=== PATIENT | female | born 1970 | race African-American/Black ===

== ENCOUNTER 2017-01-01 07:53 | Emergency (ER) | payer MEDICAID ==
[~2017-01-01] VITALS: Ht 167.6 cm; Wt 72.0 kg
[~2017-01-01 07:53] MED LIST: HYDR12.54 PO; LORA0.5T2 PO; OXYC-23 PO
[2017-01-01] MEDS ORDERED: ONDANSETRON HCL 4MG/2ML VIAL IV STA (08:32)
[2017-01-01] MEDS ORDERED: MORPHINE SULFATE 4 MG/ML CPJ (NOT FOR IM USE) IV STA (08:32)
[2017-01-01] MEDS ORDERED: DEXAMETHASONE 10MG/ML 1ML VIAL IV ONE (08:45)
[2017-01-01 09:38] LABS: BASOPHILS % 0.9 % (0.0-2.0); HEMATOCRIT. 34.7 % (36.0-48.0); HEMOGLOBIN. 11.2 g/dL (12.0-16.0); LYMPHOCYTES % 27.1 % (20.0-50.0); MEAN CORPUSCULAR HGB CONC 32.2 g/dL (31.0-37.0); MEAN PLATELET VOLUME 7.3 fl (7.4-10.4); MONOCYTES % 9.7 % (2.0-8.0); NEUTROPHILS % 61.3 % (40.0-76.0); PLATELET 396 x1000/uL (130-400); RED BLOOD CELL COUNT 3.99 mill/uL (4.2-5.4); RED CELL DISTRIBUTION WIDTH 20.3 % (11.6-14.6); WHITE BLOOD COUNT 6.6 x1000/uL (4.5-11.0)
[2017-01-01 09:50] LABS: ALANINE AMINOTRANSFERASE 13 IU/L (13-61); ALBUMIN 3.7 g/dL (3.4-5.0); ANION GAP 13; CALCIUM 8.9 mg/dL (8.5-10.1); CARBON DIOXIDE 24 mEq/L (21-32); CHLORIDE 105 mEq/L (98-107); INDEX HEMOLYSI 1 (1-3); INDEX ICTERIC 1 (1-4); INDEX LIPEMIC 1 (1-3); UREA NITROGEN BLOOD 13 mg/dL (7-21); eGFR > 60 mL/min (>60)
[2017-01-01] MEDS ORDERED: ACETAMINOPHEN 325MG TABLET PO ONE (10:00)
[2017-01-01 10:11] LABS: HCG SCREEN NEGATIVE
[2017-01-01] MEDS ORDERED: IBUPROFEN 800MG TABLET PO ONE (10:45)
[2017-01-01] MEDS ORDERED: HYDROCODONE/ACETAMINOPHEN 5/325MG TABLET PO ONE (10:45)
[2017-01-01 11:02] VITALS: BP 124/94
[2017-01-03 13:07] LABS: HGB A 98.3 % (94.0-98.0); HGB A2 1.7 % (0.7-3.1); HGB SOLUBILITY Negative (Negative)
== END 2017-01-01 12:21 | disposition home or self-care (01) ==
LOC: ER 08:00
DX: M54.42 Lumbago with sciatica, left side (principal); M54.41 Lumbago with sciatica, right side; D64.9 Anemia, unspecified; K21.9 Gastro-esophageal reflux disease without esophagitis; I10 Essential (primary) hypertension; D57.80 Other sickle-cell disorders without crisis; J45.909 Unspecified asthma, uncomplicated; Z76.5 Malingerer [conscious simulation]; Z88.0 Allergy status to penicillin; Z88.6 Allergy status to analgesic agent
CPT/HCPCS: 36415; 71010; 72100; 73502; 80053; 83021; 83615; 84703; 85025; 85044; 85660; 93005; 93971; 96374; 96375; 99285; J1100; J2270; J2405; Z7610

== ENCOUNTER 2017-01-05 11:04 | Emergency (ER) | payer MEDICAID ==
[~2017-01-05] VITALS: Ht 162.6 cm; Wt 64.0 kg
[2017-01-05 11:06] VITALS: BP 152/73
[2017-01-05] MEDS ORDERED: ACETAMINOPHEN 325MG TABLET PO ONE (11:15)
[2017-01-05] MEDS ORDERED: ONDANSETRON 4MG ODT PO ONE (11:15)
[2017-01-05 11:39] LABS: BASOPHILS % 0.8 % (0.0-2.0); EOSINOPHILS % 1.1 % (0.0-5.0); HEMATOCRIT. 32.2 % (36.0-48.0); HEMOGLOBIN. 10.3 g/dL (12.0-16.0); LYMPHOCYTES % 17.9 % (20.0-50.0); MEAN CORPUSCULAR HEMOGLOBIN 27.8 pg (28.0-32.0); MEAN CORPUSCULAR VOLUME 86.9 fL (81.0-99.0); MEAN PLATELET VOLUME 7.2 fl (7.4-10.4); MONOCYTES % 6.1 % (2.0-8.0); NEUTROPHILS % 74.1 % (40.0-76.0); PLATELET 370 x1000/uL (130-400); RED BLOOD CELL COUNT 3.71 mill/uL (4.2-5.4); RED CELL DISTRIBUTION WIDTH 21.3 % (11.6-14.6); WHITE BLOOD COUNT 9.3 x1000/uL (4.5-11.0)
[2017-01-05 11:46] LABS: PROTHROMBIN TIME 10.5 sec
[2017-01-05 11:53] LABS: HCG SCREEN NEGATIVE
[2017-01-05 11:57] LABS: ALANINE AMINOTRANSFERASE 16 IU/L (13-61); ALBUMIN 3.8 g/dL (3.4-5.0); ANION GAP 13; CALCIUM 8.9 mg/dL (8.5-10.1); CARBON DIOXIDE 30 mEq/L (21-32); CHLORIDE 107 mEq/L (98-107); INDEX HEMOLYSI 1 (1-3); INDEX ICTERIC 1 (1-4); INDEX LIPEMIC 1 (1-3); LIPASE 89 IU/L (73-393); UREA NITROGEN BLOOD 10 mg/dL (7-21); eGFR > 60 mL/min (>60)
== END 2017-01-05 14:17 | disposition home or self-care (01) ==
LOC: ER 11:49
DX: R10.9 Unspecified abdominal pain (principal); Z88.0 Allergy status to penicillin; Z88.6 Allergy status to analgesic agent; Z79.899 Other long term (current) drug therapy; J45.909 Unspecified asthma, uncomplicated; K21.9 Gastro-esophageal reflux disease without esophagitis; I10 Essential (primary) hypertension; D57.1 Sickle-cell disease without crisis
CPT/HCPCS: 36415; 74000; 80053; 83690; 84703; 85025; 85610; 99285; J7030; Q0162; Z7610

== ENCOUNTER 2017-01-05 19:08 | Emergency (ER) | payer MEDICAID ==
[~2017-01-05] VITALS: Ht 160 cm; Wt 64.0 kg
[2017-01-05] MEDS ORDERED: ONDANSETRON HCL 4MG/2ML VIAL IV ONE (19:45)
[2017-01-05] MEDS ORDERED: SODIUM CHLORIDE 0.9% 1,000 ML IV ONE (19:45)
[2017-01-05] MEDS ORDERED: FAMOTIDINE 20MG/2ML VIAL IV SCH (19:45)
[2017-01-05] MEDS ORDERED: KETOROLAC 60MG/2ML VIAL IM ONE (21:00)
[2017-01-05] MEDS ORDERED: FAMOTIDINE 20MG TABLET PO ONE (21:00)
[2017-01-05] MEDS ORDERED: ONDANSETRON 4MG ODT PO ONE (21:00)
[2017-01-05 22:39] VITALS: BP 126/70
== END 2017-01-05 23:13 | disposition home or self-care (01) ==
LOC: ER 19:52
DX: R10.9 Unspecified abdominal pain (principal); Z88.6 Allergy status to analgesic agent; Z88.0 Allergy status to penicillin; Z79.899 Other long term (current) drug therapy; K21.9 Gastro-esophageal reflux disease without esophagitis; J45.909 Unspecified asthma, uncomplicated; I10 Essential (primary) hypertension; D57.1 Sickle-cell disease without crisis
CPT/HCPCS: 96372; 99283; J1885; J7030; Q0162; Z7610; J2405; J3490

== ENCOUNTER 2017-01-16 04:55 | Emergency (ER) | payer MEDICAID ==
[~2017-01-16] VITALS: Ht 160 cm; Wt 54.0 kg
[2017-01-16] MEDS ORDERED: ONDANSETRON HCL 4MG/2ML VIAL IV STA (06:34)
[2017-01-16] MEDS ORDERED: MAGNESIUM/ALUMINUM HYDROXIDE/SIMETHICONE 30ML UDC PO STA (06:34)
[2017-01-16] MEDS ORDERED: SODIUM CHLORIDE 0.9% 1,000 ML IV ONE (06:34)
[2017-01-16] MEDS ORDERED: MORPHINE SULFATE 4 MG/ML CPJ (NOT FOR IM USE) IV STA (06:34)
[2017-01-16] MEDS ORDERED: VISCOUS LIDOCAINE 2% 15 ML UDC PO STA (06:34)
[2017-01-16 07:18] LABS: BASOPHILS % 0.9 % (0.0-2.0); EOSINOPHILS % 0.2 % (0.0-5.0); HEMATOCRIT. 33.6 % (36.0-48.0); HEMOGLOBIN. 10.8 g/dL (12.0-16.0); LYMPHOCYTES % 26.7 % (20.0-50.0); MEAN CORPUSCULAR HEMOGLOBIN 27.8 pg (28.0-32.0); MEAN CORPUSCULAR HGB CONC 32.1 g/dL (31.0-37.0); MEAN CORPUSCULAR VOLUME 86.7 fL (81.0-99.0); MEAN PLATELET VOLUME 7.8 fl (7.4-10.4); NEUTROPHILS % 60.2 % (40.0-76.0); PLATELET 477 x1000/uL (130-400); RED BLOOD CELL COUNT 3.87 mill/uL (4.2-5.4); RED CELL DISTRIBUTION WIDTH 22.1 % (11.6-14.6); WHITE BLOOD COUNT 7.3 x1000/uL (4.5-11.0)
[2017-01-16 07:26] LABS: INR 1.1; PROTHROMBIN TIME 11.1 sec
[2017-01-16 07:31] LABS: ADD RBC MORPHOLOGY YES; DIFFERENTIAL COMMENT 1; HCG SCREEN NEGATIVE
[2017-01-16 07:34] LABS: ALANINE AMINOTRANSFERASE 22 IU/L (13-61); ALBUMIN 4.2 g/dL (3.4-5.0); ANION GAP 14; CALCIUM 9.9 mg/dL (8.5-10.1); CARBON DIOXIDE 30 mEq/L (21-32); CHLORIDE 96 mEq/L (98-107); ETHANOL BLOOD < 10 mg/dL; INDEX HEMOLYSI 1 (1-3); INDEX ICTERIC 1 (1-4); INDEX LIPEMIC 1 (1-3); LIPASE 408 IU/L (73-393); UREA NITROGEN BLOOD 15 mg/dL (7-21); eGFR > 60 mL/min (>60)
[2017-01-16 07:56] LABS: ANISOCYTOSIS 1+; PLATELET ESTIMATE INCREASED
[2017-01-16] MEDS ORDERED: FAMOTIDINE 20MG TABLET PO ONE (08:30)
[2017-01-16] MEDS ORDERED: DIPHENHYDRAMINE 25MG CAPSULE PO ONE (09:30)
[2017-01-16 09:44] LABS: CLARITY URINE CLEAR (CLEAR); COLOR URINE YELLOW (YELLOW); GLUCOSE URINE NEGATIVE (NEGATIVE); KETONES URINE 3+ (NEGATIVE); LEUKOCYTE ESTERASE URINE NEGATIVE (NEGATIVE); NITRITE URINE NEGATIVE (NEGATIVE); OCCULT BLOOD URINE NEGATIVE (NEGATIVE); PROTEIN URINE NEGATIVE (NEGATIVE); SPECIFIC GRAVITY URINE 1.024 (1.005-1.030)
[2017-01-16 10:20] LABS: *AMPHETAMINES SCREEN URINE NEGATIVE (NEGATIVE); *BARBITURATES SCREEN URINE NEGATIVE (NEGATIVE); *COCAINE SCREEN URINE NEGATIVE (NEGATIVE); ECSTASY MDMA SCREEN URINE NEGATIVE (NEGATIVE); METHADONE URINE SCREEN NEGATIVE (NEGATIVE); PHENCYCLIDINE URINE SCREEN NEGATIVE (NEGATIVE)
[2017-01-16 10:24] LABS: *BENZODIAZEPINES SCREEN URINE PRESUMTIVE POSITIVE (NEGATIVE); CANNABINOID URINE SCREEN PRESUMTIVE POSITIVE (NEGATIVE); OPIATES URINE SCREEN PRESUMTIVE POSITIVE (NEGATIVE)
[2017-01-16 11:15] VITALS: BP 124/78
== END 2017-01-16 11:48 | disposition home or self-care (01) ==
LOC: ER 04:56
DX: R10.9 Unspecified abdominal pain (principal); F41.9 Anxiety disorder, unspecified; I10 Essential (primary) hypertension; K57.92 Diverticulitis of intestine, part unspecified, without perforation or abscess without bleeding; D57.1 Sickle-cell disease without crisis; F17.200 Nicotine dependence, unspecified, uncomplicated; Z98.890 Other specified postprocedural states; Z88.0 Allergy status to penicillin; Z88.6 Allergy status to analgesic agent
CPT/HCPCS: 36415; 71010; 74000; 80053; 80305; 81003; 83690; 84703; 85025; 85610; 93005; 96361; 96374; 96375; 99285; G0482; J2405; J7030; Z7610; J2270; Q0163

== ENCOUNTER 2017-04-17 07:31 | Inpatient (IN) | payer MEDICAID ==
[~2017-04-17] VITALS: Ht 162.6 cm; Wt 59.9 kg
[2017-04-17] MEDS ORDERED: MORPHINE SULFATE 2 MG/ML CPJ (NOT FOR IM USE) IV ONE (09:15)
[2017-04-17] MEDS ORDERED: ONDANSETRON HCL 4MG/2ML VIAL IV ONE (09:15)
[2017-04-17] MEDS ORDERED: SODIUM CHLORIDE 0.9% 1,000 ML IV ONE (09:15)
[2017-04-17 09:57] LABS: BASOPHILS % 0.7 % (0.0-2.0); EOSINOPHILS % 0.4 % (0.0-5.0); HEMATOCRIT. 34.6 % (36.0-48.0); HEMOGLOBIN. 11.3 g/dL (12.0-16.0); LYMPHOCYTES % 16.9 % (20.0-50.0); MEAN CORPUSCULAR HEMOGLOBIN 30.1 pg (28.0-32.0); MEAN CORPUSCULAR VOLUME 91.8 fL (81.0-99.0); MEAN PLATELET VOLUME 7.9 fl (7.4-10.4); MONOCYTES % 8.2 % (2.0-8.0); NEUTROPHILS % 73.8 % (40.0-76.0); PLATELET 360 x1000/uL (130-400); RED BLOOD CELL COUNT 3.77 mill/uL (4.2-5.4)
[2017-04-17 10:09] LABS: CARBON DIOXIDE 27 mEq/L (21-32); CHLORIDE 104 mEq/L (98-107)
[2017-04-17 10:14] LABS: TROPONIN I < 0.02 ng/mL (0.00-0.04)
[2017-04-17] MEDS ORDERED: LORAZEPAM 2MG/ML CPJ IV ONE (10:15)
[2017-04-17 10:40] LABS: CLARITY URINE CLEAR (CLEAR); COLOR URINE YELLOW (YELLOW); GLUCOSE URINE NEGATIVE (NEGATIVE); KETONES URINE TRACE (NEGATIVE); LEUKOCYTE ESTERASE URINE NEGATIVE (NEGATIVE); NITRITE URINE NEGATIVE (NEGATIVE); OCCULT BLOOD URINE NEGATIVE (NEGATIVE); PH URINE 5.5 (4.5-8.0); PROTEIN URINE TRACE (NEGATIVE); SPECIFIC GRAVITY URINE 1.028 (1.005-1.030)
[2017-04-17] MEDS ORDERED: MORPHINE SULFATE 4 MG/ML CPJ (NOT FOR IM USE) IV ONE (11:00)
[2017-04-17] MEDS ORDERED: PROCHLORPERAZINE 10MG/2ML VIAL IM ONE (11:00)
[2017-04-17] MEDS ORDERED: IPRATROPIUM/ALBUTEROL 0.5-3(2.5)MG/3ML NEB INH PRN (11:45)
[2017-04-17] MEDS ORDERED: ACETAMINOPHEN 325MG TABLET PO PRN (11:45)
[2017-04-17] MEDS ORDERED: CLONIDINE 0.1MG TABLET PO PRN (11:45)
[2017-04-17] MEDS ORDERED: HYDROCODONE/ACETAMINOPHEN 5/325MG TABLET PO PRN (11:45)
[2017-04-17] MEDS: PANTOPRAZOLE SODIUM 40 MG/VIAL IV SCH (15:07)
[2017-04-17] MEDS: SODIUM CHLORIDE 0.9% 1,000 ML IV SCH (15:07)
[2017-04-17] MEDS: HYDROMORPHONE HCL/PF 2MG/ML CPJ IV PRN (20:37)
[2017-04-17] MEDS: ONDANSETRON HCL 4MG/2ML VIAL IV PRN (20:38)
[2017-04-18] VITALS: BP 169/86
[2017-04-18] MEDS: DIPHENHYDRAMINE 50MG/ML VIAL IV PRN ×6 (00:20→21:59)
[2017-04-18] MEDS: HYDROMORPHONE HCL/PF 2MG/ML CPJ IV PRN ×6 (00:20→21:59)
[2017-04-18] MEDS: SODIUM CHLORIDE 0.9% 1,000 ML IV SCH ×2 (00:32→12:48)
[2017-04-18] MEDS: ONDANSETRON HCL 4MG/2ML VIAL IV PRN ×2 (02:32→08:45)
[2017-04-18 03:46] VITALS: BP 164/92
[2017-04-18] MEDS ORDERED: LORA2TAB2 PO (06:07)
[2017-04-18] MEDS ORDERED: CARI350T27 PO (06:07)
[2017-04-18] MEDS ORDERED: PANT40TA4 PO (06:07)
[2017-04-18] MEDS ORDERED: MAPAP PO (06:07)
[2017-04-18] MEDS ORDERED: HYDR8TAB43 PO (06:09)
[2017-04-18 08:00] VITALS: BP 126/97
[2017-04-18] MEDS: FOLIC ACID/VITAMIN B COMP W-C TABLET PO SCH (08:26)
[2017-04-18] MEDS: PANTOPRAZOLE SODIUM 40 MG/VIAL IV SCH (08:26)
[2017-04-18 10:25] LABS: CARBON DIOXIDE 24 mEq/L (21-32); CHLORIDE 102 mEq/L (98-107); HDL CHOLESTEROL 77 mg/dL (40-59); LDL CHOLESTEROL 60 mg/dL (5-100)
[2017-04-18 10:58] LABS: *AMPHETAMINES SCREEN URINE NEGATIVE (NEGATIVE); *BARBITURATES SCREEN URINE NEGATIVE (NEGATIVE); *BENZODIAZEPINES SCREEN URINE NEGATIVE (NEGATIVE); *COCAINE SCREEN URINE NEGATIVE (NEGATIVE); METHADONE URINE SCREEN NEGATIVE (NEGATIVE); PHENCYCLIDINE URINE SCREEN NEGATIVE (NEGATIVE)
[2017-04-18 11:08] LABS: CANNABINOID URINE SCREEN PRESUMTIVE POSITIVE (NEGATIVE); OPIATES URINE SCREEN PRESUMTIVE POSITIVE (NEGATIVE)
[2017-04-18] MEDS ORDERED: LORAZEPAM 0.5MG TABLET PO PRN (11:45)
[2017-04-18 11:47] VITALS: BP 121/86
[2017-04-18] MEDS: METOCLOPRAMIDE HCL 5MG TABLET PO SCH ×2 (12:49→17:12)
[2017-04-18 15:34] LABS: BASOPHILS % 0.7 % (0.0-2.0); EOSINOPHILS % 0.5 % (0.0-5.0); HEMATOCRIT. 32.9 % (36.0-48.0); HEMOGLOBIN. 10.4 g/dL (12.0-16.0); MEAN CORPUSCULAR HEMOGLOBIN 29.2 pg (28.0-32.0); MEAN CORPUSCULAR VOLUME 92.7 fL (81.0-99.0); MONOCYTES % 10.5 % (2.0-8.0); NEUTROPHILS % 55.3 % (40.0-76.0); PLATELET 322 x1000/uL (130-400); RED BLOOD CELL COUNT 3.55 mill/uL (4.2-5.4)
[2017-04-18 15:54] VITALS: BP 115/71
[2017-04-18 20:14] VITALS: BP 130/75
[2017-04-19] MEDS: METOCLOPRAMIDE HCL 5MG TABLET PO SCH ×2 (00:04→05:48)
[2017-04-19 00:13] VITALS: BP 128/81
[2017-04-19] MEDS: DIPHENHYDRAMINE 50MG/ML VIAL IV PRN (01:52)
[2017-04-19] MEDS: HYDROMORPHONE HCL/PF 2MG/ML CPJ IV PRN (01:53)
[2017-04-19 04:00] VITALS: BP 128/83
[2017-04-19 08:00] VITALS: BP 130/94
[2017-04-19] MEDS: PANTOPRAZOLE SODIUM 40 MG/VIAL IV SCH (08:56)
[2017-04-19] MEDS ORDERED: HYDROCHLOROTHIAZIDE 12.5MG CAPSULE PO SCH (09:00)
[2017-04-19] MEDS: FOLIC ACID/VITAMIN B COMP W-C TABLET PO SCH (09:08)
[2017-04-19] MEDS ORDERED: HYDROMORPHONE HCL/PF 2MG/ML CPJ IM PRN ×2 (09:12→11:45)
[2017-04-19] MEDS ORDERED: DIPHENHYDRAMINE 50MG/ML VIAL IM PRN ×2 (09:12→11:45)
[2017-04-19 11:13] VITALS: BP 130/94
[2017-04-19 11:46] VITALS: BP 129/88
== END 2017-04-19 11:50 | disposition home or self-care (01) | DRG 241 ==
LOC: ER 07:40 → 8WST 11:30 → ENRESERV 22:48
PROVIDERS: ADMIT Internal Medicine; ATTEND Internal Medicine
DX: K29.70 Gastritis, unspecified, without bleeding (principal); D57.1 Sickle-cell disease without crisis; I10 Essential (primary) hypertension; F41.9 Anxiety disorder, unspecified; D18.03 Hemangioma of intra-abdominal structures; Z79.899 Other long term (current) drug therapy; Z82.49 Family history of ischemic heart disease and other diseases of the circulatory system; Z82.5 Family history of asthma and other chronic lower respiratory diseases; Z88.0 Allergy status to penicillin; Z88.8 Allergy status to other drugs, medicaments and biological substances
CPT/HCPCS: 36415; 71010; 76705; 80053; 80061; 80305; 81001; 83690; 84484; 85025; 85044; 87040; 87086; 96361; 96372; 96374; 96375; 96376; 99285; C1893; C9113; J0780; J1170; J1200; J2060; J2270; J2405; J7030; J8597

== ENCOUNTER 2017-04-22 23:49 | Emergency (ER) | payer MEDICAID ==
[~2017-04-22] VITALS: Ht 167.6 cm; Wt 63.0 kg
[~2017-04-22 23:49] MED LIST changes: +CARI350T27 PO; +HYDR8TAB43 PO; +LORA2TAB2 PO; +MAPAP PO; +PANT40TA4 PO
[2017-04-23] MEDS ORDERED: MORPHINE SULFATE 4 MG/ML CPJ (NOT FOR IM USE) IV STA (00:09)
[2017-04-23] MEDS ORDERED: SODIUM CHLORIDE 0.9% 1,000 ML IV ONE ×2 (00:09→01:30)
[2017-04-23] MEDS ORDERED: FAMOTIDINE 20MG/2ML VIAL IV STA (00:09)
[2017-04-23] MEDS ORDERED: DIPHENHYDRAMINE 50MG/ML VIAL IV STA (00:09)
[2017-04-23 00:57] LABS: BASOPHILS % 0.7 % (0.0-2.0); EOSINOPHILS % 0.7 % (0.0-5.0); HEMATOCRIT. 33.2 % (36.0-48.0); HEMOGLOBIN. 10.7 g/dL (12.0-16.0); LYMPHOCYTES % 26.6 % (20.0-50.0); MEAN CORPUSCULAR VOLUME 92.6 fL (81.0-99.0); MEAN PLATELET VOLUME 7.9 fl (7.4-10.4); MONOCYTES % 9.3 % (2.0-8.0); NEUTROPHILS % 62.7 % (40.0-76.0); PLATELET 383 x1000/uL (130-400); RED BLOOD CELL COUNT 3.58 mill/uL (4.2-5.4); RED CELL DISTRIBUTION WIDTH 20.3 % (11.6-14.6)
[2017-04-23 00:58] LABS: HCG SCREEN NEGATIVE
[2017-04-23 01:08] LABS: CARBON DIOXIDE 26 mEq/L (21-32); CHLORIDE 102 mEq/L (98-107); ETHANOL BLOOD < 10 mg/dL; TROPONIN I < 0.02 ng/mL (0.00-0.04)
[2017-04-23] MEDS ORDERED: FENTANYL CITRATE/PF 50MCG/ML 2ML VIAL IV ONE (02:00)
[2017-04-23 05:55] VITALS: BP 136/72
== END 2017-04-23 05:57 | disposition home or self-care (01) ==
LOC: ER 23:49
DX: R10.84 Generalized abdominal pain (principal); E87.2 Acidosis; D57.1 Sickle-cell disease without crisis; J45.909 Unspecified asthma, uncomplicated; I10 Essential (primary) hypertension; Z88.0 Allergy status to penicillin; Z88.8 Allergy status to other drugs, medicaments and biological substances; Z98.890 Other specified postprocedural states; Z86.11 Personal history of tuberculosis
CPT/HCPCS: 36415; 71010; 74176; 80053; 83605; 83690; 84484; 84703; 85025; 85044; 93005; 96361; 96374; 96375; 99285; G0482; J1200; J2270; J3010; J3490; J7030; Z7610

== ENCOUNTER 2017-05-01 02:18 | Emergency (ER) | payer MEDICAID ==
[~2017-05-01] VITALS: Ht 152.4 cm; Wt 63.0 kg
[2017-05-01] MEDS ORDERED: ONDANSETRON HCL 4MG/2ML VIAL IV STA (02:32)
[2017-05-01] MEDS ORDERED: MORPHINE SULFATE 4 MG/ML CPJ (NOT FOR IM USE) IV STA (02:32)
[2017-05-01] MEDS ORDERED: SODIUM CHLORIDE 0.9% 1000ML BAG (SEPSIS BOLUS) IV ONE (02:45)
[2017-05-01] MEDS ORDERED: DIPHENHYDRAMINE 50MG/ML VIAL IV ONE (03:00)
[2017-05-01 03:20] LABS: EOSINOPHILS % 0.2 % (0.0-5.0); HEMATOCRIT. 36.8 % (36.0-48.0); HEMOGLOBIN. 12.3 g/dL (12.0-16.0); LYMPHOCYTES % 18.7 % (20.0-50.0); MEAN CORPUSCULAR HEMOGLOBIN 30.5 pg (28.0-32.0); MEAN CORPUSCULAR VOLUME 91.2 fL (81.0-99.0); MEAN PLATELET VOLUME 8.2 fl (7.4-10.4); MONOCYTES % 5.7 % (2.0-8.0); NEUTROPHILS % 74.4 % (40.0-76.0); PLATELET 398 x1000/uL (130-400); RED BLOOD CELL COUNT 4.04 mill/uL (4.2-5.4); RED CELL DISTRIBUTION WIDTH 18.8 % (11.6-14.6)
[2017-05-01 03:26] LABS: HCG SCREEN NEGATIVE
[2017-05-01 03:33] LABS: CARBON DIOXIDE 26 mEq/L (21-32); CHLORIDE 102 mEq/L (98-107); ETHANOL BLOOD < 10 mg/dL
[2017-05-01 04:00] VITALS: BP 121/79
== END 2017-05-01 04:55 | disposition home or self-care (01) ==
LOC: ER 02:23
DX: M79.1 Myalgia (principal); J45.909 Unspecified asthma, uncomplicated; I10 Essential (primary) hypertension; D57.1 Sickle-cell disease without crisis; Z88.0 Allergy status to penicillin; Z88.6 Allergy status to analgesic agent
CPT/HCPCS: 36415; 71010; 80053; 83605; 83690; 84703; 85025; 85044; 96374; 96375; 99285; C1893; G0482; J1200; J2270; J2405; J7030; Z7610

== ENCOUNTER 2017-06-16 19:51 | Inpatient (IN) | payer MEDICAID ==
[~2017-06-16] VITALS: Ht 152.4 cm; Wt 71.7 kg
[2017-06-16] MEDS ORDERED: ONDANSETRON HCL 4MG/2ML VIAL IV STA (20:48)
[2017-06-16] MEDS ORDERED: SODIUM CHLORIDE 0.9% 1,000 ML IV ONE (20:48)
[2017-06-16] MEDS ORDERED: MORPHINE SULFATE 4 MG/ML CPJ (NOT FOR IM USE) IV STA (21:02)
[2017-06-16 23:14] LABS: BASOPHILS % 0.6 % (0.0-2.0); EOSINOPHILS % 0.9 % (0.0-5.0); HEMOGLOBIN. 10.3 g/dL (12.0-16.0); LYMPHOCYTES % 17.9 % (20.0-50.0); MEAN CORPUSCULAR HEMOGLOBIN 29.5 pg (28.0-32.0); MEAN CORPUSCULAR VOLUME 91.3 fL (81.0-99.0); MEAN PLATELET VOLUME 7.9 fl (7.4-10.4); NEUTROPHILS % 74.6 % (40.0-76.0); PLATELET 373 x1000/uL (130-400); RED BLOOD CELL COUNT 3.51 mill/uL (4.2-5.4); RED CELL DISTRIBUTION WIDTH 18.7 % (11.6-14.6)
[2017-06-16] MEDS ORDERED: DIPHENHYDRAMINE 50MG/ML VIAL IV ONE (23:15)
[2017-06-16 23:21] LABS: CARBON DIOXIDE 26 mEq/L (21-32); CHLORIDE 102 mEq/L (98-107)
[2017-06-16 23:26] LABS: D-DIMER 0.56 mg/L FEU (<0.50); INR 1.1; PROTHROMBIN TIME 11.2 sec (9.4-11.6)
[2017-06-16 23:29] LABS: TROPONIN I < 0.02 ng/mL (0.00-0.04)
[2017-06-16 23:44] LABS: HCG SCREEN NEGATIVE
[2017-06-16] MEDS ORDERED: ASPIRIN 325MG EC TABLET PO ONE (23:45)
[2017-06-17] MEDS ORDERED: ENOXAPARIN 80MG/0.8ML SYR SUBCUT ONE
[2017-06-17] MEDS ORDERED: DIPHENHYDRAMINE 50MG/ML VIAL IV ONE (00:30)
[2017-06-17] MEDS ORDERED: HYDROCODONE/APAP 7.5/325MG 1 TAB TABLET PO ONE (02:00)
[2017-06-17 03:10] LABS: CLARITY URINE CLEAR (CLEAR); COLOR URINE YELLOW (YELLOW); GLUCOSE URINE NEGATIVE (NEGATIVE); KETONES URINE TRACE (NEGATIVE); LEUKOCYTE ESTERASE URINE NEGATIVE (NEGATIVE); NITRITE URINE NEGATIVE (NEGATIVE); OCCULT BLOOD URINE 3+ (NEGATIVE); PROTEIN URINE NEGATIVE (NEGATIVE); SPECIFIC GRAVITY URINE 1.013 (1.005-1.030); UROBILINOGEN URINE 0.2 E.U./dL (0.2-1.0)
[2017-06-17 03:50] LABS: *AMPHETAMINES SCREEN URINE NEGATIVE (NEGATIVE); *BARBITURATES SCREEN URINE NEGATIVE (NEGATIVE); *BENZODIAZEPINES SCREEN URINE NEGATIVE (NEGATIVE); *COCAINE SCREEN URINE NEGATIVE (NEGATIVE); METHADONE URINE SCREEN NEGATIVE (NEGATIVE); PHENCYCLIDINE URINE SCREEN NEGATIVE (NEGATIVE)
[2017-06-17 04:12] LABS: CANNABINOID URINE SCREEN PRESUMTIVE POSITIVE (NEGATIVE); OPIATES URINE SCREEN PRESUMTIVE POSITIVE (NEGATIVE)
[2017-06-17] MEDS ORDERED: MORPHINE SULFATE 4 MG/ML CPJ (NOT FOR IM USE) IV STA (04:16)
[2017-06-17 08:30] VITALS: BP 109/64
[2017-06-17 09:45] VITALS: BP 109/64
[2017-06-17] MEDS ORDERED: ONDANSETRON HCL 4MG/2ML VIAL IV PRN (10:00)
[2017-06-17] MEDS ORDERED: HYDROCODONE/ACETAMINOPHEN 5/325MG TABLET PO PRN (10:00)
[2017-06-17] MEDS ORDERED: CLONIDINE 0.1MG TABLET PO PRN (10:00)
[2017-06-17] MEDS ORDERED: IPRATROPIUM/ALBUTEROL 0.5-3(2.5)MG/3ML NEB INH PRN (10:00)
[2017-06-17] MEDS ORDERED: GUAIFENESIN 200MG/10ML SUGAR FREE UDC PO PRN (10:00)
[2017-06-17] MEDS ORDERED: DIPHENHYDRAMINE 50MG/ML VIAL IV PRN (10:00)
[2017-06-17] MEDS ORDERED: DOCUSATE SODIUM 100MG CAPSULE PO PRN (10:00)
[2017-06-17] MEDS ORDERED: ACETAMINOPHEN 325MG TABLET PO PRN (10:00)
[2017-06-17] MEDS: HYDROMORPHONE HCL/PF 2MG/ML CPJ IV PRN ×4 (10:27→22:58)
[2017-06-17 12:00] VITALS: BP 113/59
[2017-06-17] MEDS ORDERED: LORAZEPAM 2MG/ML CPJ IV PRN (12:15)
[2017-06-17] MEDS: SODIUM CHLORIDE 0.9% 1,000 ML IV SCH ×2 (14:41→23:20)
[2017-06-17] MEDS: LEVOFLOXACIN 500MG PREMIX 100 ML IV SCH (14:41)
[2017-06-17 16:00] VITALS: BP 102/67
[2017-06-17 20:00] VITALS: BP 130/76
[2017-06-18] VITALS (7 sets, daily range): BP systolic 98–124; BP diastolic 48–68
[2017-06-18] MEDS: HYDROMORPHONE HCL/PF 2MG/ML CPJ IV PRN ×5 (01:53→13:43)
[2017-06-18 06:36] LABS: CARBON DIOXIDE 26 mEq/L (21-32); CHLORIDE 105 mEq/L (98-107); HDL CHOLESTEROL 47 mg/dL (40-59); LDL CHOLESTEROL 56 mg/dL (5-100)
[2017-06-18 07:10] LABS: BASOPHILS % 0.6 % (0.0-2.0); EOSINOPHILS % 2.4 % (0.0-5.0); HEMATOCRIT. 31.8 % (36.0-48.0); HEMOGLOBIN. 10.2 g/dL (12.0-16.0); LYMPHOCYTES % 39.6 % (20.0-50.0); MEAN CORPUSCULAR HEMOGLOBIN 29.9 pg (28.0-32.0); MEAN CORPUSCULAR VOLUME 93.6 fL (81.0-99.0); MEAN PLATELET VOLUME 8.7 fl (7.4-10.4); MONOCYTES % 10.3 % (2.0-8.0); NEUTROPHILS % 47.1 % (40.0-76.0); PLATELET 323 x1000/uL (130-400); RED CELL DISTRIBUTION WIDTH 18.9 % (11.6-14.6)
[2017-06-18] MEDS ORDERED: ASPIRIN 81MG EC TABLET PO SCH (09:00)
[2017-06-18] MEDS: LEVOFLOXACIN 500MG PREMIX 100 ML IV SCH (10:55)
== END 2017-06-18 14:10 | disposition home or self-care (01) | DRG 198 ==
LOC: ER 20:54 → 7WST 06-17 00:11 → ENRESERV 06-17 07:12
PROVIDERS: ADMIT Hospitalist; ATTEND Hospitalist
DX: I24.9 Acute ischemic heart disease, unspecified (principal); D57.00 Hb-SS disease with crisis, unspecified; J18.9 Pneumonia, unspecified organism; F17.210 Nicotine dependence, cigarettes, uncomplicated; I10 Essential (primary) hypertension; J45.909 Unspecified asthma, uncomplicated; Z82.49 Family history of ischemic heart disease and other diseases of the circulatory system; Z82.5 Family history of asthma and other chronic lower respiratory diseases; Z88.0 Allergy status to penicillin; Z88.8 Allergy status to other drugs, medicaments and biological substances; Z79.1 Long term (current) use of non-steroidal anti-inflammatories (NSAID); Z79.899 Other long term (current) drug therapy
CPT/HCPCS: 36415; 71010; 78582; 80053; 80061; 80305; 81001; 83690; 84484; 84703; 85025; 85044; 85379; 85610; 85730; 93005; 93970; 96361; 96372; 96374; 96375; 99285; A9558; J1170; J1200; J1650; J1956; J2060; J2270; J2405; J7030

== ENCOUNTER 2017-07-06 15:36 | Emergency (ER) | payer MEDICAID ==
[~2017-07-06] VITALS: Ht 165.1 cm; Wt 65.0 kg
[2017-07-06] MEDS ORDERED: NITROGLYCERIN OINT 1GM/INCH UDPKT TD STA (16:29)
[2017-07-06] MEDS ORDERED: ASPIRIN 325MG EC TABLET PO ONE (16:30)
[2017-07-06] MEDS ORDERED: ONDANSETRON 4MG ODT PO ONE (17:15)
[2017-07-06] MEDS ORDERED: LORAZEPAM 2MG/ML CPJ IM ONE (17:15)
[2017-07-06 17:59] VITALS: BP 140/84
[2017-07-06 18:09] LABS: CARBON DIOXIDE 26 mEq/L (21-32); CHLORIDE 106 mEq/L (98-107); TROPONIN I < 0.02 ng/mL (0.00-0.04)
[2017-07-06 18:53] LABS: BASOPHILS % 0.5 % (0.0-2.0); EOSINOPHILS % 0.5 % (0.0-5.0); HEMATOCRIT. 34.9 % (36.0-48.0); HEMOGLOBIN. 11.4 g/dL (12.0-16.0); LYMPHOCYTES % 17.1 % (20.0-50.0); MEAN CORPUSCULAR HEMOGLOBIN 29.9 pg (28.0-32.0); MEAN CORPUSCULAR VOLUME 91.8 fL (81.0-99.0); MEAN PLATELET VOLUME 8.1 fl (7.4-10.4); MONOCYTES % 6.1 % (2.0-8.0); NEUTROPHILS % 75.8 % (40.0-76.0); PLATELET 273 x1000/uL (130-400); RED CELL DISTRIBUTION WIDTH 18.6 % (11.6-14.6)
== END 2017-07-06 20:08 | disposition home or self-care (01) ==
LOC: ER 15:36
DX: R07.9 Chest pain, unspecified (principal); R11.2 Nausea with vomiting, unspecified; R50.9 Fever, unspecified; J45.909 Unspecified asthma, uncomplicated; I11.9 Hypertensive heart disease without heart failure; Z76.5 Malingerer [conscious simulation]; Z88.1 Allergy status to other antibiotic agents; Z88.6 Allergy status to analgesic agent
CPT/HCPCS: 36415; 71010; 80053; 83690; 84484; 85025; 96372; 99285; J2060; Q0162; Z7610

== ENCOUNTER 2017-07-17 13:45 | Emergency (ER) | payer MEDICAID ==
[~2017-07-17] VITALS: Ht 162.6 cm; Wt 64.0 kg
[2017-07-17] MEDS ORDERED: NITROGLYCERIN OINT 1GM/INCH UDPKT TD STA (15:10)
[2017-07-17] MEDS ORDERED: ASPIRIN 81MG TABLET PO STA (15:10)
[2017-07-17] MEDS ORDERED: ONDANSETRON 4MG ODT PO ONE (15:15)
[2017-07-17] MEDS ORDERED: LORAZEPAM 2MG/ML CPJ IM ONE (15:15)
[2017-07-17] MEDS ORDERED: ASPIRIN 81MG TABLET ONE (15:36)
[2017-07-17] MEDS ORDERED: LORAZEPAM 2MG/ML CPJ IV ONE (15:45)
[2017-07-17] MEDS ORDERED: ONDANSETRON HCL 4MG/2ML VIAL IV ONE (15:45)
[2017-07-17] MEDS ORDERED: PANTOPRAZOLE SODIUM 40 MG/VIAL IV ONE (15:45)
[2017-07-17 16:10] LABS: BASOPHILS % 0.8 % (0.0-2.0); EOSINOPHILS % 0.6 % (0.0-5.0); HEMATOCRIT. 36.8 % (36.0-48.0); HEMOGLOBIN. 11.9 g/dL (12.0-16.0); LYMPHOCYTES % 20.5 % (20.0-50.0); MEAN CORPUSCULAR HEMOGLOBIN 29.9 pg (28.0-32.0); MEAN CORPUSCULAR VOLUME 92.5 fL (81.0-99.0); MONOCYTES % 7.7 % (2.0-8.0); NEUTROPHILS % 70.4 % (40.0-76.0); PLATELET 355 x1000/uL (130-400); RED BLOOD CELL COUNT 3.98 mill/uL (4.2-5.4); RED CELL DISTRIBUTION WIDTH 18.9 % (11.6-14.6)
[2017-07-17 16:22] LABS: CARBON DIOXIDE 26 mEq/L (21-32); CHLORIDE 105 mEq/L (98-107)
[2017-07-17 16:26] LABS: TROPONIN I < 0.02 ng/mL (0.00-0.04)
[2017-07-17] MEDS ORDERED: DIPHENHYDRAMINE 50MG/ML VIAL IV ONE (16:45)
[2017-07-17] MEDS ORDERED: KETOROLAC 30MG/ML VIAL IV ONE (16:45)
[2017-07-17 17:28] VITALS: BP 133/94
== END 2017-07-17 17:40 | disposition left against medical advice (07) ==
LOC: ER 13:45
DX: R07.9 Chest pain, unspecified (principal); Z88.0 Allergy status to penicillin; I10 Essential (primary) hypertension
CPT/HCPCS: 36415; 80053; 83690; 84484; 85025; 96374; 96375; 99284; C9113; J1200; J1885; J2060; J2405; Z7610; Q0162

== ENCOUNTER 2017-07-24 12:17 | Emergency (ER) | payer MEDICAID ==
[~2017-07-24] VITALS: Ht 152.4 cm; Wt 67.0 kg
[2017-07-24 13:23] LABS: HEMATOCRIT. 34.9 % (36.0-48.0); HEMOGLOBIN. 11.4 g/dL (12.0-16.0); MEAN CORPUSCULAR HEMOGLOBIN 29.5 pg (28.0-32.0); MEAN CORPUSCULAR VOLUME 90.6 fL (81.0-99.0); RED BLOOD CELL COUNT 3.85 mill/uL (4.2-5.4); RED CELL DISTRIBUTION WIDTH 19.2 % (11.6-14.6)
[2017-07-24 13:30] LABS: CARBON DIOXIDE 25 mEq/L (21-32); CHLORIDE 109 mEq/L (98-107); ETHANOL BLOOD < 10 mg/dL
[2017-07-24] MEDS ORDERED: DIPHENHYDRAMINE 50MG/ML VIAL IV ONE (13:45)
[2017-07-24] MEDS ORDERED: SODIUM CHLORIDE 0.9% 1,000 ML IV ONE (13:45)
[2017-07-24] MEDS ORDERED: ONDANSETRON HCL 4MG/2ML VIAL IV ONE (13:45)
[2017-07-24 13:51] LABS: PLATELET ESTIMATE NORMAL
[2017-07-24 13:52] LABS: PLATELET 348 x1000/uL (130-400)
[2017-07-24] MEDS ORDERED: KETOROLAC 30MG/ML VIAL IV ONE (14:00)
[2017-07-24 14:39] LABS: PROTHROMBIN TIME 10.7 sec (9.4-11.6)
[2017-07-24 14:55] VITALS: BP 151/89
== END 2017-07-24 14:57 | disposition home or self-care (01) ==
LOC: ER 12:22
DX: R10.9 Unspecified abdominal pain (principal); R11.2 Nausea with vomiting, unspecified; F12.10 Cannabis abuse, uncomplicated; F17.200 Nicotine dependence, unspecified, uncomplicated; Z88.0 Allergy status to penicillin; Z88.6 Allergy status to analgesic agent; Z88.8 Allergy status to other drugs, medicaments and biological substances
CPT/HCPCS: 36415; 80053; 83690; 85025; 85610; 96361; 96374; 96375; 99284; C1893; G0482; J1200; J1885; J2405; J7030

== ENCOUNTER 2017-08-05 10:16 | Emergency (ER) | payer MEDICAID ==
[~2017-08-05] VITALS: Ht 167.6 cm; Wt 65.0 kg
[2017-08-05] MEDS ORDERED: ONDANSETRON HCL 4MG/2ML VIAL IV STA (10:24)
[2017-08-05] MEDS ORDERED: SODIUM CHLORIDE 0.9% 1,000 ML IV ONE (10:24)
[2017-08-05 11:57] LABS: BASOPHILS % 0.5 % (0.0-2.0); EOSINOPHILS % 0.2 % (0.0-5.0); HEMOGLOBIN. 12.1 g/dL (12.0-16.0); LYMPHOCYTES % 12.5 % (20.0-50.0); MEAN CORPUSCULAR HEMOGLOBIN 29.8 pg (28.0-32.0); MEAN CORPUSCULAR VOLUME 91.3 fL (81.0-99.0); MEAN PLATELET VOLUME 8.1 fl (7.4-10.4); MONOCYTES % 5.7 % (2.0-8.0); NEUTROPHILS % 81.1 % (40.0-76.0); PLATELET 324 x1000/uL (130-400); RED BLOOD CELL COUNT 4.05 mill/uL (4.2-5.4); RED CELL DISTRIBUTION WIDTH 18.7 % (11.6-14.6)
[2017-08-05 12:01] LABS: CLARITY URINE CLEAR (CLEAR); COLOR URINE YELLOW (YELLOW); GLUCOSE URINE NEGATIVE (NEGATIVE); KETONES URINE NEGATIVE (NEGATIVE); LEUKOCYTE ESTERASE URINE NEGATIVE (NEGATIVE); NITRITE URINE NEGATIVE (NEGATIVE); OCCULT BLOOD URINE NEGATIVE (NEGATIVE); PROTEIN URINE NEGATIVE (NEGATIVE); SPECIFIC GRAVITY URINE 1.017 (1.005-1.030)
[2017-08-05 12:05] LABS: HCG SCREEN NEGATIVE
[2017-08-05 12:12] LABS: CARBON DIOXIDE 26 mEq/L (21-32); CHLORIDE 101 mEq/L (98-107); ETHANOL BLOOD < 10 mg/dL; TROPONIN I < 0.02 ng/mL (0.00-0.04)
[2017-08-05 12:33] LABS: PROTHROMBIN TIME 10.7 sec (9.4-11.6)
[2017-08-05 12:39] LABS: *AMPHETAMINES SCREEN URINE NEGATIVE (NEGATIVE); *BARBITURATES SCREEN URINE NEGATIVE (NEGATIVE); *BENZODIAZEPINES SCREEN URINE PRESUMTIVE POSITIVE (NEGATIVE); *COCAINE SCREEN URINE NEGATIVE (NEGATIVE); CANNABINOID URINE SCREEN PRESUMTIVE POSITIVE (NEGATIVE); METHADONE URINE SCREEN NEGATIVE (NEGATIVE); OPIATES URINE SCREEN PRESUMTIVE POSITIVE (NEGATIVE); PHENCYCLIDINE URINE SCREEN NEGATIVE (NEGATIVE)
[2017-08-05] MEDS ORDERED: ONDANSETRON 4MG ODT PO ONE (15:45)
[2017-08-05] MEDS ORDERED: ACETAMINOPHEN 325MG TABLET PO ONE (15:45)
[2017-08-05 17:07] VITALS: BP 118/70
[2017-08-05] MEDS ORDERED: MAGNESIUM/ALUMINUM HYDROXIDE/SIMETHICONE 30ML UDC PO ONE (17:15)
== END 2017-08-05 17:14 | disposition home or self-care (01) ==
LOC: ER 10:23
DX: R07.89 Other chest pain (principal); F12.10 Cannabis abuse, uncomplicated; F11.10 Opioid abuse, uncomplicated; F13.10 Sedative, hypnotic or anxiolytic abuse, uncomplicated; Z88.0 Allergy status to penicillin; Z88.6 Allergy status to analgesic agent; Z87.19 Personal history of other diseases of the digestive system
CPT/HCPCS: 36415; 71010; 74176; 80053; 80305; 81003; 83690; 84484; 84703; 85025; 85610; 93005; 99285; C1893; G0482; J2405; J7030; Q0162; Z7610

== ENCOUNTER 2017-10-14 00:41 | Emergency (ER) | payer MEDICAID ==
[~2017-10-14] VITALS: Ht 172.7 cm; Wt 69.1 kg
[~2017-10-14 00:41] MED LIST changes: -MAPAP PO
[2017-10-14] MEDS ORDERED: SODIUM CHLORIDE 0.9% 1,000 ML IV ONE (01:23)
[2017-10-14 01:52] LABS: BASOPHILS % 0.7 % (0.0-2.0); EOSINOPHILS % 1.4 % (0.0-5.0); HEMATOCRIT. 37.9 % (36.0-48.0); HEMOGLOBIN. 12.1 g/dL (12.0-16.0); LYMPHOCYTES % 34.1 % (20.0-50.0); MEAN CORPUSCULAR HEMOGLOBIN 29.7 pg (28.0-32.0); MEAN CORPUSCULAR VOLUME 93.2 fL (81.0-99.0); MEAN PLATELET VOLUME 7.6 fl (7.4-10.4); MONOCYTES % 7.7 % (2.0-8.0); NEUTROPHILS % 56.1 % (40.0-76.0); PLATELET 407 x1000/uL (130-400); RED BLOOD CELL COUNT 4.06 mill/uL (4.2-5.4); RED CELL DISTRIBUTION WIDTH 18.5 % (11.6-14.6)
[2017-10-14 01:58] LABS: CHLORIDE 107 mEq/L (98-107)
[2017-10-14 02:04] LABS: HCG SCREEN NEGATIVE
[2017-10-14 02:08] LABS: B-HCG QUANTITATIVE < 1 mIU/mL (<3)
[2017-10-14] MEDS ORDERED: KETOROLAC 60MG/2ML VIAL IM ONE (03:15)
[2017-10-14] MEDS ORDERED: DIPHENHYDRAMINE 25MG CAPSULE PO ONE (03:15)
[2017-10-14 04:01] VITALS: BP 174/101
[2017-11-04] MEDS ORDERED: OXYC15TA88 PO (12:54)
== END 2017-10-14 04:55 | disposition home or self-care (01) ==
LOC: ER 00:45
DX: R10.2 Pelvic and perineal pain (principal); N93.9 Abnormal uterine and vaginal bleeding, unspecified; I10 Essential (primary) hypertension; J45.909 Unspecified asthma, uncomplicated; D57.1 Sickle-cell disease without crisis; Z88.0 Allergy status to penicillin; Z98.890 Other specified postprocedural states; Z90.49 Acquired absence of other specified parts of digestive tract; Z88.6 Allergy status to analgesic agent
CPT/HCPCS: 36415; 76856; 80053; 84702; 84703; 85025; 96372; 99285; J1885; J7030; Q0163

== ENCOUNTER 2017-10-21 09:56 | Emergency (ER) | payer MEDICAID ==
[~2017-10-21] VITALS: Ht 167.6 cm; Wt 64.0 kg
[2017-10-21] MEDS ORDERED: ONDANSETRON HCL 4MG/2ML VIAL IV STA ×2 (10:55→13:02)
[2017-10-21] MEDS ORDERED: MORPHINE SULFATE 4 MG/ML CPJ (NOT FOR IM USE) IV STA ×2 (10:55→13:02)
[2017-10-21] MEDS ORDERED: SODIUM CHLORIDE 0.9% 1,000 ML IV ONE (10:55)
[2017-10-21 11:40] LABS: BASOPHILS % 0.4 % (0.0-2.0); HEMATOCRIT. 40.1 % (36.0-48.0); HEMOGLOBIN. 13.2 g/dL (12.0-16.0); LYMPHOCYTES % 10.2 % (20.0-50.0); MEAN CORPUSCULAR HEMOGLOBIN 30.5 pg (28.0-32.0); MEAN CORPUSCULAR VOLUME 92.7 fL (81.0-99.0); MONOCYTES % 5.8 % (2.0-8.0); NEUTROPHILS % 82.6 % (40.0-76.0); RED BLOOD CELL COUNT 4.33 mill/uL (4.2-5.4); RED CELL DISTRIBUTION WIDTH 18.8 % (11.6-14.6)
[2017-10-21 11:56] LABS: CARBON DIOXIDE 29 mEq/L (21-32); CHLORIDE 99 mEq/L (98-107)
[2017-10-21] MEDS ORDERED: DIPHENHYDRAMINE 50MG/ML VIAL IV ONE ×2 (12:00→13:15)
[2017-10-21 12:51] LABS: CLARITY URINE CLEAR (CLEAR); COLOR URINE YELLOW (YELLOW); KETONES URINE 1+ (NEGATIVE); LEUKOCYTE ESTERASE URINE NEGATIVE (NEGATIVE); NITRITE URINE NEGATIVE (NEGATIVE); OCCULT BLOOD URINE NEGATIVE (NEGATIVE); PROTEIN URINE TRACE (NEGATIVE); SPECIFIC GRAVITY URINE 1.044 (1.005-1.030); UROBILINOGEN URINE 0.2 E.U./dL (0.2-1.0)
[2017-10-21 13:02] LABS: INR 1.1; PROTHROMBIN TIME 11.4 sec (9.4-11.6)
[2017-10-21 14:36] VITALS: BP 166/94
== END 2017-10-21 14:30 | disposition home or self-care (01) ==
LOC: ER 10:02
DX: R10.11 Right upper quadrant pain (principal); R11.2 Nausea with vomiting, unspecified; I10 Essential (primary) hypertension; J45.909 Unspecified asthma, uncomplicated; Z88.0 Allergy status to penicillin; Z87.19 Personal history of other diseases of the digestive system
CPT/HCPCS: 36415; 76705; 80053; 81001; 83690; 85025; 85610; 96361; 96374; 96375; 96376; 99285; J1200; J2270; J2405; J7030; Z7610

== ENCOUNTER 2017-10-21 15:39 | Emergency (ER) | payer MEDICAID | END 2017-10-21 18:51 | disposition left against medical advice (07) | LOC: ER 15:39 | DX: R11.2 Nausea with vomiting, unspecified (principal); Z53.21 Procedure and treatment not carried out due to patient leaving prior to being seen by health care provider ==

== ENCOUNTER 2017-12-03 11:16 | Emergency (ER) | payer MEDICAID ==
[~2017-12-03] VITALS: Ht 167.6 cm; Wt 68.0 kg
[~2017-12-03 11:16] MED LIST changes: -LORA0.5T2 PO; +OXYC15TA88 PO
[2017-12-03] MEDS ORDERED: KETOROLAC 60MG/2ML VIAL IM ONE (13:00)
[2017-12-03] MEDS ORDERED: LORAZEPAM 2MG/ML CPJ IM ONE (13:00)
[2017-12-03 13:31] LABS: BASOPHILS % 0.4 % (0.0-2.0); EOSINOPHILS % 0.3 % (0.0-5.0); HEMATOCRIT. 38.4 % (36.0-48.0); HEMOGLOBIN. 12.5 g/dL (12.0-16.0); LYMPHOCYTES % 20.3 % (20.0-50.0); MEAN CORPUSCULAR HEMOGLOBIN 30.7 pg (28.0-32.0); MEAN CORPUSCULAR VOLUME 94.1 fL (81.0-99.0); RED BLOOD CELL COUNT 4.08 mill/uL (4.2-5.4); RED CELL DISTRIBUTION WIDTH 18.9 % (11.6-14.6)
[2017-12-03 13:38] LABS: CHLORIDE 103 mEq/L (98-107)
[2017-12-03 13:54] LABS: PLATELET 255 x1000/uL (130-400)
[2017-12-03] MEDS ORDERED: ONDANSETRON 4MG ODT PO ONE (15:45)
[2017-12-03 16:17] VITALS: BP 148/93
== END 2017-12-03 16:21 | disposition home or self-care (01) ==
LOC: ER 11:16
DX: G89.4 Chronic pain syndrome (principal); J45.909 Unspecified asthma, uncomplicated; I10 Essential (primary) hypertension; D57.1 Sickle-cell disease without crisis; F41.9 Anxiety disorder, unspecified; Z88.0 Allergy status to penicillin
CPT/HCPCS: 36415; 71045; 80053; 84484; 85025; 93005; 96372; 99285; J1885; J2060; Q0162

== ENCOUNTER 2017-12-06 01:15 | Emergency (ER) | payer MEDICAID ==
[~2017-12-06] VITALS: Ht 162.6 cm; Wt 59.0 kg
[2017-12-06 01:19] VITALS: BP 115/64
[2017-12-06] MEDS ORDERED: ONDANSETRON 4MG ODT PO ONE (02:30)
== END 2017-12-06 04:00 | disposition left against medical advice (07) ==
LOC: ER 01:31
DX: R07.9 Chest pain, unspecified (principal); Z53.21 Procedure and treatment not carried out due to patient leaving prior to being seen by health care provider
CPT/HCPCS: Q0162

== ENCOUNTER 2017-12-12 16:33 | Emergency (ER) | payer MEDICAID ==
[~2017-12-12] VITALS: Ht 165.1 cm; Wt 61.0 kg
[2017-12-12 16:34] VITALS: BP 135/95
== END 2017-12-12 18:26 | disposition home or self-care (01) ==
LOC: ER 16:57
DX: S93.402A Sprain of unspecified ligament of left ankle, initial encounter (principal); F41.9 Anxiety disorder, unspecified; J45.909 Unspecified asthma, uncomplicated; I10 Essential (primary) hypertension; Z88.0 Allergy status to penicillin; Z90.49 Acquired absence of other specified parts of digestive tract; Z88.8 Allergy status to other drugs, medicaments and biological substances; Z88.6 Allergy status to analgesic agent
CPT/HCPCS: 73610; 73630; 99284; Z7610

== ENCOUNTER 2018-01-19 03:48 | Emergency (ER) | payer MEDICAID ==
[~2018-01-19] VITALS: Ht 157.5 cm; Wt 54.0 kg
[2018-01-19] MEDS ORDERED: FAMOTIDINE 20MG/2ML VIAL IV STA (03:54)
[2018-01-19] MEDS ORDERED: MORPHINE SULFATE 4 MG/ML CPJ (NOT FOR IM USE) IV STA (03:54)
[2018-01-19] MEDS ORDERED: SODIUM CHLORIDE 0.9% 1,000 ML IV ONE (03:54)
[2018-01-19] MEDS ORDERED: DIPHENHYDRAMINE 50MG/ML VIAL IV STA (03:54)
[2018-01-19] MEDS ORDERED: ONDANSETRON HCL 4MG/2ML VIAL IV STA (03:54)
[2018-01-19] MEDS ORDERED: MORPHINE SULFATE 10 MG/ML CPJ IM ONE ×2 (05:15→08:15)
[2018-01-19 05:59] LABS: BASOPHILS % 0.5 % (0.0-2.0); EOSINOPHILS % 0.2 % (0.0-5.0); HEMATOCRIT. 35.1 % (36.0-48.0); HEMOGLOBIN. 11.7 g/dL (12.0-16.0); LYMPHOCYTES % 14.3 % (20.0-50.0); MEAN CORPUSCULAR HEMOGLOBIN 31.2 pg (28.0-32.0); MEAN CORPUSCULAR VOLUME 93.4 fL (81.0-99.0); MEAN PLATELET VOLUME 8.1 fl (7.4-10.4); MONOCYTES % 4.6 % (2.0-8.0); NEUTROPHILS % 80.4 % (40.0-76.0); PLATELET 312 x1000/uL (130-400); RED BLOOD CELL COUNT 3.76 mill/uL (4.2-5.4); RED CELL DISTRIBUTION WIDTH 17.7 % (11.6-14.6)
[2018-01-19 06:04] LABS: PROTHROMBIN TIME 10.9 sec (9.4-11.6)
[2018-01-19 06:05] LABS: CHLORIDE 105 mEq/L (98-107); HCG SCREEN NEGATIVE
[2018-01-19 06:09] LABS: ETHANOL BLOOD < 10 mg/dL
[2018-01-19] MEDS ORDERED: MAGNESIUM/ALUMINUM HYDROXIDE/SIMETHICONE 30ML UDC PO ONE (06:15)
[2018-01-19] MEDS ORDERED: METOCLOPRAMIDE HCL 10MG/2ML VIAL IV ONE (08:30)
[2018-01-19] MEDS ORDERED: LORAZEPAM 2MG/ML CPJ IM ONE (08:30)
[2018-01-19 13:16] VITALS: BP 158/82
== END 2018-01-19 13:46 | disposition home or self-care (01) ==
LOC: ER 03:48
DX: R10.13 Epigastric pain (principal); K29.70 Gastritis, unspecified, without bleeding; K21.9 Gastro-esophageal reflux disease without esophagitis; I10 Essential (primary) hypertension; D57.1 Sickle-cell disease without crisis; Z90.49 Acquired absence of other specified parts of digestive tract; Z88.6 Allergy status to analgesic agent; Z88.0 Allergy status to penicillin
CPT/HCPCS: 36415; 74176; 80053; 83605; 83690; 84703; 85025; 85044; 85610; 96361; 96372; 96374; 96375; 99285; G0482; J1200; J2060; J2270; J2405; J2765; J3490; J7030; Z7610

== ENCOUNTER 2018-02-02 22:38 | Emergency (ER) | payer MEDICAID ==
[~2018-02-02] VITALS: Ht 162.6 cm; Wt 61.0 kg
[2018-02-02] MEDS ORDERED: SODIUM CHLORIDE 0.9% 1,000 ML IV ONE (23:11)
[2018-02-02] MEDS ORDERED: ONDANSETRON HCL 4MG/2ML VIAL IV ONE (23:30)
[2018-02-02] MEDS ORDERED: MORPHINE SULFATE 2 MG/ML CPJ (NOT FOR IM USE) IV ONE (23:30)
[2018-02-02] MEDS ORDERED: DIPHENHYDRAMINE 50MG/ML VIAL IV ONE (23:30)
[2018-02-03] MEDS ORDERED: MORPHINE SULFATE 4 MG/ML CPJ (NOT FOR IM USE) IV SCH (00:04)
[2018-02-03 01:50] LABS: BASOPHILS % 0.8 % (0.0-2.0); EOSINOPHILS % 1.1 % (0.0-5.0); HEMATOCRIT. 35.1 % (36.0-48.0); HEMOGLOBIN. 11.6 g/dL (12.0-16.0); LYMPHOCYTES % 22.1 % (20.0-50.0); MEAN CORPUSCULAR HEMOGLOBIN 30.4 pg (28.0-32.0); MEAN CORPUSCULAR VOLUME 91.9 fL (81.0-99.0); MONOCYTES % 9.4 % (2.0-8.0); NEUTROPHILS % 66.6 % (40.0-76.0); PLATELET 316 x1000/uL (130-400); RED BLOOD CELL COUNT 3.82 mill/uL (4.2-5.4); RED CELL DISTRIBUTION WIDTH 17.9 % (11.6-14.6)
[2018-02-03 01:58] LABS: CHLORIDE 105 mEq/L (98-107)
[2018-02-03 01:59] LABS: INR 1.1; PARTIAL THROMBOPLASTIN TIME 26.2 sec (23.4-31.0); PROTHROMBIN TIME 10.9 sec (9.4-11.6)
[2018-02-03 02:00] LABS: HCG SCREEN NEGATIVE
[2018-02-03 02:01] LABS: ETHANOL BLOOD < 10 mg/dL
[2018-02-03 04:49] VITALS: BP 129/72
== END 2018-02-03 06:10 | disposition home or self-care (01) ==
LOC: ER 22:44
DX: M79.1 Myalgia (principal); D57.1 Sickle-cell disease without crisis; I10 Essential (primary) hypertension; Z88.0 Allergy status to penicillin; Z88.6 Allergy status to analgesic agent
CPT/HCPCS: 36415; 71045; 80053; 83615; 83690; 84703; 85025; 85044; 85610; 85730; 93005; 96361; 96374; 96375; 99285; G0482; J1200; J2270; J2405; J7030; Z7610

== ENCOUNTER 2018-02-03 06:12 | Emergency (ER) | payer MEDICAID ==
[~2018-02-03] VITALS: Ht 152.4 cm; Wt 66.0 kg
[2018-02-03] MEDS ORDERED: LORAZEPAM 1MG TABLET PO ONE (08:30)
[2018-02-03] MEDS ORDERED: ONDANSETRON 4MG ODT PO ONE (08:30)
[2018-02-03 08:50] VITALS: BP 125/76
== END 2018-02-03 09:29 | disposition home or self-care (01) ==
LOC: ER 07:53
DX: R10.84 Generalized abdominal pain (principal); I10 Essential (primary) hypertension; J45.909 Unspecified asthma, uncomplicated; D57.1 Sickle-cell disease without crisis; F41.9 Anxiety disorder, unspecified; Z98.890 Other specified postprocedural states; Z88.0 Allergy status to penicillin; Z88.6 Allergy status to analgesic agent
CPT/HCPCS: 99283; Q0162

== ENCOUNTER 2018-02-09 04:35 | Emergency (ER) | payer MEDICAID ==
[~2018-02-09] VITALS: Ht 165.1 cm; Wt 73.0 kg
[2018-02-09] MEDS ORDERED: ONDANSETRON HCL 4MG/2ML VIAL IV STA (06:39)
[2018-02-09] MEDS ORDERED: FAMOTIDINE 20MG/2ML VIAL IV ONE (06:45)
[2018-02-09 07:21] LABS: BASOPHILS % 0.4 % (0.0-2.0); EOSINOPHILS % 0.3 % (0.0-5.0); HEMATOCRIT. 36.1 % (36.0-48.0); HEMOGLOBIN. 11.9 g/dL (12.0-16.0); LYMPHOCYTES % 17.3 % (20.0-50.0); MEAN CORPUSCULAR HEMOGLOBIN 30.2 pg (28.0-32.0); MEAN CORPUSCULAR VOLUME 91.1 fL (81.0-99.0); RED BLOOD CELL COUNT 3.96 mill/uL (4.2-5.4); RED CELL DISTRIBUTION WIDTH 18.1 % (11.6-14.6)
[2018-02-09 07:22] LABS: CHLORIDE 102 mEq/L (98-107)
[2018-02-09] MEDS ORDERED: IBUPROFEN 600MG TABLET PO ONE (07:30)
[2018-02-09] MEDS ORDERED: MORPHINE SULFATE 2 MG/ML CPJ (NOT FOR IM USE) IV ONE (08:30)
[2018-02-09] MEDS ORDERED: ONDANSETRON HCL 4MG/2ML VIAL IV ONE (08:30)
[2018-02-09 08:33] LABS: PLATELET 192 x1000/uL (130-400)
[2018-02-09 09:30] VITALS: BP 115/66
== END 2018-02-09 10:19 | disposition home or self-care (01) ==
LOC: ER 04:35
DX: R10.13 Epigastric pain (principal); R11.2 Nausea with vomiting, unspecified; Z76.5 Malingerer [conscious simulation]; I10 Essential (primary) hypertension; D57.1 Sickle-cell disease without crisis; F17.210 Nicotine dependence, cigarettes, uncomplicated; Z87.19 Personal history of other diseases of the digestive system
CPT/HCPCS: 36415; 80053; 83690; 85025; 96374; 96375; 99284; J2270; J2405; J3490; Z7610; J7030

== ENCOUNTER 2018-02-10 21:08 | Emergency (ER) | payer MEDICAID ==
[~2018-02-10] VITALS: Ht 162.6 cm; Wt 67.0 kg
[2018-02-10 21:19] VITALS: BP 146/84
== END 2018-02-10 23:09 | disposition left against medical advice (07) ==
LOC: ER 21:08
DX: Z53.21 Procedure and treatment not carried out due to patient leaving prior to being seen by health care provider (principal)

== ENCOUNTER 2018-03-12 02:54 | Emergency (ER) | payer MEDICAID ==
[~2018-03-12] VITALS: Ht 152.4 cm; Wt 50.3 kg
[2018-03-12] MEDS ORDERED: DIPHENHYDRAMINE 50MG/ML VIAL IM STA (06:47)
[2018-03-12] MEDS ORDERED: MORPHINE SULFATE 10 MG/ML CPJ IM ONE (07:00)
[2018-03-12] MEDS ORDERED: ONDANSETRON HCL 4MG/2ML VIAL IM ONE (07:00)
[2018-03-12 07:11] LABS: BASOPHILS % 0.8 % (0.0-2.0); EOSINOPHILS % 2.7 % (0.0-5.0); HEMOGLOBIN. 12.1 g/dL (12.0-16.0); LYMPHOCYTES % 47.2 % (20.0-50.0); MEAN CORPUSCULAR HEMOGLOBIN 29.6 pg (28.0-32.0); MEAN CORPUSCULAR VOLUME 90.5 fL (81.0-99.0); MEAN PLATELET VOLUME 7.8 fl (7.4-10.4); NEUTROPHILS % 42.3 % (40.0-76.0); PLATELET 380 x1000/uL (130-400); RED BLOOD CELL COUNT 4.09 mill/uL (4.2-5.4); RED CELL DISTRIBUTION WIDTH 19.9 % (11.6-14.6)
[2018-03-12 07:18] LABS: CHLORIDE 101 mEq/L (98-107)
[2018-03-12 07:36] LABS: CLARITY URINE CLEAR (CLEAR); COLOR URINE YELLOW (YELLOW); KETONES URINE NEGATIVE (NEGATIVE); LEUKOCYTE ESTERASE URINE NEGATIVE (NEGATIVE); NITRITE URINE NEGATIVE (NEGATIVE); OCCULT BLOOD URINE NEGATIVE (NEGATIVE); PROTEIN URINE NEGATIVE (NEGATIVE); SPECIFIC GRAVITY URINE 1.014 (1.005-1.030)
[2018-03-12 07:42] LABS: HCG SCREEN NEGATIVE
[2018-03-12 09:50] VITALS: BP 101/78
== END 2018-03-12 09:52 | disposition home or self-care (01) ==
LOC: ER 02:54
DX: M54.5 Low back pain (principal); R10.2 Pelvic and perineal pain; R20.0 Anesthesia of skin; M47.896 Other spondylosis, lumbar region; Z79.899 Other long term (current) drug therapy; Z88.8 Allergy status to other drugs, medicaments and biological substances; Z88.6 Allergy status to analgesic agent; Z88.0 Allergy status to penicillin; F17.210 Nicotine dependence, cigarettes, uncomplicated; R03.0 Elevated blood-pressure reading, without diagnosis of hypertension
CPT/HCPCS: 36415; 72100; 80053; 81003; 81025; 83690; 84703; 85025; 96372; 99285; J1200; J2270; J2405; Z7610

== ENCOUNTER 2018-03-17 14:45 | Emergency (ER) | payer MEDICAID ==
[~2018-03-17] VITALS: Ht 160 cm; Wt 60.0 kg
[2018-03-17] MEDS ORDERED: ONDANSETRON 4MG ODT PO ONE (16:15)
[2018-03-17] MEDS ORDERED: LORAZEPAM 2MG/ML CPJ IM ONE (16:15)
[2018-03-17] MEDS ORDERED: HALOPERIDOL LACTATE 5MG/ML VIAL IM ONE (16:15)
[2018-03-17 17:21] LABS: BASOPHILS % 0.4 % (0.0-2.0); EOSINOPHILS % 0.5 % (0.0-5.0); HEMOGLOBIN. 11.5 g/dL (12.0-16.0); MEAN CORPUSCULAR HEMOGLOBIN 29.6 pg (28.0-32.0); MEAN CORPUSCULAR VOLUME 90.1 fL (81.0-99.0); MEAN PLATELET VOLUME 7.9 fl (7.4-10.4); MONOCYTES % 6.4 % (2.0-8.0); NEUTROPHILS % 75.7 % (40.0-76.0); PLATELET 326 x1000/uL (130-400); RED BLOOD CELL COUNT 3.89 mill/uL (4.2-5.4); RED CELL DISTRIBUTION WIDTH 20.2 % (11.6-14.6)
[2018-03-17 17:25] LABS: CHLORIDE 103 mEq/L (98-107)
[2018-03-17 17:28] LABS: PROTHROMBIN TIME 10.8 sec (9.4-11.6)
[2018-03-17 17:29] LABS: ETHANOL BLOOD < 10 mg/dL
[2018-03-17] MEDS ORDERED: MORPHINE SULFATE 10 MG/ML CPJ IM ONE (19:00)
[2018-03-17] MEDS ORDERED: MORPHINE SULFATE 4 MG/ML CPJ (NOT FOR IM USE) IV NR ×2 (19:45)
[2018-03-17 22:00] VITALS: BP 132/74
== END 2018-03-17 22:30 | disposition home or self-care (01) ==
LOC: ER 14:45
DX: R10.13 Epigastric pain (principal); R11.2 Nausea with vomiting, unspecified; I10 Essential (primary) hypertension; K29.70 Gastritis, unspecified, without bleeding; Z79.899 Other long term (current) drug therapy
CPT/HCPCS: 36415; 80053; 83690; 85025; 85610; 96372; 96374; 99284; G0482; J1630; J2060; J2270; Q0162

== ENCOUNTER 2018-03-18 03:59 | Emergency (ER) | payer MEDICAID ==
[~2018-03-18] VITALS: Ht 160 cm; Wt 62.0 kg
[2018-03-18] MEDS: SODIUM CHLORIDE 0.9% 1,000 ML IV ONE ×2 (07:22→07:30)
[2018-03-18] MEDS: LORAZEPAM 2MG/ML CPJ IV ONE ×2 (07:23→07:30)
[2018-03-18 07:27] LABS: BASOPHILS % 0.3 % (0.0-2.0); EOSINOPHILS % 0.2 % (0.0-5.0); HEMATOCRIT. 37.9 % (36.0-48.0); HEMOGLOBIN. 12.5 g/dL (12.0-16.0); LYMPHOCYTES % 11.8 % (20.0-50.0); MEAN CORPUSCULAR HEMOGLOBIN 29.8 pg (28.0-32.0); MEAN CORPUSCULAR VOLUME 90.3 fL (81.0-99.0); MEAN PLATELET VOLUME 8.1 fl (7.4-10.4); NEUTROPHILS % 82.7 % (40.0-76.0); PLATELET 336 x1000/uL (130-400); RED CELL DISTRIBUTION WIDTH 21.1 % (11.6-14.6)
[2018-03-18 07:33] LABS: CHLORIDE 97 mEq/L (98-107)
[2018-03-18 07:42] LABS: HCG SCREEN NEGATIVE
[2018-03-18 08:15] LABS: COLOR URINE DARK YELLOW (YELLOW)
[2018-03-18 08:16] LABS: CLARITY URINE HAZY (CLEAR); PH URINE 5.5 (4.5-8.0); SPECIFIC GRAVITY URINE 1.035 (1.005-1.030)
[2018-03-18 08:17] LABS: KETONES URINE 2+ (NEGATIVE); LEUKOCYTE ESTERASE URINE 1+ (NEGATIVE); NITRITE URINE NEGATIVE (NEGATIVE); OCCULT BLOOD URINE NEGATIVE (NEGATIVE); PROTEIN URINE 1+ (NEGATIVE)
[2018-03-18] MEDS ORDERED: ONDANSETRON HCL 4MG/2ML VIAL IV STA (08:23)
[2018-03-18] MEDS ORDERED: MORPHINE SULFATE 4 MG/ML CPJ (NOT FOR IM USE) IV STA (08:23)
[2018-03-18] MEDS ORDERED: LEVOFLOXACIN 500MG TABLET PO ONE (08:45)
[2018-03-18 10:51] VITALS: BP 148/83
== END 2018-03-18 10:53 | disposition home or self-care (01) ==
LOC: ER 03:59
DX: N39.0 Urinary tract infection, site not specified (principal); F41.1 Generalized anxiety disorder; J45.909 Unspecified asthma, uncomplicated; I10 Essential (primary) hypertension; I20.9 Angina pectoris, unspecified; M79.605 Pain in left leg; G89.29 Other chronic pain; R40.4 Transient alteration of awareness; Z86.11 Personal history of tuberculosis; Z88.6 Allergy status to analgesic agent; Z88.5 Allergy status to narcotic agent; Z88.0 Allergy status to penicillin
CPT/HCPCS: 36415; 70450; 80053; 81003; 83605; 83690; 84703; 85025; 87086; 93005; 96361; 96374; 96375; 99285; J2060; J2270; J2405; J7030; Z7610

== ENCOUNTER 2018-03-31 15:13 | Emergency (ER) | payer MEDICAID ==
[~2018-03-31] VITALS: Ht 165.1 cm; Wt 71.0 kg
[2018-03-31] MEDS ORDERED: METOCLOPRAMIDE HCL 10MG/2ML VIAL IV ONE (21:00)
[2018-03-31] MEDS ORDERED: FAMOTIDINE 20MG/2ML VIAL IV ONE (21:00)
[2018-03-31] MEDS ORDERED: MORPHINE SULFATE 4 MG/ML CPJ (NOT FOR IM USE) IV ONE (21:00)
[2018-03-31] MEDS ORDERED: DIPHENHYDRAMINE 50MG/ML VIAL IV ONE (21:15)
[2018-03-31 21:46] LABS: BASOPHILS % 0.5 % (0.0-2.0); EOSINOPHILS % 0.7 % (0.0-5.0); HEMATOCRIT. 36.1 % (36.0-48.0); HEMOGLOBIN. 11.9 g/dL (12.0-16.0); MEAN CORPUSCULAR HEMOGLOBIN 30.4 pg (28.0-32.0); MEAN PLATELET VOLUME 7.7 fl (7.4-10.4); MONOCYTES % 6.4 % (2.0-8.0); NEUTROPHILS % 67.4 % (40.0-76.0); PLATELET 350 x1000/uL (130-400); RED BLOOD CELL COUNT 3.92 mill/uL (4.2-5.4); RED CELL DISTRIBUTION WIDTH 21.1 % (11.6-14.6)
[2018-03-31 21:49] LABS: CHLORIDE 103 mEq/L (98-107); HCG SCREEN NEGATIVE
[2018-03-31 21:51] LABS: PROTHROMBIN TIME 10.7 sec (9.4-11.6)
[2018-03-31] MEDS ORDERED: SODIUM CHLORIDE 0.9% 1,000 ML IV NR (22:21)
[2018-03-31] MEDS ORDERED: ASPIRIN 81MG TABLET PO NR (22:30)
[2018-04-01] MEDS ORDERED: VISCOUS LIDOCAINE 2% 15 ML UDC PO ONE (02:45)
[2018-04-01] MEDS ORDERED: MAGNESIUM/ALUMINUM HYDROXIDE/SIMETHICONE 30ML UDC PO ONE (02:45)
[2018-04-01] MEDS ORDERED: DICYCLOMINE 10 MG/5 ML ORAL SYR PO ONE (02:45)
[2018-04-01 04:51] VITALS: BP 128/83
== END 2018-04-01 05:27 | disposition home or self-care (01) ==
LOC: ER 15:24
DX: R10.9 Unspecified abdominal pain (principal); G89.29 Other chronic pain; R07.9 Chest pain, unspecified; I20.9 Angina pectoris, unspecified; J45.909 Unspecified asthma, uncomplicated; I10 Essential (primary) hypertension; F17.200 Nicotine dependence, unspecified, uncomplicated; Z88.6 Allergy status to analgesic agent; Z88.0 Allergy status to penicillin; Z88.8 Allergy status to other drugs, medicaments and biological substances
CPT/HCPCS: 36415; 71045; 74176; 80053; 83690; 83880; 84484; 84703; 85025; 85379; 85610; 93005; 96361; 96374; 96375; 99285; J1200; J2270; J2765; J3490; J7030; Z7610

== ENCOUNTER 2018-04-03 01:55 | Inpatient (IN) | payer MEDICAID ==
[~2018-04-03] VITALS: Ht 162.6 cm; Wt 53.6 kg
[2018-04-03] MEDS ORDERED: ONDANSETRON HCL 4MG/2ML VIAL IV STA (02:15)
[2018-04-03] MEDS ORDERED: MORPHINE SULFATE 4 MG/ML CPJ (NOT FOR IM USE) IV STA (02:15)
[2018-04-03] MEDS ORDERED: DIPHENHYDRAMINE 50MG/ML VIAL IV ONE (02:15)
[2018-04-03 02:54] LABS: BASOPHILS % 0.5 % (0.0-2.0); EOSINOPHILS % 0.3 % (0.0-5.0); HEMATOCRIT. 36.4 % (36.0-48.0); HEMOGLOBIN. 12.1 g/dL (12.0-16.0); LYMPHOCYTES % 14.1 % (20.0-50.0); MEAN CORPUSCULAR HEMOGLOBIN 30.6 pg (28.0-32.0); MEAN CORPUSCULAR VOLUME 91.8 fL (81.0-99.0); MEAN PLATELET VOLUME 7.9 fl (7.4-10.4); MONOCYTES % 5.6 % (2.0-8.0); NEUTROPHILS % 79.5 % (40.0-76.0); PLATELET 340 x1000/uL (130-400); RED BLOOD CELL COUNT 3.97 mill/uL (4.2-5.4); RED CELL DISTRIBUTION WIDTH 22.7 % (11.6-14.6)
[2018-04-03 02:58] LABS: CHLORIDE 102 mEq/L (98-107); PROTHROMBIN TIME 10.7 sec (9.4-11.6)
[2018-04-03 06:10] LABS: PLATELET ESTIMATE NORMAL
[2018-04-03] MEDS ORDERED: ONDANSETRON HCL 4MG/2ML VIAL IV PRN (08:00)
[2018-04-03] MEDS ORDERED: IPRATROPIUM/ALBUTEROL 0.5-3(2.5)MG/3ML NEB INH PRN (08:00)
[2018-04-03] MEDS ORDERED: DOCUSATE SODIUM 100MG CAPSULE PO PRN (08:00)
[2018-04-03] MEDS ORDERED: NITROGLYCERIN 0.4MG TABLET SL SL PRN (08:00)
[2018-04-03] MEDS ORDERED: NA PHOS,M-B/NA PHOS,DI-BA ENEMA 118ML PR PRN (08:00)
[2018-04-03] MEDS ORDERED: KETOROLAC 15MG/ML VIAL IV PRN (08:00)
[2018-04-03] MEDS ORDERED: MAGNESIUM/ALUMINUM HYDROXIDE/SIMETHICONE 30ML UDC PO PRN (08:00)
[2018-04-03] MEDS ORDERED: GUAIFENESIN 200MG/10ML SUGAR FREE UDC PO PRN (08:00)
[2018-04-03] MEDS ORDERED: CLONIDINE 0.1MG TABLET PO PRN (08:00)
[2018-04-03] MEDS: LORAZEPAM 0.5MG TABLET PO PRN ×2 (08:41→14:53)
[2018-04-03 17:18] LABS: CREATINE KINASE 151 IU/L (26-192)
[2018-04-03 17:19] LABS: CREATINE KINASE MB FRACTION 1.3 ng/mL (0.5-3.6)
[2018-04-03 18:00] VITALS: BP 102/68
[2018-04-03] MEDS ORDERED: ACETAMINOPHEN 325MG TABLET PO PRN (18:00)
[2018-04-03 18:34] VITALS: BP 102/68
[2018-04-03 20:00] VITALS: BP 97/66
[2018-04-03] MEDS ORDERED: ENOXAPARIN 40MG/0.4ML SYR SUBCUT SCH (20:00)
[2018-04-03] MEDS: METOPROLOL TARTRATE 25MG TABLET PO SCH (21:00)
[2018-04-03] MEDS: FAMOTIDINE 20MG TABLET PO SCH (21:00)
[2018-04-03] MEDS: SUCRALFATE 1 G/10 ML UDC PO SCH (21:00)
[2018-04-03] MEDS: LISINOPRIL 20MG TABLET PO SCH (21:00)
[2018-04-03] MEDS ORDERED: ZOLPIDEM TARTRATE 5MG TABLET PO PRN (21:00)
[2018-04-04 01:39] VITALS: BP 105/68
[2018-04-04 04:02] VITALS: BP 111/84
[2018-04-04] MEDS: SUCRALFATE 1 G/10 ML UDC PO SCH (07:01)
[2018-04-04] MEDS: METOPROLOL TARTRATE 25MG TABLET PO SCH (08:47)
[2018-04-04] MEDS: LISINOPRIL 20MG TABLET PO SCH (08:48)
[2018-04-04] MEDS: FAMOTIDINE 20MG TABLET PO SCH (08:48)
[2018-04-04] MEDS ORDERED: ASPIRIN 325MG EC TABLET PO SCH (09:00)
[2018-04-04 10:46] VITALS: BP 111/84
== END 2018-04-04 11:29 | disposition home or self-care (01) | DRG 203 ==
LOC: ER 01:55 → 6WST 05:12 → ENRESERV 17:20
PROVIDERS: ADMIT Internal Medicine; ATTEND Internal Medicine
DX: R07.89 Other chest pain (principal); I10 Essential (primary) hypertension; J45.909 Unspecified asthma, uncomplicated; Z88.0 Allergy status to penicillin; Z88.8 Allergy status to other drugs, medicaments and biological substances; Z88.6 Allergy status to analgesic agent; Z79.899 Other long term (current) drug therapy; Z86.11 Personal history of tuberculosis
CPT/HCPCS: 36415; 71045; 80053; 80061; 82550; 82553; 83036; 83690; 83880; 84484; 85025; 85610; 93005; 93970; 96374; 96375; 99285; C1893; J1200; J1650; J2270; J2405; J7030

== ENCOUNTER 2018-04-15 14:28 | Emergency (ER) | payer MEDICAID ==
[~2018-04-15] VITALS: Ht 165.1 cm; Wt 60.0 kg
[2018-04-15] MEDS ORDERED: ONDANSETRON HCL 4MG/2ML VIAL IV STA (14:46)
[2018-04-15] MEDS ORDERED: MAGNESIUM/ALUMINUM HYDROXIDE/SIMETHICONE 30ML UDC PO STA (14:46)
[2018-04-15] MEDS ORDERED: FAMOTIDINE 20MG/2ML VIAL IV STA (14:46)
[2018-04-15] MEDS ORDERED: SODIUM CHLORIDE 0.9% 1,000 ML IV ONE (14:46)
[2018-04-15] MEDS ORDERED: MORPHINE SULFATE 4 MG/ML CPJ (NOT FOR IM USE) IV STA (14:46)
[2018-04-15 15:23] LABS: EOSINOPHILS % 1.1 % (0.0-5.0); HEMATOCRIT. 37.2 % (36.0-48.0); HEMOGLOBIN. 12.2 g/dL (12.0-16.0); LYMPHOCYTES % 34.7 % (20.0-50.0); MEAN CORPUSCULAR HEMOGLOBIN 30.3 pg (28.0-32.0); MEAN CORPUSCULAR VOLUME 92.2 fL (81.0-99.0); MEAN PLATELET VOLUME 8.1 fl (7.4-10.4); MONOCYTES % 7.8 % (2.0-8.0); NEUTROPHILS % 55.4 % (40.0-76.0); PLATELET 385 x1000/uL (130-400); RED BLOOD CELL COUNT 4.04 mill/uL (4.2-5.4); RED CELL DISTRIBUTION WIDTH 22.2 % (11.6-14.6)
[2018-04-15 15:25] LABS: CHLORIDE 104 mEq/L (98-107)
[2018-04-15 15:26] LABS: PROTHROMBIN TIME 10.3 sec (9.4-11.6)
[2018-04-15 15:29] LABS: HCG SCREEN NEGATIVE
[2018-04-15 15:30] LABS: ETHANOL BLOOD < 10 mg/dL
[2018-04-15 15:43] LABS: PLATELET ESTIMATE NORMAL
[2018-04-15] MEDS ORDERED: DIPHENHYDRAMINE 50MG/ML VIAL IV ONE (16:45)
[2018-04-15 18:10] VITALS: BP 117/86
== END 2018-04-15 19:04 | disposition home or self-care (01) ==
LOC: ER 14:28 → CANBEDREQ 04-16 00:25
DX: R10.9 Unspecified abdominal pain (principal); R07.9 Chest pain, unspecified; I10 Essential (primary) hypertension; J45.909 Unspecified asthma, uncomplicated; Z86.11 Personal history of tuberculosis; Z88.6 Allergy status to analgesic agent; Z88.5 Allergy status to narcotic agent; Z88.0 Allergy status to penicillin; Z88.8 Allergy status to other drugs, medicaments and biological substances; Z79.899 Other long term (current) drug therapy
CPT/HCPCS: 36415; 71045; 74018; 80053; 80305; 83690; 83880; 84484; 84703; 85025; 85044; 85610; 93005; 96374; 96375; 99285; G0482; J1200; J2270; J2405; J3490; J7030; Z7610

== ENCOUNTER 2018-04-17 19:59 | Emergency (ER) | payer MEDICAID ==
[~2018-04-17] VITALS: Ht 162.6 cm; Wt 58.0 kg
[2018-04-17 22:31] LABS: BASOPHILS % 0.5 % (0.0-2.0); EOSINOPHILS % 0.2 % (0.0-5.0); HEMATOCRIT. 24.1 % (36.0-48.0); HEMOGLOBIN. 7.8 g/dL (12.0-16.0); LYMPHOCYTES % 16.3 % (20.0-50.0); MEAN CORPUSCULAR HEMOGLOBIN 30.2 pg (28.0-32.0); MEAN CORPUSCULAR VOLUME 93.8 fL (81.0-99.0); MEAN PLATELET VOLUME 8.3 fl (7.4-10.4); MONOCYTES % 5.8 % (2.0-8.0); NEUTROPHILS % 77.2 % (40.0-76.0); PLATELET 251 x1000/uL (130-400); RED BLOOD CELL COUNT 2.57 mill/uL (4.2-5.4); RED CELL DISTRIBUTION WIDTH 22.4 % (11.6-14.6)
[2018-04-17 22:36] LABS: CHLORIDE 100 mEq/L (98-107)
[2018-04-17 22:39] LABS: INR 1.1; PROTHROMBIN TIME 11.6 sec (9.4-11.6)
[2018-04-17 23:03] LABS: PLATELET ESTIMATE NORMAL
[2018-04-17] MEDS ORDERED: DIAZEPAM 5 MG TABLET PO ONE (23:30)
[2018-04-18] MEDS ORDERED: MORPHINE SULFATE 4 MG/ML CPJ (NOT FOR IM USE) IV ONE
[2018-04-18] MEDS ORDERED: DIPHENHYDRAMINE 50MG/ML VIAL IV ONE
[2018-04-18 00:25] VITALS: BP 115/70
== END 2018-04-18 00:29 | disposition home or self-care (01) ==
LOC: ER 19:59
DX: R07.9 Chest pain, unspecified (principal); R10.9 Unspecified abdominal pain; I10 Essential (primary) hypertension; F41.9 Anxiety disorder, unspecified; J45.909 Unspecified asthma, uncomplicated; Z88.6 Allergy status to analgesic agent; Z88.5 Allergy status to narcotic agent; Z87.891 Personal history of nicotine dependence; Z88.0 Allergy status to penicillin
CPT/HCPCS: 36415; 71045; 80053; 83880; 84484; 85025; 85610; 93005; 96374; 96375; 99285; J1200; J2270; Z7610

== ENCOUNTER 2018-04-22 08:25 | Emergency (ER) | payer MEDICAID ==
[~2018-04-22] VITALS: Ht 162.6 cm; Wt 56.0 kg
[2018-04-22] MEDS ORDERED: ACETAMINOPHEN WITH CODEINE 300/30MG TABLET PO ONE (10:00)
[2018-04-22 10:03] LABS: BASOPHILS % 1.2 % (0.0-2.0); HEMATOCRIT. 38.6 % (36.0-48.0); HEMOGLOBIN. 12.6 g/dL (12.0-16.0); LYMPHOCYTES % 30.1 % (20.0-50.0); MEAN CORPUSCULAR HEMOGLOBIN 29.9 pg (28.0-32.0); MEAN PLATELET VOLUME 8.1 fl (7.4-10.4); NEUTROPHILS % 61.7 % (40.0-76.0); PLATELET 360 x1000/uL (130-400); RED CELL DISTRIBUTION WIDTH 22.7 % (11.6-14.6)
[2018-04-22 10:06] LABS: CHLORIDE 102 mEq/L (98-107)
[2018-04-22 10:24] LABS: HCG SCREEN NEGATIVE
[2018-04-22 10:27] LABS: PLATELET ESTIMATE NORMAL
[2018-04-22 13:50] VITALS: BP 128/94
== END 2018-04-22 14:17 | disposition home or self-care (01) ==
LOC: ER 08:25
DX: R07.89 Other chest pain (principal); I11.0 Hypertensive heart disease with heart failure; I50.9 Heart failure, unspecified; J45.909 Unspecified asthma, uncomplicated; Z90.10 Acquired absence of unspecified breast and nipple; Z88.6 Allergy status to analgesic agent; Z88.0 Allergy status to penicillin
CPT/HCPCS: 36415; 71045; 80053; 84484; 84703; 85025; 93005; 99285

== ENCOUNTER 2018-05-22 11:58 | Emergency (ER) | payer MEDICAID ==
[~2018-05-22] VITALS: Ht 162.6 cm; Wt 60.0 kg
[2018-05-22 12:03] VITALS: BP 103/58
== END 2018-05-22 13:39 | disposition left against medical advice (07) ==
LOC: ER 13:27
DX: Z53.21 Procedure and treatment not carried out due to patient leaving prior to being seen by health care provider (principal); R07.9 Chest pain, unspecified
CPT/HCPCS: 93005

== ENCOUNTER 2018-05-28 04:41 | Emergency (ER) | payer MEDICAID ==
[~2018-05-28] VITALS: Ht 160 cm; Wt 59.0 kg
[2018-05-28] MEDS ORDERED: MORPHINE SULFATE 4 MG/ML CPJ (NOT FOR IM USE) IV STA (06:29)
[2018-05-28] MEDS ORDERED: SODIUM CHLORIDE 0.9% 1,000 ML IV ONE (06:29)
[2018-05-28 08:29] LABS: BASOPHILS % 1.2 % (0.0-2.0); EOSINOPHILS % 0.5 % (0.0-5.0); HEMATOCRIT. 37.3 % (36.0-48.0); HEMOGLOBIN. 12.2 g/dL (12.0-16.0); LYMPHOCYTES % 19.1 % (20.0-50.0); MEAN CORPUSCULAR HEMOGLOBIN 30.9 pg (28.0-32.0); MEAN CORPUSCULAR VOLUME 94.1 fL (81.0-99.0); NEUTROPHILS % 72.2 % (40.0-76.0); RED BLOOD CELL COUNT 3.96 mill/uL (4.2-5.4); RED CELL DISTRIBUTION WIDTH 21.1 % (11.6-14.6)
[2018-05-28] MEDS ORDERED: MORPHINE SULFATE 4 MG/ML CPJ (NOT FOR IM USE) IV ONE (08:30)
[2018-05-28 08:34] LABS: CHLORIDE 104 mEq/L (98-107)
[2018-05-28 10:49] VITALS: BP 122/71
== END 2018-05-28 10:51 | disposition home or self-care (01) ==
LOC: ER 04:41
DX: K86.1 Other chronic pancreatitis (principal); R05 Cough; I11.0 Hypertensive heart disease with heart failure; I50.9 Heart failure, unspecified; J45.909 Unspecified asthma, uncomplicated; Z88.8 Allergy status to other drugs, medicaments and biological substances; Z88.6 Allergy status to analgesic agent; Z90.10 Acquired absence of unspecified breast and nipple; Z79.899 Other long term (current) drug therapy
CPT/HCPCS: 36415; 71045; 80053; 83690; 85025; 93005; 96361; 96374; 96376; 99285; J2270; J7030; Z7610

== ENCOUNTER 2018-05-30 02:14 | Emergency (ER) | payer MEDICAID ==
[~2018-05-30] VITALS: Ht 162.6 cm; Wt 67.0 kg
[2018-05-30] MEDS ORDERED: ONDANSETRON HCL 4MG/2ML INJ IV STA (03:25)
[2018-05-30] MEDS ORDERED: SODIUM CHLORIDE 0.9% 1,000 ML IV ONE (03:25)
[2018-05-30] MEDS ORDERED: MORPHINE SULFATE 4 MG/ML CPJ (NOT FOR IM USE) IV STA (03:25)
[2018-05-30] MEDS ORDERED: DIPHENHYDRAMINE 50MG/ML VIAL IV ONE (03:30)
[2018-05-30 04:31] LABS: BASOPHILS % 0.9 % (0.0-2.0); EOSINOPHILS % 1.3 % (0.0-5.0); HEMATOCRIT. 36.7 % (36.0-48.0); HEMOGLOBIN. 11.9 g/dL (12.0-16.0); LYMPHOCYTES % 27.6 % (20.0-50.0); MEAN CORPUSCULAR HEMOGLOBIN 30.7 pg (28.0-32.0); MEAN CORPUSCULAR VOLUME 94.7 fL (81.0-99.0); MEAN PLATELET VOLUME 8.2 fl (7.4-10.4); MONOCYTES % 10.7 % (2.0-8.0); NEUTROPHILS % 59.5 % (40.0-76.0); PLATELET 312 x1000/uL (130-400); RED BLOOD CELL COUNT 3.88 mill/uL (4.2-5.4); RED CELL DISTRIBUTION WIDTH 20.8 % (11.6-14.6)
[2018-05-30 04:38] LABS: CHLORIDE 105 mEq/L (98-107); INR 1.1; PROTHROMBIN TIME 10.7 sec (9.1-11.1)
[2018-05-30 04:41] LABS: HCG SCREEN NEGATIVE
[2018-05-30 04:43] LABS: ETHANOL BLOOD < 10 mg/dL
[2018-05-30 06:06] LABS: CLARITY URINE CLEAR (CLEAR); COLOR URINE YELLOW (YELLOW); KETONES URINE 2+ (NEGATIVE); LEUKOCYTE ESTERASE URINE NEGATIVE (NEGATIVE); NITRITE URINE NEGATIVE (NEGATIVE); OCCULT BLOOD URINE NEGATIVE (NEGATIVE); PH URINE 6.5 (4.5-8.0); PROTEIN URINE NEGATIVE (NEGATIVE); SPECIFIC GRAVITY URINE 1.026 (1.005-1.030)
[2018-05-30 06:38] LABS: *AMPHETAMINES SCREEN URINE NEGATIVE (NEGATIVE); *BARBITURATES SCREEN URINE NEGATIVE (NEGATIVE); *COCAINE SCREEN URINE NEGATIVE (NEGATIVE); METHADONE URINE SCREEN NEGATIVE (NEGATIVE)
[2018-05-30 06:39] LABS: PHENCYCLIDINE URINE SCREEN NEGATIVE (NEGATIVE)
[2018-05-30 06:40] LABS: *BENZODIAZEPINES SCREEN URINE PRESUMTIVE POSITIVE (NEGATIVE); CANNABINOID URINE SCREEN PRESUMTIVE POSITIVE (NEGATIVE); OPIATES URINE SCREEN PRESUMTIVE POSITIVE (NEGATIVE)
[2018-05-30] MEDS ORDERED: MORPHINE SULFATE 10 MG/ML CPJ IM ONE (07:00)
[2018-05-30 07:32] VITALS: BP 109/65
== END 2018-05-30 09:20 | disposition home or self-care (01) ==
LOC: ER 02:23
DX: R07.89 Other chest pain (principal); I11.0 Hypertensive heart disease with heart failure; I50.9 Heart failure, unspecified; J45.909 Unspecified asthma, uncomplicated; Z90.10 Acquired absence of unspecified breast and nipple; Z79.899 Other long term (current) drug therapy; Z88.6 Allergy status to analgesic agent; Z88.0 Allergy status to penicillin
CPT/HCPCS: 36415; 71045; 80053; 80305; 81003; 83690; 84484; 84703; 85025; 85610; 93005; 96372; 96374; 96375; 99285; G0482; J1200; J2270; J2405; J7030; Z7610

== ENCOUNTER 2018-05-31 10:08 | Emergency (ER) | payer MEDICAID ==
[~2018-05-31] VITALS: Ht 165.1 cm; Wt 58.0 kg
[2018-05-31] MEDS ORDERED: ONDANSETRON 4MG ODT PO STA (10:40)
[2018-05-31] MEDS ORDERED: MORPHINE SULFATE 4 MG/ML CPJ (NOT FOR IM USE) IV STA (10:40)
[2018-05-31] MEDS ORDERED: DIPHENHYDRAMINE 50MG/ML VIAL IV ONE (10:45)
[2018-05-31] MEDS ORDERED: ALBUTEROL (0.083%) 2.5MG/3ML NEB HHN ONE (11:30)
[2018-05-31 11:35] LABS: BASOPHILS % 0.7 % (0.0-2.0); HEMATOCRIT. 39.8 % (36.0-48.0); HEMOGLOBIN. 13.1 g/dL (12.0-16.0); LYMPHOCYTES % 27.8 % (20.0-50.0); MEAN CORPUSCULAR HEMOGLOBIN 31.1 pg (28.0-32.0); MEAN CORPUSCULAR VOLUME 94.3 fL (81.0-99.0); MEAN PLATELET VOLUME 8.9 fl (7.4-10.4); MONOCYTES % 9.4 % (2.0-8.0); NEUTROPHILS % 61.1 % (40.0-76.0); PLATELET 426 x1000/uL (130-400); RED BLOOD CELL COUNT 4.22 mill/uL (4.2-5.4); RED CELL DISTRIBUTION WIDTH 21.8 % (11.6-14.6)
[2018-05-31 11:37] LABS: CHLORIDE 103 mEq/L (98-107)
[2018-05-31 13:41] VITALS: BP 116/87
== END 2018-05-31 13:43 | disposition home or self-care (01) ==
LOC: ER 10:08
DX: R07.89 Other chest pain (principal); R10.13 Epigastric pain; J45.909 Unspecified asthma, uncomplicated; I11.0 Hypertensive heart disease with heart failure; J44.9 Chronic obstructive pulmonary disease, unspecified; D57.1 Sickle-cell disease without crisis; Z88.0 Allergy status to penicillin; Z88.6 Allergy status to analgesic agent; Z90.10 Acquired absence of unspecified breast and nipple
CPT/HCPCS: 36415; 71045; 80053; 83880; 84484; 85025; 85610; 85660; 93005; 94640; 96374; 96375; 99285; J1200; J2270; J7611; Q0162

== ENCOUNTER 2018-06-17 14:48 | Emergency (ER) | payer MEDICAID ==
[~2018-06-17] VITALS: Ht 152.4 cm; Wt 70.0 kg
[2018-06-17] MEDS ORDERED: IPRATROPIUM BROMIDE (0.02%) 0.5MG/2.5ML NEB HHN STA (15:58)
[2018-06-17] MEDS ORDERED: MORPHINE SULFATE 10 MG/ML CPJ IM ONE (16:00)
[2018-06-17] MEDS ORDERED: ALBUTEROL (0.083%) 2.5MG/3ML NEB HHN SCH (16:00)
[2018-06-17] MEDS ORDERED: ONDANSETRON HCL 4MG/2ML INJ IV ONE (16:15)
[2018-06-17] MEDS ORDERED: LORAZEPAM 2MG/ML CPJ IM ONE (17:15)
[2018-06-17 19:32] LABS: BASOPHILS % 0.4 % (0.0-2.0); EOSINOPHILS % 0.4 % (0.0-5.0); HEMOGLOBIN. 12.6 g/dL (12.0-16.0); LYMPHOCYTES % 19.1 % (20.0-50.0); MEAN CORPUSCULAR HEMOGLOBIN 30.9 pg (28.0-32.0); MEAN CORPUSCULAR VOLUME 95.9 fL (81.0-99.0); MEAN PLATELET VOLUME 7.9 fl (7.4-10.4); MONOCYTES % 4.9 % (2.0-8.0); NEUTROPHILS % 75.2 % (40.0-76.0); PLATELET 342 x1000/uL (130-400); RED BLOOD CELL COUNT 4.07 mill/uL (4.2-5.4); RED CELL DISTRIBUTION WIDTH 20.1 % (11.6-14.6)
[2018-06-17 19:38] LABS: CHLORIDE 104 mEq/L (98-107)
[2018-06-17 19:39] LABS: PARTIAL THROMBOPLASTIN TIME 26.5 sec (23.4-31.0); PROTHROMBIN TIME 10.3 sec (9.1-11.1)
[2018-06-17 19:45] LABS: ETHANOL BLOOD < 10 mg/dL
[2018-06-17 19:47] LABS: HCG SCREEN NEGATIVE
[2018-06-17 22:05] LABS: CLARITY URINE CLEAR (CLEAR); COLOR URINE YELLOW (YELLOW); KETONES URINE 1+ (NEGATIVE); LEUKOCYTE ESTERASE URINE NEGATIVE (NEGATIVE); NITRITE URINE NEGATIVE (NEGATIVE); OCCULT BLOOD URINE NEGATIVE (NEGATIVE); PROTEIN URINE NEGATIVE (NEGATIVE); SPECIFIC GRAVITY URINE 1.022 (1.005-1.030); UROBILINOGEN URINE 0.2 E.U./dL (0.2-1.0)
[2018-06-17 22:13] LABS: *AMPHETAMINES SCREEN URINE NEGATIVE (NEGATIVE); *BARBITURATES SCREEN URINE NEGATIVE (NEGATIVE); *COCAINE SCREEN URINE NEGATIVE (NEGATIVE); METHADONE URINE SCREEN NEGATIVE (NEGATIVE)
[2018-06-17 22:14] LABS: PHENCYCLIDINE URINE SCREEN NEGATIVE (NEGATIVE)
[2018-06-17 22:16] LABS: *BENZODIAZEPINES SCREEN URINE PRESUMTIVE POSITIVE (NEGATIVE); CANNABINOID URINE SCREEN PRESUMTIVE POSITIVE (NEGATIVE); OPIATES URINE SCREEN PRESUMTIVE POSITIVE (NEGATIVE)
[2018-06-17] MEDS ORDERED: MORPHINE SULFATE 2 MG/ML CPJ (NOT FOR IM USE) IV ONE (23:00)
[2018-06-17 23:12] VITALS: BP 143/73
== END 2018-06-17 23:15 | disposition home or self-care (01) ==
LOC: ER 14:48
DX: R10.9 Unspecified abdominal pain (principal); R07.9 Chest pain, unspecified; R19.7 Diarrhea, unspecified; F15.10 Other stimulant abuse, uncomplicated; F11.10 Opioid abuse, uncomplicated; F12.10 Cannabis abuse, uncomplicated; Z88.0 Allergy status to penicillin; Z88.6 Allergy status to analgesic agent; Z79.899 Other long term (current) drug therapy
CPT/HCPCS: 36415; 80053; 80305; 81003; 83605; 83690; 83880; 84484; 84703; 85025; 85610; 85730; 87040; 94640; 96372; 96374; 96375; 99284; G0482; J2060; J2270; J2405; J7611; Z7610

== ENCOUNTER 2018-06-17 23:28 | Emergency (ER) | payer MEDICAID ==
[~2018-06-17] VITALS: Ht 152.4 cm; Wt 70.0 kg
[2018-06-18] MEDS ORDERED: MAGNESIUM/ALUMINUM HYDROXIDE/SIMETHICONE 30ML UDC PO ONE (01:00)
[2018-06-18] MEDS ORDERED: GABAPENTIN 300MG CAPSULE PO ONE (01:00)
[2018-06-18] MEDS ORDERED: OMEPRAZOLE 20MG CAPSULE EXTENDED RELEASE PO ONE (01:00)
[2018-06-18] MEDS ORDERED: GENTAMICIN SULF 40MG/ML 2ML VIAL IM ONE (01:15)
[2018-06-18] MEDS ORDERED: DOXYCYCLINE HYCLATE 100MG CAPSULE PO ONE (01:15)
[2018-06-18] MEDS ORDERED: METRONIDAZOLE 500MG TABLET PO ONE (01:15)
[2018-06-18] MEDS ORDERED: CEFTRIAXONE SODIUM 250 MG/VIAL IM ONE (01:15)
[2018-06-18] MEDS ORDERED: GENTAMICIN SULF 40MG/ML 2ML VIAL IM NR ×2 (01:45)
[2018-06-18 02:05] VITALS: BP 154/72
== END 2018-06-18 02:07 | disposition home or self-care (01) ==
LOC: ER 23:45
DX: R10.84 Generalized abdominal pain (principal); A59.9 Trichomoniasis, unspecified; R03.0 Elevated blood-pressure reading, without diagnosis of hypertension; Z88.0 Allergy status to penicillin; Z88.6 Allergy status to analgesic agent; F11.10 Opioid abuse, uncomplicated; Z87.19 Personal history of other diseases of the digestive system
CPT/HCPCS: 81025; 96372; 99284; J1580

== ENCOUNTER 2018-07-29 00:58 | Emergency (ER) | payer MEDICAID ==
[~2018-07-29] VITALS: Ht 162.6 cm; Wt 54.5 kg
[2018-07-29 01:02] VITALS: BP 102/70
== END 2018-07-29 02:50 | disposition left against medical advice (07) ==
LOC: ER 00:58
DX: R10.9 Unspecified abdominal pain (principal); R11.0 Nausea; Z53.21 Procedure and treatment not carried out due to patient leaving prior to being seen by health care provider

== ENCOUNTER 2018-08-02 21:03 | Inpatient (IN) | payer MEDICAID ==
[~2018-08-02] VITALS: Ht 152.4 cm; Wt 51.7 kg
[2018-08-02] MEDS ORDERED: IPRATROPIUM BROMIDE (0.02%) 0.5MG/2.5ML NEB HHN STA (22:12)
[2018-08-02] MEDS ORDERED: ONDANSETRON HCL 4MG/2ML INJ IV STA (22:12)
[2018-08-02] MEDS ORDERED: METHYLPREDNISOLONE SOD SUCC 125 MG/2 ML VIAL IV STA (22:12)
[2018-08-02] MEDS ORDERED: ALBUTEROL (0.083%) 2.5MG/3ML NEB HHN STA (22:12)
[2018-08-02] MEDS ORDERED: SODIUM CHLORIDE 0.9% 1,000 ML IV ONE (22:12)
[2018-08-02] MEDS ORDERED: PANTOPRAZOLE SODIUM 40 MG/VIAL IV ONE (22:15)
[2018-08-02] MEDS ORDERED: MORPHINE SULFATE 4 MG/ML CPJ (NOT FOR IM USE) IV ONE (22:45)
[2018-08-02] MEDS ORDERED: DIPHENHYDRAMINE 50MG/ML VIAL IV ONE (22:45)
[2018-08-03 00:22] LABS: BASOPHILS % 1.1 % (0.0-2.0); EOSINOPHILS % 0.4 % (0.0-5.0); HEMATOCRIT. 42.5 % (36.0-48.0); HEMOGLOBIN. 13.7 g/dL (12.0-16.0); LYMPHOCYTES % 36.5 % (20.0-50.0); MEAN CORPUSCULAR HEMOGLOBIN 31.6 pg (28.0-32.0); MEAN CORPUSCULAR VOLUME 97.9 fL (81.0-99.0); MEAN PLATELET VOLUME 8.4 fl (7.4-10.4); MONOCYTES % 5.8 % (2.0-8.0); NEUTROPHILS % 56.2 % (40.0-76.0); PLATELET 288 x1000/uL (130-400); RED BLOOD CELL COUNT 4.35 mill/uL (4.2-5.4); RED CELL DISTRIBUTION WIDTH 19.8 % (11.6-14.6)
[2018-08-03 00:26] LABS: CLARITY URINE CLEAR (CLEAR); COLOR URINE YELLOW (YELLOW); KETONES URINE NEGATIVE (NEGATIVE); LEUKOCYTE ESTERASE URINE NEGATIVE (NEGATIVE); NITRITE URINE NEGATIVE (NEGATIVE); OCCULT BLOOD URINE NEGATIVE (NEGATIVE); PH URINE 6.5 (4.5-8.0); PROTEIN URINE TRACE (NEGATIVE); SPECIFIC GRAVITY URINE 1.011 (1.005-1.030); UROBILINOGEN URINE 0.2 E.U./dL (0.2-1.0)
[2018-08-03 00:27] LABS: HCG SCREEN NEGATIVE
[2018-08-03 00:29] LABS: CHLORIDE 105 mEq/L (98-107)
[2018-08-03 00:40] LABS: *AMPHETAMINES SCREEN URINE NEGATIVE (NEGATIVE); *BARBITURATES SCREEN URINE NEGATIVE (NEGATIVE); *BENZODIAZEPINES SCREEN URINE NEGATIVE (NEGATIVE); *COCAINE SCREEN URINE NEGATIVE (NEGATIVE)
[2018-08-03 00:41] LABS: METHADONE URINE SCREEN NEGATIVE (NEGATIVE); PHENCYCLIDINE URINE SCREEN NEGATIVE (NEGATIVE)
[2018-08-03 00:46] LABS: CANNABINOID URINE SCREEN PRESUMTIVE POSITIVE (NEGATIVE); OPIATES URINE SCREEN PRESUMTIVE POSITIVE (NEGATIVE)
[2018-08-03 00:52] LABS: INR 1.1; PARTIAL THROMBOPLASTIN TIME 21.9 sec (23.4-31.0); PROTHROMBIN TIME 11.2 sec (9.1-11.1)
[2018-08-03] MEDS ORDERED: DIPHENHYDRAMINE 50MG/ML VIAL IV ONE (03:15)
[2018-08-03] MEDS ORDERED: MORPHINE SULFATE 4 MG/ML CPJ (NOT FOR IM USE) IV ONE (03:15)
[2018-08-03] MEDS ORDERED: POTASSIUM CHLORIDE 20MEQ TABLET SR PO ONE (03:30)
[2018-08-03] MEDS ORDERED: MAGNESIUM/ALUMINUM HYDROXIDE/SIMETHICONE 30ML UDC PO ONE (05:45)
[2018-08-03 08:00] VITALS: BP 111/82
[2018-08-03 08:16] VITALS: BP 111/80
[2018-08-03] MEDS ORDERED: GUAIFENESIN 600MG ER TABLET PO SCH (09:00)
[2018-08-03] MEDS ORDERED: GUAIFENESIN 200MG/10ML SUGAR FREE UDC PO PRN (09:00)
[2018-08-03] MEDS ORDERED: IPRATROPIUM/ALBUTEROL 0.5-3(2.5)MG/3ML NEB HHN SCH (09:00)
[2018-08-03] MEDS ORDERED: ONDANSETRON HCL 4MG/2ML INJ IV PRN ×2 (09:00→18:45)
[2018-08-03] MEDS ORDERED: CLONIDINE 0.1MG TABLET PO PRN (09:00)
[2018-08-03] MEDS ORDERED: ENOXAPARIN 40MG/0.4ML SYR SUBCUT SCH (09:00)
[2018-08-03] MEDS ORDERED: IPRATROPIUM/ALBUTEROL 0.5-3(2.5)MG/3ML NEB INH PRN (09:00)
[2018-08-03] MEDS ORDERED: NITROGLYCERIN 0.4MG TABLET SL SL PRN (09:00)
[2018-08-03] MEDS ORDERED: MAGNESIUM/ALUMINUM HYDROXIDE/SIMETHICONE 30ML UDC PO PRN (09:00)
[2018-08-03] MEDS ORDERED: DOCUSATE SODIUM 100MG CAPSULE PO PRN (09:00)
[2018-08-03] MEDS ORDERED: ACETAMINOPHEN 325MG TABLET PO PRN (09:00)
[2018-08-03] MEDS ORDERED: LORAZEPAM 0.5MG TABLET PO PRN (09:00)
[2018-08-03] MEDS ORDERED: FAMOTIDINE 20MG TABLET PO SCH ×2 (09:00→21:00)
[2018-08-03] MEDS ORDERED: NA PHOS,M-B/NA PHOS,DI-BA ENEMA 118ML PR PRN (09:00)
[2018-08-03] MEDS ORDERED: DIPHENHYDRAMINE 25MG CAPSULE PO PRN (09:30)
[2018-08-03] MEDS ORDERED: LEVOFLOXACIN 500MG PREMIX 100 ML IV SCH (10:00)
[2018-08-03] MEDS: MORPHINE SULFATE 4 MG/ML CPJ (NOT FOR IM USE) IV PRN ×3 (11:44→20:00)
[2018-08-03 12:00] VITALS: BP 120/84
[2018-08-03] MEDS ORDERED: METHYLPREDNISOLONE SOD SUCC 125 MG/2 ML VIAL IV SCH (14:00)
[2018-08-03] MEDS ORDERED: IPRATROPIUM/ALBUTEROL 0.5-3(2.5)MG/3ML NEB HHN PRN (14:30)
[2018-08-03] MEDS: METHYLPREDNISOLONE SOD SUCC 40 MG/ML VIAL IV SCH ×3 (14:30→21:58)
[2018-08-03 16:00] VITALS: BP 94/55
[2018-08-03] MEDS: IPRATROPIUM/ALBUTEROL 0.5-3(2.5)MG/3ML NEB HHN SCH ×2 (16:27→21:54)
[2018-08-03] MEDS: MONTELUKAST SODIUM 10MG TABLET PO SCH (17:25)
[2018-08-03] MEDS: PANTOPRAZOLE SODIUM 40 MG/VIAL IV SCH (18:30)
[2018-08-03 19:09] LABS: HEMATOCRIT 37.5 % (36.0-48.0); HEMOGLOBIN 12.1 g/dL (12.0-16.0)
[2018-08-03] MEDS: GUAIFENESIN 600MG ER TABLET PO SCH (20:00)
[2018-08-03 20:18] VITALS: BP 112/82
[2018-08-03] MEDS ORDERED: ZOLPIDEM TARTRATE 5MG TABLET PO PRN (21:00)
[2018-08-03] MEDS ORDERED: DIPHENHYDRAMINE 50MG/ML VIAL IV PRN (21:00)
[2018-08-04] MEDS: MORPHINE SULFATE 4 MG/ML CPJ (NOT FOR IM USE) IV PRN ×6 (00:01→20:47)
[2018-08-04 00:51] VITALS: BP 130/57
[2018-08-04] MEDS: IPRATROPIUM/ALBUTEROL 0.5-3(2.5)MG/3ML NEB HHN SCH ×6 (01:52→20:18)
[2018-08-04 04:00] VITALS: BP 103/62
[2018-08-04] MEDS: METHYLPREDNISOLONE SOD SUCC 40 MG/ML VIAL IV SCH ×2 (05:55→14:00)
[2018-08-04 08:00] VITALS: BP 122/74
[2018-08-04] MEDS: PANTOPRAZOLE SODIUM 40 MG/VIAL IV SCH ×2 (08:41→17:10)
[2018-08-04] MEDS: GUAIFENESIN 600MG ER TABLET PO SCH ×2 (08:41→20:46)
[2018-08-04] MEDS: DIPHENHYDRAMINE 50MG/ML VIAL IV PRN ×4 (09:13→20:46)
[2018-08-04 12:00] VITALS: BP 109/66
[2018-08-04 16:00] VITALS: BP 126/75
[2018-08-04 16:51] LABS: HEMATOCRIT 37.1 % (36.0-48.0); MEAN CORPUSCULAR HEMOGLOBIN 31.4 pg (28.0-32.0); MEAN CORPUSCULAR VOLUME 97.1 fL (81.0-99.0); PLATELET 276 x1000/uL (130-400); RED BLOOD CELL COUNT 3.82 mill/uL (4.2-5.4); RED CELL DISTRIBUTION WIDTH 19.2 % (11.6-14.6)
[2018-08-04] MEDS: MONTELUKAST SODIUM 10MG TABLET PO SCH (17:10)
[2018-08-04] MEDS: PHENYLEPHRINE/SHK LV/MO/PET,WH RECTAL OINT 28GM PR SCH (17:12)
[2018-08-04] MEDS: AZITHROMYCIN 250 MG TABLET PO SCH (18:02)
[2018-08-04 20:00] VITALS: BP 114/65
[2018-08-05] VITALS (7 sets, daily range): BP systolic 105–133; BP diastolic 57–77
[2018-08-05] MEDS: IPRATROPIUM/ALBUTEROL 0.5-3(2.5)MG/3ML NEB HHN SCH ×6 (00:26→21:39)
[2018-08-05] MEDS: MORPHINE SULFATE 4 MG/ML CPJ (NOT FOR IM USE) IV PRN ×5 (01:18→21:45)
[2018-08-05] MEDS: PHENYLEPHRINE/SHK LV/MO/PET,WH RECTAL OINT 28GM PR SCH ×3 (01:22→17:59)
[2018-08-05] MEDS: DIPHENHYDRAMINE 50MG/ML VIAL IV PRN ×3 (05:41→18:42)
[2018-08-05 07:36] LABS: CHLORIDE 98 mEq/L (98-107)
[2018-08-05 07:45] LABS: BASOPHILS % 0.6 % (0.0-2.0); HEMATOCRIT. 40.6 % (36.0-48.0); HEMOGLOBIN. 13.2 g/dL (12.0-16.0); LYMPHOCYTES % 42.5 % (20.0-50.0); MEAN CORPUSCULAR HEMOGLOBIN 31.5 pg (28.0-32.0); MEAN CORPUSCULAR VOLUME 97.2 fL (81.0-99.0); MEAN PLATELET VOLUME 8.5 fl (7.4-10.4); MONOCYTES % 7.6 % (2.0-8.0); NEUTROPHILS % 48.3 % (40.0-76.0); PLATELET 284 x1000/uL (130-400); RED BLOOD CELL COUNT 4.18 mill/uL (4.2-5.4); RED CELL DISTRIBUTION WIDTH 19.4 % (11.6-14.6)
[2018-08-05] MEDS: GUAIFENESIN 600MG ER TABLET PO SCH ×2 (09:17→21:39)
[2018-08-05] MEDS: DOCUSATE SODIUM 250MG CAPSULE PO SCH (09:17)
[2018-08-05] MEDS: AZITHROMYCIN 250 MG TABLET PO SCH (09:17)
[2018-08-05] MEDS: LORATADINE 10MG TABLET PO SCH (09:18)
[2018-08-05] MEDS: PANTOPRAZOLE SODIUM 40 MG/VIAL IV SCH ×2 (09:18→17:58)
[2018-08-05] MEDS: MONTELUKAST SODIUM 10MG TABLET PO SCH (17:58)
[2018-08-05] MEDS: METHYLPREDNISOLONE SOD SUCC 40 MG/ML VIAL IV SCH (18:42)
[2018-08-06 00:21] VITALS: BP 107/73
[2018-08-06] MEDS: DIPHENHYDRAMINE 50MG/ML VIAL IV PRN ×2 (00:53→08:46)
[2018-08-06] MEDS: METHYLPREDNISOLONE SOD SUCC 40 MG/ML VIAL IV SCH ×2 (00:53→10:57)
[2018-08-06] MEDS: PHENYLEPHRINE/SHK LV/MO/PET,WH RECTAL OINT 28GM PR SCH ×3 (00:56→12:00)
[2018-08-06] MEDS: MORPHINE SULFATE 4 MG/ML CPJ (NOT FOR IM USE) IV PRN ×4 (02:40→10:57)
[2018-08-06] MEDS: IPRATROPIUM/ALBUTEROL 0.5-3(2.5)MG/3ML NEB HHN SCH ×4 (03:05→12:03)
[2018-08-06 04:00] VITALS: BP 107/73
[2018-08-06 08:26] VITALS: BP 125/63
[2018-08-06] MEDS: AZITHROMYCIN 250 MG TABLET PO SCH (08:38)
[2018-08-06] MEDS: LORATADINE 10MG TABLET PO SCH (08:38)
[2018-08-06] MEDS: DOCUSATE SODIUM 250MG CAPSULE PO SCH (08:38)
[2018-08-06] MEDS: PANTOPRAZOLE SODIUM 40 MG/VIAL IV SCH (08:49)
[2018-08-06] MEDS: GUAIFENESIN 600MG ER TABLET PO SCH (08:57)
[2018-08-06 12:08] VITALS: BP 118/74
== END 2018-08-06 13:19 | disposition home or self-care (01) | DRG 241 ==
LOC: ER 21:03 → 6WST 08-03 03:30 → ENRESERV 08-03 07:16
PROVIDERS: ADMIT Internal Medicine; ATTEND Internal Medicine
DX: K25.4 Chronic or unspecified gastric ulcer with hemorrhage (principal); J96.00 Acute respiratory failure, unspecified whether with hypoxia or hypercapnia; J44.1 Chronic obstructive pulmonary disease with (acute) exacerbation; D57.1 Sickle-cell disease without crisis; E83.51 Hypocalcemia; J45.901 Unspecified asthma with (acute) exacerbation; I11.0 Hypertensive heart disease with heart failure; I50.9 Heart failure, unspecified; E87.6 Hypokalemia; F12.10 Cannabis abuse, uncomplicated; Z76.5 Malingerer [conscious simulation]; K57.90 Diverticulosis of intestine, part unspecified, without perforation or abscess without bleeding; F17.210 Nicotine dependence, cigarettes, uncomplicated; G89.29 Other chronic pain; K64.9 Unspecified hemorrhoids; Z87.11 Personal history of peptic ulcer disease; Z87.442 Personal history of urinary calculi; Z90.49 Acquired absence of other specified parts of digestive tract; F41.9 Anxiety disorder, unspecified; Z98.891 History of uterine scar from previous surgery; Z88.0 Allergy status to penicillin; Z88.9 Allergy status to unspecified drugs, medicaments and biological substances; K20.9 Esophagitis, unspecified; K29.71 Gastritis, unspecified, with bleeding; K76.89 Other specified diseases of liver
CPT/HCPCS: 36415; 71045; 74018; 74176; 76700; 80048; 80305; 82962; 83036; 83880; 84484; 84703; 85014; 85018; 85027; 86850; 86900; 87804; 93005; 94640; 94644; 96361; 96374; 96375; 96376; 99285; C1893; C9113; J1200; J1650; J1956; J2270; J2405; J2920; J2930; J7030; J7050; J7611; J7620; Q0163

== ENCOUNTER 2018-09-09 21:42 | Emergency (ER) | payer MEDICAID ==
[~2018-09-09] VITALS: Ht 152.4 cm; Wt 59.0 kg
[~2018-09-09 21:42] MED LIST changes: -CARI350T27 PO; -HYDR12.54 PO; -HYDR8TAB43 PO; -OXYC-23 PO
[2018-09-10] MEDS ORDERED: SODIUM CHLORIDE 0.9% 1,000 ML IV ONE (00:08)
[2018-09-10] MEDS ORDERED: FAMOTIDINE 20MG/2ML VIAL IV STA (00:08)
[2018-09-10] MEDS ORDERED: ONDANSETRON HCL 4MG/2ML INJ IV STA (00:08)
[2018-09-10] MEDS ORDERED: MORPHINE SULFATE 4 MG/ML CPJ (NOT FOR IM USE) IV STA (00:08)
[2018-09-10] MEDS ORDERED: IPRATROPIUM BROMIDE (0.02%) 0.5MG/2.5ML NEB HHN STA (00:16)
[2018-09-10] MEDS ORDERED: ALBUTEROL (0.083%) 2.5MG/3ML NEB HHN STA (00:16)
[2018-09-10] MEDS ORDERED: DIPHENHYDRAMINE 25MG CAPSULE PO ONE (00:30)
[2018-09-10] MEDS ORDERED: MORPHINE SULFATE 10 MG/ML CPJ IV NR (00:30)
[2018-09-10 01:47] LABS: HCG SCREEN NEGATIVE
[2018-09-10 02:03] LABS: BASOPHILS % 0.5 % (0.0-2.0); EOSINOPHILS % 0.1 % (0.0-5.0); HEMATOCRIT. 42.8 % (36.0-48.0); LYMPHOCYTES % 14.2 % (20.0-50.0); MEAN CORPUSCULAR HEMOGLOBIN 32.1 pg (28.0-32.0); MEAN CORPUSCULAR VOLUME 98.2 fL (81.0-99.0); MONOCYTES % 4.7 % (2.0-8.0); NEUTROPHILS % 80.5 % (40.0-76.0); PLATELET 314 x1000/uL (130-400); RED BLOOD CELL COUNT 4.36 mill/uL (4.2-5.4)
[2018-09-10 02:11] LABS: CHLORIDE 102 mEq/L (98-107)
[2018-09-10] MEDS ORDERED: LORAZEPAM 2MG/ML CPJ IV ONE (03:15)
[2018-09-10 04:14] LABS: CLARITY URINE CLEAR (CLEAR); COLOR URINE YELLOW (YELLOW); KETONES URINE NEGATIVE (NEGATIVE); LEUKOCYTE ESTERASE URINE NEGATIVE (NEGATIVE); NITRITE URINE NEGATIVE (NEGATIVE); OCCULT BLOOD URINE NEGATIVE (NEGATIVE); PH URINE 5.5 (4.5-8.0); PROTEIN URINE NEGATIVE (NEGATIVE); SPECIFIC GRAVITY URINE 1.007 (1.005-1.030); UROBILINOGEN URINE 0.2 E.U./dL (0.2-1.0)
[2018-09-10 04:21] LABS: METHADONE URINE SCREEN NEGATIVE (NEGATIVE)
[2018-09-10 04:22] LABS: *AMPHETAMINES SCREEN URINE NEGATIVE (NEGATIVE); *BARBITURATES SCREEN URINE NEGATIVE (NEGATIVE); *BENZODIAZEPINES SCREEN URINE NEGATIVE (NEGATIVE); *COCAINE SCREEN URINE NEGATIVE (NEGATIVE); PHENCYCLIDINE URINE SCREEN NEGATIVE (NEGATIVE)
[2018-09-10 04:44] LABS: CANNABINOID URINE SCREEN PRESUMTIVE POSITIVE (NEGATIVE); OPIATES URINE SCREEN PRESUMTIVE POSITIVE (NEGATIVE)
[2018-09-10 06:25] VITALS: BP 123/71
== END 2018-09-10 06:50 | disposition home or self-care (01) ==
LOC: ER 21:42
DX: R10.9 Unspecified abdominal pain (principal); R07.89 Other chest pain; F12.10 Cannabis abuse, uncomplicated; Z88.5 Allergy status to narcotic agent; Z88.6 Allergy status to analgesic agent; Z88.8 Allergy status to other drugs, medicaments and biological substances; Z90.89 Acquired absence of other organs; Z98.890 Other specified postprocedural states
CPT/HCPCS: 36415; 71045; 80053; 80305; 81003; 81025; 83690; 83880; 84484; 84703; 85025; 85610; 93005; 94640; 96374; 96375; 99284; J2060; J2270; J2405; J3490; J7030; C1893; J7611; Q0163

== ENCOUNTER 2018-09-20 07:04 | Emergency (ER) | payer MEDICAID ==
[~2018-09-20] VITALS: Ht 162.6 cm; Wt 75.0 kg
[2018-09-20] MEDS ORDERED: LORAZEPAM 2MG/ML CPJ IM STA (07:19)
[2018-09-20] MEDS: HALOPERIDOL LACTATE 5MG/ML VIAL IM ONE ×2 (07:36→08:00)
[2018-09-20 09:34] LABS: BASOPHILS % 3.2 % (0.0-2.0); EOSINOPHILS % 0.8 % (0.0-5.0); HEMATOCRIT. 34.1 % (36.0-48.0); HEMOGLOBIN. 10.7 g/dL (12.0-16.0); LYMPHOCYTES % 16.3 % (20.0-50.0); MEAN CORPUSCULAR HEMOGLOBIN 32.3 pg (28.0-32.0); MEAN CORPUSCULAR VOLUME 102.9 fL (81.0-99.0); MEAN PLATELET VOLUME 7.8 fl (7.4-10.4); MONOCYTES % 5.2 % (2.0-8.0); NEUTROPHILS % 74.5 % (40.0-76.0); PLATELET 102 x1000/uL (130-400); RED BLOOD CELL COUNT 3.31 mill/uL (4.2-5.4); RED CELL DISTRIBUTION WIDTH 19.5 % (11.6-14.6)
[2018-09-20 09:41] LABS: CHLORIDE 105 mEq/L (98-107)
[2018-09-20 10:04] LABS: INR 1.1; PROTHROMBIN TIME 10.7 sec (9.1-11.1)
[2018-09-20 11:20] VITALS: BP 114/76
== END 2018-09-20 11:46 | disposition home or self-care (01) ==
LOC: ER 07:04
DX: R10.84 Generalized abdominal pain (principal); G89.29 Other chronic pain; F41.9 Anxiety disorder, unspecified; J45.909 Unspecified asthma, uncomplicated; I50.9 Heart failure, unspecified; F12.10 Cannabis abuse, uncomplicated; Z88.0 Allergy status to penicillin; Z88.6 Allergy status to analgesic agent; Z90.49 Acquired absence of other specified parts of digestive tract
CPT/HCPCS: 36415; 80053; 83690; 85025; 85610; 96372; 99283; J1630; J2060; 99284

== ENCOUNTER 2018-10-25 04:40 | Emergency (ER) | payer MEDICAID ==
[~2018-10-25] VITALS: Ht 167.6 cm; Wt 69.0 kg
[2018-10-25] MEDS ORDERED: SODIUM CHLORIDE 0.9% 1,000 ML IV ONE (05:01)
[2018-10-25 05:38] LABS: BASOPHILS % 0.8 % (0.0-2.0); EOSINOPHILS % 1.6 % (0.0-5.0); HEMATOCRIT. 42.4 % (36.0-48.0); LYMPHOCYTES % 30.6 % (20.0-50.0); MEAN CORPUSCULAR HEMOGLOBIN 32.5 pg (28.0-32.0); MEAN CORPUSCULAR VOLUME 98.3 fL (81.0-99.0); MEAN PLATELET VOLUME 7.9 fl (7.4-10.4); PLATELET 280 x1000/uL (130-400); RED BLOOD CELL COUNT 4.31 mill/uL (4.2-5.4); RED CELL DISTRIBUTION WIDTH 17.7 % (11.6-14.6)
[2018-10-25 05:47] LABS: CHLORIDE 107 mEq/L (98-107); HCG SCREEN NEGATIVE
[2018-10-25] MEDS ORDERED: HALOPERIDOL LACTATE 5MG/ML VIAL IM ONE ×2 (06:45→11:15)
[2018-10-25] MEDS ORDERED: METOCLOPRAMIDE HCL 10MG/2ML VIAL IV ONE (06:45)
[2018-10-25] MEDS ORDERED: LORAZEPAM 2MG/ML CPJ IV ONE (07:45)
[2018-10-25] MEDS: ACETAMINOPHEN 325MG TABLET PO ONE ×2 (08:08→08:31)
[2018-10-25] MEDS: CLONIDINE 0.1MG TABLET PO ONE ×2 (08:08→08:30)
[2018-10-25 14:00] VITALS: BP 129/78
== END 2018-10-25 15:53 | disposition home or self-care (01) ==
LOC: ER 05:09 → CANBEDREQ 11:03 → ER 15:53
DX: R10.84 Generalized abdominal pain (principal); R07.89 Other chest pain; I10 Essential (primary) hypertension; J45.909 Unspecified asthma, uncomplicated; F99 Mental disorder, not otherwise specified; F12.10 Cannabis abuse, uncomplicated; Z88.6 Allergy status to analgesic agent; Z88.0 Allergy status to penicillin; Z87.19 Personal history of other diseases of the digestive system
CPT/HCPCS: 36415; 71045; 80053; 82962; 83690; 84703; 85025; 94640; 96361; 96372; 96374; 96375; 99284; C1893; J1630; J2060; J2765; J7030; Z7610

== ENCOUNTER 2018-10-25 19:54 | Emergency (ER) | payer MEDICAID ==
[~2018-10-25] VITALS: Ht 162.6 cm; Wt 55.0 kg
[2018-10-25] MEDS ORDERED: MAGNESIUM/ALUMINUM HYDROXIDE/SIMETHICONE 30ML UDC PO STA (20:23)
[2018-10-25] MEDS ORDERED: ACETAMINOPHEN 325MG TABLET PO STA (20:23)
[2018-10-25] MEDS ORDERED: ONDANSETRON 4MG ODT PO STA (20:23)
[2018-10-25 22:04] LABS: BASOPHILS % 0.5 % (0.0-2.0); HEMATOCRIT. 44.1 % (36.0-48.0); HEMOGLOBIN. 14.5 g/dL (12.0-16.0); LYMPHOCYTES % 14.4 % (20.0-50.0); MEAN CORPUSCULAR HEMOGLOBIN 32.7 pg (28.0-32.0); MEAN CORPUSCULAR VOLUME 99.8 fL (81.0-99.0); MEAN PLATELET VOLUME 8.3 fl (7.4-10.4); NEUTROPHILS % 79.1 % (40.0-76.0); PLATELET 259 x1000/uL (130-400); RED BLOOD CELL COUNT 4.42 mill/uL (4.2-5.4); RED CELL DISTRIBUTION WIDTH 17.9 % (11.6-14.6)
[2018-10-25 22:19] LABS: CHLORIDE 102 mEq/L (98-107)
[2018-10-25] MEDS ORDERED: HALOPERIDOL LACTATE 5MG/ML VIAL IM ONE (23:00)
[2018-10-26] MEDS ORDERED: ONDANSETRON 4MG ODT PO ONE (02:00)
[2018-10-26 02:09] VITALS: BP 164/73
== END 2018-10-26 02:30 | disposition home or self-care (01) ==
LOC: ER 19:54
DX: G89.29 Other chronic pain (principal); R10.815 Periumbilic abdominal tenderness; R11.0 Nausea; R19.7 Diarrhea, unspecified; J45.909 Unspecified asthma, uncomplicated; I10 Essential (primary) hypertension; F17.200 Nicotine dependence, unspecified, uncomplicated; Z88.0 Allergy status to penicillin; Z88.6 Allergy status to analgesic agent; Z88.5 Allergy status to narcotic agent; Z79.82 Long term (current) use of aspirin; Z79.899 Other long term (current) drug therapy
CPT/HCPCS: 36415; 80053; 83690; 85025; 96372; 99284; J1630; Q0162; Z7610

== ENCOUNTER 2018-11-19 21:35 | Emergency (ER) | payer MEDICAID ==
[~2018-11-19] VITALS: Ht 167.6 cm; Wt 66.0 kg
[2018-11-20] MEDS ORDERED: ONDANSETRON HCL 4MG/2ML INJ IV STA (04:50)
[2018-11-20] MEDS ORDERED: ONDANSETRON HCL 4MG TABLET PO ONE (05:15)
[2018-11-20 05:29] LABS: BASOPHILS % 0.4 % (0.0-2.0); HEMATOCRIT. 42.5 % (36.0-48.0); HEMOGLOBIN. 14.5 g/dL (12.0-16.0); LYMPHOCYTES % 10.6 % (20.0-50.0); MEAN CORPUSCULAR HEMOGLOBIN 33.6 pg (28.0-32.0); MEAN CORPUSCULAR VOLUME 98.8 fL (81.0-99.0); MEAN PLATELET VOLUME 8.4 fl (7.4-10.4); MONOCYTES % 5.7 % (2.0-8.0); NEUTROPHILS % 83.3 % (40.0-76.0); PLATELET 280 x1000/uL (130-400); RED BLOOD CELL COUNT 4.31 mill/uL (4.2-5.4); RED CELL DISTRIBUTION WIDTH 16.9 % (11.6-14.6)
[2018-11-20 05:34] LABS: PROTHROMBIN TIME 10.3 sec (9.1-11.1)
[2018-11-20 05:38] LABS: CHLORIDE 102 mEq/L (98-107)
[2018-11-20] MEDS ORDERED: MORPHINE SULFATE 4 MG/ML CPJ (NOT FOR IM USE) IV ONE (05:45)
[2018-11-20] MEDS ORDERED: DIPHENHYDRAMINE 50MG/ML VIAL IV ONE (05:45)
[2018-11-20 05:55] LABS: HCG SCREEN NEGATIVE
[2018-11-20 06:24] LABS: CLARITY URINE CLEAR (CLEAR); COLOR URINE YELLOW (YELLOW); KETONES URINE 1+ (NEGATIVE); LEUKOCYTE ESTERASE URINE TRACE (NEGATIVE); NITRITE URINE NEGATIVE (NEGATIVE); OCCULT BLOOD URINE 2+ (NEGATIVE); PH URINE 6.5 (4.5-8.0); PROTEIN URINE TRACE (NEGATIVE); SPECIFIC GRAVITY URINE 1.026 (1.005-1.030)
[2018-11-20 06:34] LABS: *AMPHETAMINES SCREEN URINE NEGATIVE (NEGATIVE); *BARBITURATES SCREEN URINE NEGATIVE (NEGATIVE); METHADONE URINE SCREEN NEGATIVE (NEGATIVE); PHENCYCLIDINE URINE SCREEN NEGATIVE (NEGATIVE)
[2018-11-20 06:35] LABS: *COCAINE SCREEN URINE NEGATIVE (NEGATIVE)
[2018-11-20 06:42] LABS: *BENZODIAZEPINES SCREEN URINE PRESUMTIVE POSITIVE (NEGATIVE); CANNABINOID URINE SCREEN PRESUMTIVE POSITIVE (NEGATIVE); OPIATES URINE SCREEN PRESUMTIVE POSITIVE (NEGATIVE)
[2018-11-20 06:56] VITALS: BP 165/97
== END 2018-11-20 07:14 | disposition home or self-care (01) ==
LOC: ER 21:35
DX: R10.84 Generalized abdominal pain (principal); I11.0 Hypertensive heart disease with heart failure; I50.9 Heart failure, unspecified; D57.1 Sickle-cell disease without crisis; Z88.6 Allergy status to analgesic agent; Z88.0 Allergy status to penicillin; Z88.8 Allergy status to other drugs, medicaments and biological substances
CPT/HCPCS: 36415; 80053; 80305; 81003; 83690; 84703; 85025; 85044; 85610; 96374; 96375; 99283; J1200; J2270; Q0162; Z7610

== ENCOUNTER 2018-11-20 07:45 | Emergency (ER) | payer MEDICAID ==
[~2018-11-20] VITALS: Ht 152.4 cm; Wt 67.0 kg
[2018-11-20 10:11] VITALS: BP 161/119
[2018-11-20] MEDS ORDERED: MAGNESIUM/ALUMINUM HYDROXIDE/SIMETHICONE 30ML UDC PO ONE (11:15)
[2018-11-20] MEDS ORDERED: VISCOUS LIDOCAINE 2% 15 ML UDC MM ONE (11:15)
== END 2018-11-20 11:47 | disposition home or self-care (01) ==
LOC: ER 07:45
DX: G89.29 Other chronic pain (principal); I11.0 Hypertensive heart disease with heart failure; I50.9 Heart failure, unspecified; D57.1 Sickle-cell disease without crisis; Z88.6 Allergy status to analgesic agent; Z88.0 Allergy status to penicillin; Z90.49 Acquired absence of other specified parts of digestive tract
CPT/HCPCS: 99282

== ENCOUNTER 2018-11-20 14:34 | Emergency (ER) | payer MEDICAID ==
[~2018-11-20] VITALS: Ht 152.4 cm; Wt 64.0 kg
[2018-11-20 14:52] VITALS: BP 166/87
== END 2018-11-20 16:39 | disposition left against medical advice (07) ==
LOC: ER 14:34
DX: Z53.21 Procedure and treatment not carried out due to patient leaving prior to being seen by health care provider (principal)

== ENCOUNTER 2018-12-16 00:46 | Emergency (ER) | payer MEDICAID ==
[~2018-12-16] VITALS: Ht 157.5 cm; Wt 54.0 kg
[2018-12-16] MEDS ORDERED: MAGNESIUM/ALUMINUM HYDROXIDE/SIMETHICONE 30ML UDC PO STA (01:31)
[2018-12-16] MEDS ORDERED: METOCLOPRAMIDE HCL 10MG/2ML VIAL IV STA (01:31)
[2018-12-16] MEDS ORDERED: SODIUM CHLORIDE 0.9% 1,000 ML IV ONE (01:31)
[2018-12-16] MEDS ORDERED: VISCOUS LIDOCAINE 2% 15 ML UDC PO STA (01:31)
[2018-12-16 01:47] LABS: CLARITY URINE CLEAR (CLEAR); COLOR URINE YELLOW (YELLOW); KETONES URINE NEGATIVE (NEGATIVE); LEUKOCYTE ESTERASE URINE NEGATIVE (NEGATIVE); NITRITE URINE NEGATIVE (NEGATIVE); OCCULT BLOOD URINE TRACE (NEGATIVE); PROTEIN URINE NEGATIVE (NEGATIVE); SPECIFIC GRAVITY URINE 1.017 (1.005-1.030)
[2018-12-16] MEDS ORDERED: MORPHINE SULFATE 4 MG/ML CPJ (NOT FOR IM USE) IV ONE (02:00)
[2018-12-16] MEDS ORDERED: DIPHENHYDRAMINE 50MG/ML VIAL IV ONE (02:00)
[2018-12-16 02:02] LABS: *AMPHETAMINES SCREEN URINE NEGATIVE (NEGATIVE); *BARBITURATES SCREEN URINE NEGATIVE (NEGATIVE); *COCAINE SCREEN URINE NEGATIVE (NEGATIVE); METHADONE URINE SCREEN NEGATIVE (NEGATIVE); OPIATES URINE SCREEN NEGATIVE (NEGATIVE)
[2018-12-16 02:03] LABS: PHENCYCLIDINE URINE SCREEN NEGATIVE (NEGATIVE)
[2018-12-16 02:12] LABS: *BENZODIAZEPINES SCREEN URINE PRESUMTIVE POSITIVE (NEGATIVE); CANNABINOID URINE SCREEN PRESUMTIVE POSITIVE (NEGATIVE)
[2018-12-16 03:00] VITALS: BP 148/72
[2018-12-16 03:15] LABS: BASOPHILS % 0.8 % (0.0-2.0); EOSINOPHILS % 0.9 % (0.0-5.0); HEMATOCRIT. 40.9 % (36.0-48.0); HEMOGLOBIN. 13.7 g/dL (12.0-16.0); LYMPHOCYTES % 19.3 % (20.0-50.0); MEAN CORPUSCULAR HEMOGLOBIN 33.3 pg (28.0-32.0); MEAN CORPUSCULAR VOLUME 99.3 fL (81.0-99.0); MEAN PLATELET VOLUME 8.2 fl (7.4-10.4); MONOCYTES % 6.4 % (2.0-8.0); NEUTROPHILS % 72.6 % (40.0-76.0); PLATELET 291 x1000/uL (130-400); RED BLOOD CELL COUNT 4.12 mill/uL (4.2-5.4); RED CELL DISTRIBUTION WIDTH 15.6 % (11.6-14.6)
[2018-12-16 03:19] LABS: CHLORIDE 103 mEq/L (98-107)
[2018-12-16 03:20] LABS: PROTHROMBIN TIME 10.2 sec (9.1-11.1)
[2018-12-16 03:22] LABS: ETHANOL BLOOD < 10 mg/dL
== END 2018-12-16 06:51 | disposition home or self-care (01) ==
LOC: ER 00:46
DX: G89.29 Other chronic pain (principal); R10.9 Unspecified abdominal pain; R11.2 Nausea with vomiting, unspecified; I11.0 Hypertensive heart disease with heart failure; I50.9 Heart failure, unspecified; J45.909 Unspecified asthma, uncomplicated; Z90.49 Acquired absence of other specified parts of digestive tract; Z98.890 Other specified postprocedural states; Z88.0 Allergy status to penicillin; Z88.6 Allergy status to analgesic agent; Z88.5 Allergy status to narcotic agent; Z79.899 Other long term (current) drug therapy
CPT/HCPCS: 36415; 80053; 80305; 80320; 81003; 81025; 83690; 85025; 85610; 96361; 96374; 96375; 99283; J1200; J2270; J2765; J7030; Z7610; G0480

== ENCOUNTER 2018-12-16 07:33 | Inpatient (IN) | payer MEDICAID ==
[~2018-12-16] VITALS: Ht 160 cm; Wt 49.9 kg
[2018-12-16] MEDS ORDERED: DICYCLOMINE 10 MG/5 ML ORAL SYR PO STA (09:19)
[2018-12-16] MEDS ORDERED: VISCOUS LIDOCAINE 2% 15 ML UDC PO STA (09:19)
[2018-12-16] MEDS ORDERED: MAGNESIUM/ALUMINUM HYDROXIDE/SIMETHICONE 30ML UDC PO STA (09:19)
[2018-12-16] MEDS ORDERED: ONDANSETRON 4MG ODT PO STA (09:19)
[2018-12-16] MEDS ORDERED: ACETAMINOPHEN 325MG TABLET PO STA (09:19)
[2018-12-16 09:47] LABS: BASOPHILS % 0.4 % (0.0-2.0); EOSINOPHILS % 0.2 % (0.0-5.0); HEMATOCRIT. 39.8 % (36.0-48.0); HEMOGLOBIN. 13.3 g/dL (12.0-16.0); LYMPHOCYTES % 8.8 % (20.0-50.0); MEAN CORPUSCULAR HEMOGLOBIN 33.5 pg (28.0-32.0); MEAN CORPUSCULAR VOLUME 100.1 fL (81.0-99.0); MONOCYTES % 5.7 % (2.0-8.0); NEUTROPHILS % 84.9 % (40.0-76.0); PLATELET 243 x1000/uL (130-400); RED BLOOD CELL COUNT 3.98 mill/uL (4.2-5.4); RED CELL DISTRIBUTION WIDTH 15.5 % (11.6-14.6)
[2018-12-16 09:55] LABS: CHLORIDE 102 mEq/L (98-107)
[2018-12-16 09:56] LABS: INR 1.1; PROTHROMBIN TIME 10.6 sec (9.1-11.1)
[2018-12-16 10:12] LABS: HCG SCREEN NEGATIVE
[2018-12-16] MEDS ORDERED: LORAZEPAM 2MG/ML CPJ IM STA (11:33)
[2018-12-16] MEDS ORDERED: HALOPERIDOL LACTATE 5MG/ML VIAL IM ONE (11:45)
[2018-12-16] MEDS ORDERED: ACETAMINOPHEN 325MG TABLET PO PRN (15:00)
[2018-12-16 15:41] VITALS: BP 148/75
[2018-12-16 16:00] VITALS: BP_SYST 138; BP_SYST 147; BP_DIAS 72; BP_DIAS 85
[2018-12-16] MEDS: SODIUM CHLORIDE 0.9% 1,000 ML IV SCH (16:14)
[2018-12-16 20:00] VITALS: BP 155/87
[2018-12-16] MEDS: ONDANSETRON HCL 4MG/2ML INJ IV PRN (21:07)
[2018-12-16] MEDS: TRAMADOL 50MG TABLET PO PRN (21:08)
[2018-12-17 04:00] VITALS: BP 135/71
[2018-12-17] MEDS ORDERED: OMEPRAZOLE 20MG CAPSULE EXTENDED RELEASE PO SCH (07:20)
[2018-12-17] MEDS: SODIUM CHLORIDE 0.9% 1,000 ML IV SCH (07:53)
[2018-12-17 08:00] VITALS: BP 132/68
[2018-12-17] MEDS ORDERED: DIPHENHYDRAMINE 25MG CAPSULE PO NR (10:41)
[2018-12-17] MEDS: TRAMADOL 50MG TABLET PO PRN (10:55)
[2018-12-17] MEDS: ONDANSETRON HCL 4MG/2ML INJ IV PRN (11:33)
[2018-12-17 12:00] VITALS: BP 136/62
[2018-12-17 12:10] VITALS: BP 121/66
== END 2018-12-17 14:10 | disposition home or self-care (01) | DRG 251 ==
LOC: ER 07:33 → 6EST 11:38 → EDBEDREQ 11:42 → EDBEDREQTM 11:42 → ENRESERV 12:59 → 6EST 14:25
PROVIDERS: ADMIT Family Medicine Adult Medicine; ATTEND Family Medicine Adult Medicine
DX: R10.9 Unspecified abdominal pain (principal); I11.0 Hypertensive heart disease with heart failure; F11.20 Opioid dependence, uncomplicated; I50.9 Heart failure, unspecified; R11.2 Nausea with vomiting, unspecified; G89.29 Other chronic pain; J45.909 Unspecified asthma, uncomplicated; Z90.49 Acquired absence of other specified parts of digestive tract; Z88.0 Allergy status to penicillin; Z88.6 Allergy status to analgesic agent; Z88.8 Allergy status to other drugs, medicaments and biological substances; Z88.5 Allergy status to narcotic agent; Z79.899 Other long term (current) drug therapy; Z98.891 History of uterine scar from previous surgery; Z76.5 Malingerer [conscious simulation]
CPT/HCPCS: 36415; 74176; 84703; 93970; 99285; J1630; J2060; J2405; J7030; Q0162; Q0163

== ENCOUNTER 2018-12-27 00:30 | Emergency (ER) | payer MEDICAID ==
[~2018-12-27] VITALS: Ht 152.4 cm; Wt 59.0 kg
[2018-12-27 00:46] VITALS: BP 155/117
== END 2018-12-27 02:45 | disposition left against medical advice (07) ==
LOC: ER 00:30
DX: Z53.21 Procedure and treatment not carried out due to patient leaving prior to being seen by health care provider (principal); J45.909 Unspecified asthma, uncomplicated; I10 Essential (primary) hypertension; Z88.0 Allergy status to penicillin; Z88.5 Allergy status to narcotic agent; Z88.6 Allergy status to analgesic agent

== ENCOUNTER 2018-12-27 04:29 | Emergency (ER) | payer MEDICAID ==
[~2018-12-27] VITALS: Ht 165.1 cm; Wt 59.0 kg
[2018-12-27] MEDS ORDERED: KETOROLAC 30MG/ML VIAL IV STA (07:35)
[2018-12-27] MEDS ORDERED: SODIUM CHLORIDE 0.9% 1,000 ML IV ONE (07:35)
[2018-12-27] MEDS ORDERED: ONDANSETRON HCL 4MG/2ML INJ IV STA (07:35)
[2018-12-27] MEDS ORDERED: PANTOPRAZOLE SODIUM 40 MG/VIAL IV STA (07:35)
[2018-12-27] MEDS ORDERED: HALOPERIDOL LACTATE 5MG/ML VIAL IM ONE (07:45)
[2018-12-27 08:05] LABS: BASOPHILS % 0.5 % (0.0-2.0); EOSINOPHILS % 0.3 % (0.0-5.0); HEMATOCRIT. 41.8 % (36.0-48.0); LYMPHOCYTES % 19.6 % (20.0-50.0); MEAN CORPUSCULAR HEMOGLOBIN 33.4 pg (28.0-32.0); MEAN CORPUSCULAR VOLUME 99.6 fL (81.0-99.0); NEUTROPHILS % 69.6 % (40.0-76.0); PLATELET 300 x1000/uL (130-400); RED BLOOD CELL COUNT 4.19 mill/uL (4.2-5.4); RED CELL DISTRIBUTION WIDTH 15.4 % (11.6-14.6)
[2018-12-27 08:09] LABS: CHLORIDE 101 mEq/L (98-107)
[2018-12-27 08:14] LABS: ETHANOL BLOOD < 10 mg/dL
[2018-12-27 08:17] LABS: HCG SCREEN NEGATIVE
[2018-12-27 11:15] VITALS: BP 130/88
== END 2018-12-27 11:30 | disposition home or self-care (01) ==
LOC: ER 04:29
DX: R10.9 Unspecified abdominal pain (principal); J45.909 Unspecified asthma, uncomplicated; I11.0 Hypertensive heart disease with heart failure; I50.9 Heart failure, unspecified; F17.200 Nicotine dependence, unspecified, uncomplicated; Z88.0 Allergy status to penicillin; Z88.5 Allergy status to narcotic agent; Z88.6 Allergy status to analgesic agent
CPT/HCPCS: 36415; 74176; 80053; 80320; 83690; 84703; 85025; 96361; 96372; 96374; 96375; 99284; C9113; J1630; J1885; J2405; J7030; G0480

== ENCOUNTER 2019-01-19 19:22 | Inpatient (IN) | payer MEDICAID ==
[~2019-01-19] VITALS: Ht 162.6 cm; Wt 56.7 kg
[2019-01-19] MEDS ORDERED: ONDANSETRON HCL 4MG/2ML INJ IM ONE ×2 (20:30→22:30)
[2019-01-19] MEDS ORDERED: ACETAMINOPHEN 325MG TABLET PO ONE (21:00)
[2019-01-19] MEDS ORDERED: LORAZEPAM 2MG/ML CPJ IM ONE (21:00)
[2019-01-19] MEDS ORDERED: CYCLOBENZAPRINE 10MG TABLET PO ONE (21:00)
[2019-01-19 21:30] LABS: CHLORIDE 101 mEq/L (98-107)
[2019-01-19 21:31] LABS: PROTHROMBIN TIME 10.6 sec (9.6-11.0)
[2019-01-19 21:34] LABS: BASOPHILS % 0.6 % (0.0-2.0); EOSINOPHILS % 0.8 % (0.0-5.0); HEMATOCRIT. 45.5 % (36.0-48.0); HEMOGLOBIN. 15.2 g/dL (12.0-16.0); LYMPHOCYTES % 24.6 % (20.0-50.0); MEAN CORPUSCULAR HEMOGLOBIN 33.7 pg (28.0-32.0); MEAN CORPUSCULAR VOLUME 100.9 fL (81.0-99.0); MEAN PLATELET VOLUME 8.2 fl (7.4-10.4); MONOCYTES % 8.5 % (2.0-8.0); NEUTROPHILS % 65.5 % (40.0-76.0); PLATELET 266 x1000/uL (130-400); RED BLOOD CELL COUNT 4.51 mill/uL (4.2-5.4); RED CELL DISTRIBUTION WIDTH 14.5 % (11.6-14.6)
[2019-01-19 21:38] LABS: CREATINE KINASE 378 IU/L (26-192)
[2019-01-19 21:57] LABS: HCG SCREEN NEGATIVE
[2019-01-19] MEDS ORDERED: HALOPERIDOL LACTATE 5MG/ML VIAL IM ONE (22:45)
[2019-01-20] VITALS (7 sets, daily range): BP systolic 136–177; BP diastolic 69–96
[2019-01-20] MEDS ORDERED: METOCLOPRAMIDE HCL 10MG/2ML VIAL IM ONE (01:45)
[2019-01-20] MEDS ORDERED: MIDAZOLAM HCL 2 MG/2 ML VIAL IM ONE (01:45)
[2019-01-20] MEDS ORDERED: HALOPERIDOL LACTATE 5MG/ML VIAL IM ONE (02:15)
[2019-01-20] MEDS ORDERED: MORPHINE SULFATE 10 MG/ML CPJ IM ONE (02:15)
[2019-01-20 02:52] LABS: BASOPHILS % 0.3 % (0.0-2.0); HEMATOCRIT. 45.9 % (36.0-48.0); HEMOGLOBIN. 15.3 g/dL (12.0-16.0); LYMPHOCYTES % 9.1 % (20.0-50.0); MEAN CORPUSCULAR HEMOGLOBIN 33.7 pg (28.0-32.0); MEAN CORPUSCULAR VOLUME 100.8 fL (81.0-99.0); MEAN PLATELET VOLUME 8.6 fl (7.4-10.4); MONOCYTES % 3.6 % (2.0-8.0); PLATELET 254 x1000/uL (130-400); RED BLOOD CELL COUNT 4.55 mill/uL (4.2-5.4); RED CELL DISTRIBUTION WIDTH 14.9 % (11.6-14.6)
[2019-01-20 03:06] LABS: CREATINE KINASE 790 IU/L (26-192)
[2019-01-20] MEDS ORDERED: VISCOUS LIDOCAINE 2% 15 ML UDC MM STA (03:19)
[2019-01-20] MEDS ORDERED: MAGNESIUM/ALUMINUM HYDROXIDE/SIMETHICONE 30ML UDC PO ONE (03:30)
[2019-01-20] MEDS ORDERED: PANTOPRAZOLE 40MG DR TABLET PO ONE (03:30)
[2019-01-20 04:38] LABS: CREATINE KINASE 904 IU/L (26-192)
[2019-01-20 04:39] LABS: CREATINE KINASE MB FRACTION 6.1 ng/mL (0.5-3.6)
[2019-01-20] MEDS ORDERED: ACETAMINOPHEN 650MG/20.3ML UDC PO PRN (07:15)
[2019-01-20] MEDS ORDERED: HYDROMORPHONE HCL/PF 2MG/ML CPJ IV PRN (08:15)
[2019-01-20] MEDS ORDERED: ONDANSETRON HCL 4MG/2ML INJ IV PRN (08:15)
[2019-01-20] MEDS: SODIUM CHLORIDE 0.9% 1,000 ML IV SCH ×2 (09:13→18:15)
[2019-01-20] MEDS: PANTOPRAZOLE SODIUM 40 MG/VIAL IV ONE (11:30)
[2019-01-20] MEDS: FOLIC ACID 1MG TABLET PO SCH (11:34)
[2019-01-20] MEDS: ENOXAPARIN 40MG/0.4ML SYR SUBCUT SCH (11:34)
[2019-01-20] MEDS: PANTOPRAZOLE SODIUM 40 MG/VIAL IV SCH (11:35)
[2019-01-20] MEDS: HYDROMORPHONE HCL/PF 2MG/ML CPJ IV PRN ×3 (14:01→23:21)
[2019-01-20] MEDS: ONDANSETRON HCL 4MG/2ML INJ IV PRN (23:18)
[2019-01-21] VITALS: BP 153/72
[2019-01-21 00:46] LABS: CLARITY URINE CLEAR (CLEAR); COLOR URINE YELLOW (YELLOW); KETONES URINE 2+ (NEGATIVE); LEUKOCYTE ESTERASE URINE NEGATIVE (NEGATIVE); NITRITE URINE NEGATIVE (NEGATIVE); OCCULT BLOOD URINE NEGATIVE (NEGATIVE); PROTEIN URINE TRACE (NEGATIVE); SPECIFIC GRAVITY URINE 1.026 (1.005-1.030)
[2019-01-21 01:04] LABS: *BARBITURATES SCREEN URINE NEGATIVE (NEGATIVE)
[2019-01-21 01:05] LABS: *COCAINE SCREEN URINE NEGATIVE (NEGATIVE)
[2019-01-21 01:06] LABS: *AMPHETAMINES SCREEN URINE NEGATIVE (NEGATIVE); *BENZODIAZEPINES SCREEN URINE PRESUMTIVE POSITIVE (NEGATIVE); CANNABINOID URINE SCREEN PRESUMTIVE POSITIVE (NEGATIVE); METHADONE URINE SCREEN NEGATIVE (NEGATIVE); OPIATES URINE SCREEN PRESUMTIVE POSITIVE (NEGATIVE); PHENCYCLIDINE URINE SCREEN NEGATIVE (NEGATIVE)
[2019-01-21] MEDS: SODIUM CHLORIDE 0.9% 1,000 ML IV SCH ×3 (02:56→21:11)
[2019-01-21] MEDS: HYDROMORPHONE HCL/PF 2MG/ML CPJ IV PRN ×4 (03:03→17:18)
[2019-01-21 04:00] VITALS: BP 100/72
[2019-01-21] MEDS: PANTOPRAZOLE SODIUM 40 MG/VIAL IV ONE (04:45)
[2019-01-21 07:09] LABS: BASOPHILS % 0.5 % (0.0-2.0); EOSINOPHILS % 0.8 % (0.0-5.0); HEMOGLOBIN. 12.7 g/dL (12.0-16.0); LYMPHOCYTES % 40.3 % (20.0-50.0); MEAN CORPUSCULAR HEMOGLOBIN 33.8 pg (28.0-32.0); MEAN CORPUSCULAR VOLUME 101.2 fL (81.0-99.0); MEAN PLATELET VOLUME 8.4 fl (7.4-10.4); MONOCYTES % 8.5 % (2.0-8.0); NEUTROPHILS % 49.9 % (40.0-76.0); PLATELET 222 x1000/uL (130-400); RED BLOOD CELL COUNT 3.75 mill/uL (4.2-5.4); RED CELL DISTRIBUTION WIDTH 14.7 % (11.6-14.6)
[2019-01-21 07:43] LABS: CHLORIDE 105 mEq/L (98-107)
[2019-01-21 07:50] LABS: CREATINE KINASE 801 IU/L (26-192)
[2019-01-21] MEDS: ONDANSETRON HCL 4MG/2ML INJ IV PRN (07:57)
[2019-01-21 08:00] VITALS: BP 121/69
[2019-01-21] MEDS: FOLIC ACID 1MG TABLET PO SCH (09:01)
[2019-01-21] MEDS: PANTOPRAZOLE SODIUM 40 MG/VIAL IV SCH (09:01)
[2019-01-21] MEDS: ENOXAPARIN 40MG/0.4ML SYR SUBCUT SCH (09:02)
[2019-01-21 11:55] VITALS: BP 123/77
[2019-01-21 15:44] VITALS: BP 147/87
[2019-01-21 20:00] VITALS: BP 135/86
[2019-01-21] MEDS ORDERED: ZOLPIDEM TARTRATE 5MG TABLET PO PRN (20:00)
[2019-01-22] VITALS: BP 155/80
[2019-01-22] MEDS: HYDROMORPHONE HCL/PF 2MG/ML CPJ IV PRN ×2 (01:35→07:04)
[2019-01-22] MEDS: ONDANSETRON HCL 4MG/2ML INJ IV PRN (01:38)
[2019-01-22 04:00] VITALS: BP 146/82
[2019-01-22 06:27] LABS: CREATINE KINASE 571 IU/L (26-192)
[2019-01-22 08:00] VITALS: BP 144/71
[2019-01-22] MEDS: ENOXAPARIN 40MG/0.4ML SYR SUBCUT SCH (09:02)
[2019-01-22] MEDS: PANTOPRAZOLE SODIUM 40 MG/VIAL IV SCH (09:02)
[2019-01-22] MEDS: FOLIC ACID 1MG TABLET PO SCH (09:02)
[2019-01-22] MEDS: SODIUM CHLORIDE 0.9% 1,000 ML IV SCH (09:02)
[2019-01-22 10:09] VITALS: BP 144/71
[2019-01-23] MEDS ORDERED: LACTULOSE 20G/30ML UDC PO PRN (09:00)
[2019-01-23] MEDS ORDERED: DOCUSATE SODIUM 250MG CAPSULE PO PRN (09:00)
== END 2019-01-22 11:50 | disposition home or self-care (01) | DRG 351 ==
LOC: ER 19:22 → 8WST 01-20 03:51 → EDBEDREQ 01-20 04:10 → EDBEDREQTM 01-20 04:10 → ENRESERV 01-20 04:52 → 7WST 01-21 17:00
PROVIDERS: ADMIT Internal Medicine; ATTEND Internal Medicine
PROC: 02HV33Z Insertion of Infusion Device into Superior Vena Cava, Percutaneous Approach (ICD-10-PCS; principal; 2019-01-20)
PROC: B548ZZA Ultrasonography of Superior Vena Cava, Guidance (ICD-10-PCS; 2019-01-20)
PROC: B5181ZA Fluoroscopy of Superior Vena Cava using Low Osmolar Contrast, Guidance (ICD-10-PCS; 2019-01-20)
DX: M62.82 Rhabdomyolysis (principal); I11.0 Hypertensive heart disease with heart failure; D57.1 Sickle-cell disease without crisis; I50.9 Heart failure, unspecified; G89.29 Other chronic pain; Z60.2 Problems related to living alone; J45.909 Unspecified asthma, uncomplicated; Z76.5 Malingerer [conscious simulation]; Z98.891 History of uterine scar from previous surgery; Z88.6 Allergy status to analgesic agent; Z88.0 Allergy status to penicillin; Z88.8 Allergy status to other drugs, medicaments and biological substances; Z79.899 Other long term (current) drug therapy; Z90.49 Acquired absence of other specified parts of digestive tract
CPT/HCPCS: 36415; 36569; 36573; 71045; 74176; 80048; 80305; 82550; 82553; 83880; 84484; 84703; 85044; 85660; 93005; 93970; 96372; 99285; C1725; C1769; C9113; J1170; J1630; J1650; J2060; J2270; J2405; J2765; J7030

== ENCOUNTER 2019-02-09 02:59 | Emergency (ER) | payer MEDICAID ==
[~2019-02-09] VITALS: Ht 165.1 cm; Wt 73.0 kg
[2019-02-09] MEDS ORDERED: HALOPERIDOL LACTATE 5MG/ML VIAL IM NR (05:00)
[2019-02-09] MEDS ORDERED: ACETAMINOPHEN 500MG TABLET PO NR (05:00)
[2019-02-09] MEDS ORDERED: DICYCLOMINE HCL 10MG CAPSULE PO NR (05:00)
[2019-02-09] MEDS ORDERED: ONDANSETRON HCL 4MG/2ML INJ IV NR (05:00)
[2019-02-09] MEDS ORDERED: SODIUM CHLORIDE 0.9% 1,000 ML IV ONE (05:00)
[2019-02-09] MEDS ORDERED: LORAZEPAM 2MG/ML CPJ IV ONE (05:15)
[2019-02-09] MEDS ORDERED: OXYCODONE HCL/ACETAMINOPHEN 5/325MG TABLET PO ONE (06:30)
[2019-02-09 06:35] VITALS: BP 143/111
== END 2019-02-09 07:08 | disposition home or self-care (01) ==
LOC: ER 02:59
DX: R10.0 Acute abdomen (principal)
CPT/HCPCS: 96361; 96374; 96375; 99283; C1893; J1630; J2060; J2405; J7030

== ENCOUNTER 2019-05-04 23:29 | Emergency (ER) | payer MEDICAID ==
[~2019-05-04] VITALS: Ht 152.4 cm; Wt 66.5 kg
[2019-05-05] MEDS ORDERED: ACETAMINOPHEN 325MG TABLET PO ONE (07:00)
[2019-05-05 07:25] VITALS: BP 125/80
== END 2019-05-05 08:08 | disposition home or self-care (01) ==
LOC: ER 23:29
DX: L30.1 Dyshidrosis [pompholyx] (principal); F41.9 Anxiety disorder, unspecified; J45.909 Unspecified asthma, uncomplicated; I11.0 Hypertensive heart disease with heart failure; I50.9 Heart failure, unspecified; F12.10 Cannabis abuse, uncomplicated; Z98.890 Other specified postprocedural states; Z88.0 Allergy status to penicillin; Z88.1 Allergy status to other antibiotic agents; Z88.5 Allergy status to narcotic agent; Z88.6 Allergy status to analgesic agent
CPT/HCPCS: 99283

== ENCOUNTER 2019-05-19 09:31 | Inpatient (IN) | payer MEDICAID ==
[~2019-05-19] VITALS: Ht 162.6 cm; Wt 49.2 kg
[2019-05-19] MEDS ORDERED: MORPHINE SULFATE 4 MG/ML CPJ (NOT FOR IM USE) IV STA (10:27)
[2019-05-19] MEDS ORDERED: ONDANSETRON HCL 4MG/2ML INJ IM ONE (10:30)
[2019-05-19] MEDS ORDERED: MORPHINE SULFATE 4 MG/ML CPJ (NOT FOR IM USE) IV ONE (10:30)
[2019-05-19] MEDS ORDERED: HALOPERIDOL LACTATE 5MG/ML VIAL IM ONE (10:30)
[2019-05-19 11:04] LABS: BASOPHILS % 1.3 % (0.0-2.0); EOSINOPHILS % 0.9 % (0.0-5.0); HEMATOCRIT. 41.9 % (36.0-48.0); HEMOGLOBIN. 14.1 g/dL (12.0-16.0); MEAN CORPUSCULAR HEMOGLOBIN 33.1 pg (28.0-32.0); MEAN CORPUSCULAR VOLUME 98.1 fL (81.0-99.0); MONOCYTES % 5.5 % (2.0-8.0); NEUTROPHILS % 69.3 % (40.0-76.0); PLATELET 340 x1000/uL (130-400); RED BLOOD CELL COUNT 4.27 mill/uL (4.2-5.4); RED CELL DISTRIBUTION WIDTH 14.4 % (11.6-14.6)
[2019-05-19 11:10] LABS: CHLORIDE 103 mEq/L (98-107)
[2019-05-19 11:12] LABS: PROTHROMBIN TIME 10.6 sec (9.6-11.0)
[2019-05-19 11:14] LABS: ETHANOL BLOOD < 10 mg/dL
[2019-05-19 11:24] LABS: HCG SCREEN NEGATIVE
[2019-05-19] MEDS ORDERED: ONDANSETRON HCL 4MG/2ML INJ IV ONE (17:45)
[2019-05-19 18:11] LABS: *AMPHETAMINES SCREEN URINE NEGATIVE (NEGATIVE); *BARBITURATES SCREEN URINE NEGATIVE (NEGATIVE); *COCAINE SCREEN URINE NEGATIVE (NEGATIVE); METHADONE URINE SCREEN NEGATIVE (NEGATIVE); PHENCYCLIDINE URINE SCREEN NEGATIVE (NEGATIVE)
[2019-05-19 18:20] LABS: *BENZODIAZEPINES SCREEN URINE PRESUMTIVE POSITIVE (NEGATIVE)
[2019-05-19 18:21] LABS: CANNABINOID URINE SCREEN PRESUMTIVE POSITIVE (NEGATIVE); OPIATES URINE SCREEN PRESUMTIVE POSITIVE (NEGATIVE)
[2019-05-19 18:26] LABS: CLARITY URINE CLEAR (CLEAR); COLOR URINE YELLOW (YELLOW); KETONES URINE NEGATIVE (NEGATIVE); LEUKOCYTE ESTERASE URINE NEGATIVE (NEGATIVE); NITRITE URINE NEGATIVE (NEGATIVE); OCCULT BLOOD URINE NEGATIVE (NEGATIVE); PH URINE >=9.0 (4.5-8.0); PROTEIN URINE NEGATIVE (NEGATIVE); SPECIFIC GRAVITY URINE 1.017 (1.005-1.030)
[2019-05-19] MEDS: FAMOTIDINE 20MG/2ML VIAL IV SCH (19:16)
[2019-05-19] MEDS ORDERED: IPRATROPIUM/ALBUTEROL 0.5-3(2.5)MG/3ML NEB INH PRN (20:30)
[2019-05-19] MEDS ORDERED: MAGNESIUM/ALUMINUM HYDROXIDE/SIMETHICONE 30ML UDC PO PRN (20:30)
[2019-05-19] MEDS ORDERED: ACETAMINOPHEN 325MG TABLET PO PRN (20:30)
[2019-05-19] MEDS ORDERED: ONDANSETRON HCL 4MG/2ML INJ IV PRN (20:30)
[2019-05-19] MEDS: LORAZEPAM 2MG/ML CPJ IV PRN (20:45)
[2019-05-19] MEDS ORDERED: PROC10TA17 PO (21:48)
[2019-05-19 22:00] VITALS: BP 137/83
[2019-05-19] MEDS ORDERED: HYDRALAZINE 20MG/ML VIAL IV PRN (22:00)
[2019-05-19 22:14] VITALS: BP 137/83
[2019-05-19] MEDS: PANTOPRAZOLE SODIUM 40 MG/VIAL IV SCH (22:39)
[2019-05-19] MEDS: DEXT 5%/0.45% NACL 1000ML 1,000 ML IV SCH (22:39)
[2019-05-19] MEDS: MORPHINE SULFATE 2 MG/ML CPJ (NOT FOR IM USE) IV PRN (22:43)
[2019-05-20] VITALS: BP 135/65
[2019-05-20 04:00] VITALS: BP 143/80
[2019-05-20] MEDS: MORPHINE SULFATE 2 MG/ML CPJ (NOT FOR IM USE) IV PRN ×5 (04:17→21:09)
[2019-05-20 08:00] VITALS: BP 118/67
[2019-05-20] MEDS: LORAZEPAM 2MG/ML CPJ IV PRN ×4 (08:27→23:04)
[2019-05-20] MEDS: PANTOPRAZOLE SODIUM 40 MG/VIAL IV SCH ×2 (09:05→21:14)
[2019-05-20] MEDS: FAMOTIDINE 20MG/2ML VIAL IV SCH (09:06)
[2019-05-20] MEDS: DEXT 5%/0.45% NACL 1000ML 1,000 ML IV SCH (10:23)
[2019-05-20 12:00] VITALS: BP 128/76
[2019-05-20 12:14] LABS: BASOPHILS % 0.7 % (0.0-2.0); EOSINOPHILS % 2.8 % (0.0-5.0); HEMATOCRIT. 35.9 % (36.0-48.0); LYMPHOCYTES % 54.2 % (20.0-50.0); MEAN CORPUSCULAR HEMOGLOBIN 33.1 pg (28.0-32.0); MEAN CORPUSCULAR VOLUME 98.7 fL (81.0-99.0); MEAN PLATELET VOLUME 9.4 fl (7.4-10.4); MONOCYTES % 9.5 % (2.0-8.0); NEUTROPHILS % 32.8 % (40.0-76.0); PLATELET 183 x1000/uL (130-400); RED BLOOD CELL COUNT 3.64 mill/uL (4.2-5.4); RED CELL DISTRIBUTION WIDTH 14.5 % (11.6-14.6)
[2019-05-20 12:19] LABS: CHLORIDE 106 mEq/L (98-107)
[2019-05-20 12:25] LABS: PHOSPHORUS 2.8 mg/dL (2.5-4.9)
[2019-05-20 16:00] VITALS: BP 131/76
[2019-05-20] MEDS ORDERED: MAGNESIUM 2 G PREMIX 50 ML IV SCH (16:00)
[2019-05-20] MEDS ORDERED: POTASSIUM CHLORIDE INJ 40 MEQ in DEXT 5% WATER 250 ML IV SCH (16:00)
[2019-05-20 20:00] VITALS: BP 125/77
[2019-05-20] MEDS: DIPHENHYDRAMINE 50MG/ML VIAL IV PRN (21:14)
[2019-05-21] VITALS: BP 144/72
[2019-05-21] MEDS: DIPHENHYDRAMINE 50MG/ML VIAL IV PRN (01:38)
[2019-05-21] MEDS: MORPHINE SULFATE 2 MG/ML CPJ (NOT FOR IM USE) IV PRN (01:38)
[2019-05-21] MEDS: DEXT 5%/0.45% NACL 1000ML 1,000 ML IV SCH (01:38)
[2019-05-21 04:00] VITALS: BP 120/62
[2019-05-21 07:56] LABS: CHLORIDE 105 mEq/L (98-107)
[2019-05-21 08:01] LABS: PHOSPHORUS 3.1 mg/dL (2.5-4.9)
== END 2019-05-21 08:30 | disposition left against medical advice (07) | DRG 241 ==
LOC: ER 09:31 → 5WST 18:12 → EDBEDREQ 18:34 → EDBEDREQTM 18:34 → ENRESERV 20:40
PROVIDERS: ADMIT Internal Medicine; ATTEND Internal Medicine
DX: K29.70 Gastritis, unspecified, without bleeding (principal); I11.0 Hypertensive heart disease with heart failure; D57.1 Sickle-cell disease without crisis; E87.8 Other disorders of electrolyte and fluid balance, not elsewhere classified; I50.9 Heart failure, unspecified; E87.6 Hypokalemia; F41.1 Generalized anxiety disorder; G89.4 Chronic pain syndrome; J45.909 Unspecified asthma, uncomplicated; Z87.11 Personal history of peptic ulcer disease; Z90.49 Acquired absence of other specified parts of digestive tract; N92.0 Excessive and frequent menstruation with regular cycle; Z88.0 Allergy status to penicillin; Z88.5 Allergy status to narcotic agent; Z88.8 Allergy status to other drugs, medicaments and biological substances; Z98.891 History of uterine scar from previous surgery
CPT/HCPCS: 36415; 71045; 80048; 80305; 80320; 81003; 83735; 84100; 84484; 84703; 93005; 96374; 99285; C1893; C9113; J1200; J1630; J2060; J2270; J2405; J3475; J3480; J3490; J7060; G0480

== ENCOUNTER 2019-06-20 08:55 | Emergency (ER) | payer MEDICAID ==
[~2019-06-20] VITALS: Ht 165.1 cm; Wt 57.0 kg
[~2019-06-20 08:55] MED LIST changes: +PROC10TA17 PO
[2019-06-20] MEDS ORDERED: METOCLOPRAMIDE HCL 10MG/2ML VIAL IV STA (09:55)
[2019-06-20] MEDS ORDERED: MORPHINE SULFATE 4 MG/ML CPJ (NOT FOR IM USE) IV STA (09:55)
[2019-06-20] MEDS ORDERED: DICYCLOMINE HCL 10MG/ML 2ML AMP IM ONE (10:45)
[2019-06-20] MEDS ORDERED: DIPHENHYDRAMINE 50MG/ML VIAL IV ONE (10:45)
[2019-06-20 10:48] LABS: BASOPHILS % 0.6 % (0.0-2.0); EOSINOPHILS % 0.4 % (0.0-5.0); HEMATOCRIT. 44.1 % (36.0-48.0); HEMOGLOBIN. 14.7 g/dL (12.0-16.0); LYMPHOCYTES % 15.3 % (20.0-50.0); MEAN CORPUSCULAR HEMOGLOBIN 32.5 pg (28.0-32.0); MEAN CORPUSCULAR VOLUME 97.1 fL (81.0-99.0); MEAN PLATELET VOLUME 8.2 fl (7.4-10.4); NEUTROPHILS % 76.7 % (40.0-76.0); PLATELET 282 x1000/uL (130-400); RED BLOOD CELL COUNT 4.54 mill/uL (4.2-5.4); RED CELL DISTRIBUTION WIDTH 15.8 % (11.6-14.6)
[2019-06-20] MEDS ORDERED: SUCRALFATE 1G TABLET PO SCH (11:30)
[2019-06-20 12:18] LABS: CHLORIDE 103 mEq/L (98-107)
[2019-06-20] MEDS ORDERED: MORPHINE SULFATE 2 MG/ML CPJ (NOT FOR IM USE) IV ONE ×2 (13:00→13:45)
[2019-06-20] MEDS ORDERED: HYDROCODONE/ACETAMINOPHEN 5/325MG TABLET PO ONE (14:00)
[2019-06-20] MEDS ORDERED: MAGNESIUM/ALUMINUM HYDROXIDE/SIMETHICONE 30ML UDC PO ONE (14:15)
[2019-06-20] MEDS ORDERED: VISCOUS LIDOCAINE 2% 15 ML UDC MM PRN (14:15)
[2019-06-20] MEDS ORDERED: ONDANSETRON 4MG ODT PO ONE (14:30)
[2019-06-20 15:19] VITALS: BP 128/74
== END 2019-06-20 15:25 | disposition home or self-care (01) ==
LOC: ER 10:44
DX: R10.9 Unspecified abdominal pain (principal); J45.909 Unspecified asthma, uncomplicated; I10 Essential (primary) hypertension; D57.1 Sickle-cell disease without crisis; Z88.0 Allergy status to penicillin; Z88.6 Allergy status to analgesic agent
CPT/HCPCS: 36415; 76700; 80053; 83690; 85025; 96372; 96374; 96375; 99284; J0500; J1200; J2270; J2765; Q0162; 81003

== ENCOUNTER 2019-12-26 23:28 | Emergency (ER) | payer MEDICAID ==
[~2019-12-26] VITALS: Ht 160 cm; Wt 59.0 kg
[2019-12-27 00:10] VITALS: BP 189/90
[2019-12-27 00:49] LABS: BASOPHILS % 0.6 % (0.0-2.0); EOSINOPHILS % 0.3 % (0.0-5.0); HEMATOCRIT. 40.4 % (36.0-48.0); HEMOGLOBIN. 13.6 g/dL (12.0-16.0); LYMPHOCYTES % 9.7 % (20.0-50.0); MEAN CORPUSCULAR HEMOGLOBIN 32.5 pg (28.0-32.0); MEAN CORPUSCULAR VOLUME 96.8 fL (81.0-99.0); MEAN PLATELET VOLUME 8.4 fl (7.4-10.4); MONOCYTES % 3.6 % (2.0-8.0); NEUTROPHILS % 85.8 % (40.0-76.0); PLATELET 370 x1000/uL (130-400); RED BLOOD CELL COUNT 4.18 mill/uL (4.2-5.4); RED CELL DISTRIBUTION WIDTH 16.8 % (11.6-14.6)
[2019-12-27 00:55] LABS: CHLORIDE 106 mEq/L (98-107)
[2019-12-27 00:58] LABS: HCG SCREEN NEGATIVE
[2019-12-27 01:06] LABS: PROTHROMBIN TIME 10.9 sec (9.6-11.0)
[2019-12-27 01:11] LABS: COLOR URINE YELLOW (YELLOW); KETONES URINE 2+ (NEGATIVE); LEUKOCYTE ESTERASE URINE NEGATIVE (NEGATIVE); NITRITE URINE NEGATIVE (NEGATIVE); OCCULT BLOOD URINE NEGATIVE (NEGATIVE); PROTEIN URINE NEGATIVE (NEGATIVE); UROBILINOGEN URINE 0.2 E.U./dL (0.2-1.0)
[2019-12-27 01:33] LABS: CLARITY URINE CLEAR (CLEAR)
[2020-01-01] MEDS ORDERED: ONDA4TAB5 MT (09:44)
[2020-01-01] MEDS ORDERED: PANT40TA4 MT (11:16)
[2020-01-01] MEDS ORDERED: ESCI10TA MT (11:16)
== END 2019-12-27 02:02 | disposition home or self-care (01) ==
LOC: ER 23:28
DX: R10.84 Generalized abdominal pain (principal); Z76.5 Malingerer [conscious simulation]; J45.909 Unspecified asthma, uncomplicated; I10 Essential (primary) hypertension; Z88.6 Allergy status to analgesic agent; Z88.0 Allergy status to penicillin; Z88.8 Allergy status to other drugs, medicaments and biological substances
CPT/HCPCS: 36415; 74018; 80053; 81003; 84703; 85025; 99284

== ENCOUNTER 2019-12-30 08:12 | Inpatient (IN) | payer MEDICAID ==
[~2019-12-30] VITALS: Ht 152.4 cm; Wt 57.6 kg
[2019-12-30] MEDS ORDERED: ONDANSETRON HCL 4MG/2ML INJ IV STA (08:25)
[2019-12-30] MEDS ORDERED: FAMOTIDINE 20MG/2ML VIAL IV STA (08:25)
[2019-12-30] MEDS ORDERED: MAGNESIUM/ALUMINUM HYDROXIDE/SIMETHICONE 30ML UDC PO STA (08:25)
[2019-12-30] MEDS ORDERED: METOCLOPRAMIDE HCL 10MG/2ML VIAL IV STA (08:25)
[2019-12-30] MEDS ORDERED: MORPHINE SULFATE 2 MG/ML CPJ (NOT FOR IM USE) IV ONE (09:15)
[2019-12-30 09:26] LABS: CHLORIDE 97 mEq/L (98-107)
[2019-12-30 09:33] LABS: ETHANOL BLOOD < 10 mg/dL
[2019-12-30] MEDS ORDERED: DIPHENHYDRAMINE 50MG/ML VIAL IV ONE (09:45)
[2019-12-30 10:17] LABS: HCG SCREEN NEGATIVE
[2019-12-30 10:22] LABS: BASOPHILS % 0.3 % (0.0-2.0); EOSINOPHILS % 0.1 % (0.0-5.0); HEMATOCRIT. 38.2 % (36.0-48.0); HEMOGLOBIN. 12.8 g/dL (12.0-16.0); LYMPHOCYTES % 16.4 % (20.0-50.0); MEAN CORPUSCULAR HEMOGLOBIN 32.1 pg (28.0-32.0); MEAN CORPUSCULAR VOLUME 95.8 fL (81.0-99.0); MEAN PLATELET VOLUME 8.2 fl (7.4-10.4); MONOCYTES % 7.4 % (2.0-8.0); NEUTROPHILS % 75.8 % (40.0-76.0); RED BLOOD CELL COUNT 3.99 mill/uL (4.2-5.4); RED CELL DISTRIBUTION WIDTH 16.7 % (11.6-14.6)
[2019-12-30 10:24] LABS: PLATELET 368 x1000/uL (130-400)
[2019-12-30] MEDS ORDERED: SODIUM CHLORIDE 0.9% 1,000 ML IV ONE ×2 (11:00→14:15)
[2019-12-30] MEDS ORDERED: ONDANSETRON HCL 4MG/2ML INJ IV ONE (12:15)
[2019-12-30] MEDS ORDERED: IOHEXOL-300 100 ML BOTTLE ONE (15:00)
[2019-12-30] MEDS ORDERED: LORAZEPAM 2MG/ML CPJ IV ONE (15:45)
[2019-12-30] MEDS ORDERED: ONDANSETRON HCL 4MG/2ML INJ IV PRN (16:45)
[2019-12-30] MEDS ORDERED: ACETAMINOPHEN 650MG SUPP PR PRN (16:45)
[2019-12-30] MEDS ORDERED: HYDRALAZINE 20MG/ML VIAL IV PRN (16:45)
[2019-12-30 18:05] LABS: CLARITY URINE CLEAR (CLEAR); COLOR URINE YELLOW (YELLOW); KETONES URINE 1+ (NEGATIVE); LEUKOCYTE ESTERASE URINE NEGATIVE (NEGATIVE); NITRITE URINE NEGATIVE (NEGATIVE); OCCULT BLOOD URINE 1+ (NEGATIVE); PH URINE >=9.0 (4.5-8.0); PROTEIN URINE NEGATIVE (NEGATIVE); SPECIFIC GRAVITY URINE 1.057 (1.005-1.030)
[2019-12-30] MEDS ORDERED: HYDRALAZINE 10 MG in SODIUM CHLORIDE 0.9% 49.5 ML IV PRN (18:15)
[2019-12-30 18:28] LABS: *AMPHETAMINES SCREEN URINE NEGATIVE (NEGATIVE); *BARBITURATES SCREEN URINE NEGATIVE (NEGATIVE); *COCAINE SCREEN URINE NEGATIVE (NEGATIVE)
[2019-12-30 18:29] LABS: METHADONE URINE SCREEN NEGATIVE (NEGATIVE); PHENCYCLIDINE URINE SCREEN NEGATIVE (NEGATIVE)
[2019-12-30 18:32] LABS: *BENZODIAZEPINES SCREEN URINE PRESUMTIVE POSITIVE (NEGATIVE); CANNABINOID URINE SCREEN PRESUMTIVE POSITIVE (NEGATIVE); OPIATES URINE SCREEN PRESUMTIVE POSITIVE (NEGATIVE)
[2019-12-30 20:00] VITALS: BP_SYST 132; BP_SYST 137; BP_DIAS 70
[2019-12-30] MEDS: DEXT 5%/0.45% NACL KCL 10MEQ/L 1,000 ML IV SCH (20:45)
[2019-12-30] MEDS: FAMOTIDINE 20MG/2ML VIAL IV SCH (20:45)
[2019-12-30] MEDS: HEPARIN 5000 UNITS/ML VIAL SUBCUT SCH (21:00)
[2019-12-30] MEDS: KCL 10MEQ/50ML PREMIX 50 ML IV SCH ×2 (21:02→21:03)
[2019-12-31] VITALS: BP 154/81
[2019-12-31] MEDS: LORAZEPAM 2MG/ML CPJ IV PRN ×2 (03:31→13:33)
[2019-12-31 04:00] VITALS: BP 123/71
[2019-12-31] MEDS ORDERED: ONDA4TAB11 PO (04:58)
[2019-12-31] MEDS ORDERED: ALBU6.7H9 INH (04:58)
[2019-12-31] MEDS: METOCLOPRAMIDE HCL 10MG/2ML VIAL IV SCH ×5 (05:02→23:20)
[2019-12-31] MEDS: DEXT 5%/0.45% NACL KCL 10MEQ/L 1,000 ML IV SCH ×2 (07:48→13:59)
[2019-12-31 08:00] VITALS: BP 128/76
[2019-12-31 08:33] LABS: BASOPHILS % 0.9 % (0.0-2.0); EOSINOPHILS % 1.1 % (0.0-5.0); HEMATOCRIT. 38.2 % (36.0-48.0); HEMOGLOBIN. 12.7 g/dL (12.0-16.0); LYMPHOCYTES % 34.1 % (20.0-50.0); MEAN CORPUSCULAR HEMOGLOBIN 31.7 pg (28.0-32.0); MEAN CORPUSCULAR VOLUME 95.5 fL (81.0-99.0); MEAN PLATELET VOLUME 8.3 fl (7.4-10.4); MONOCYTES % 12.7 % (2.0-8.0); NEUTROPHILS % 51.2 % (40.0-76.0); PLATELET 335 x1000/uL (130-400); RED CELL DISTRIBUTION WIDTH 16.5 % (11.6-14.6)
[2019-12-31] MEDS: FAMOTIDINE 20MG/2ML VIAL IV SCH (08:36)
[2019-12-31] MEDS: HEPARIN 5000 UNITS/ML VIAL SUBCUT SCH ×2 (08:36→21:56)
[2019-12-31 08:42] LABS: CHLORIDE 98 mEq/L (98-107)
[2019-12-31 12:00] VITALS: BP 115/74
[2019-12-31] MEDS ORDERED: POTASSIUM CHLORIDE 20MEQ/PACKET PO NR (12:15)
[2019-12-31] MEDS ORDERED: ALBUTEROL 6.7GM HFA INHALER INH SCH (12:15)
[2019-12-31] MEDS ORDERED: ALBUTEROL (0.083%) 2.5MG/3ML NEB HHN PRN (12:30)
[2019-12-31] MEDS ORDERED: PROCHLORPERAZINE MALEATE 10MG TABLET PO SCH (14:00)
[2019-12-31] MEDS ORDERED: LEVOFLOXACIN 500MG PREMIX 100 ML IV SCH (14:00)
[2019-12-31] MEDS ORDERED: PROCHLORPERAZINE MALEATE 10MG TABLET PO PRN (14:00)
[2019-12-31] MEDS ORDERED: KCL 10MEQ/50ML PREMIX 50 ML IV NR (14:00)
[2019-12-31] MEDS ORDERED: PANTOPRAZOLE SODIUM 40 MG/VIAL IV SCH (14:00)
[2019-12-31 16:00] VITALS: BP 106/71
[2019-12-31] MEDS ORDERED: AZITHROMYCIN 500 MG in DEXT 5% WATER 250 ML IV SCH (16:00)
[2019-12-31] MEDS ORDERED: LORAZEPAM 1MG TABLET PO PRN (17:00)
[2019-12-31 20:00] VITALS: BP 119/70
[2019-12-31] MEDS: OMEPRAZOLE 20MG CAPSULE EXTENDED RELEASE PO SCH (21:56)
[2019-12-31] MEDS ORDERED: AZTREONAM 2 GM in DEXT 5% WATER 100 ML IV SCH (23:30)
[2020-01-01] VITALS: BP 110/67
[2020-01-01] MEDS: LORAZEPAM 2MG/ML CPJ IV PRN (02:49)
[2020-01-01 04:00] VITALS: BP 103/71
[2020-01-01] MEDS: OMEPRAZOLE 20MG CAPSULE EXTENDED RELEASE PO SCH (06:24)
[2020-01-01] MEDS: METOCLOPRAMIDE HCL 10MG/2ML VIAL IV SCH (06:25)
[2020-01-01] MEDS: DEXT 5%/0.45% NACL KCL 10MEQ/L 1,000 ML IV SCH (06:30)
[2020-01-01 06:41] LABS: CHLORIDE 103 mEq/L (98-107)
[2020-01-01 07:01] LABS: BASOPHILS % 0.6 % (0.0-2.0); EOSINOPHILS % 0.8 % (0.0-5.0); HEMATOCRIT. 38.2 % (36.0-48.0); HEMOGLOBIN. 12.6 g/dL (12.0-16.0); LYMPHOCYTES % 39.8 % (20.0-50.0); MEAN CORPUSCULAR HEMOGLOBIN 31.8 pg (28.0-32.0); MEAN CORPUSCULAR VOLUME 96.6 fL (81.0-99.0); MEAN PLATELET VOLUME 9.1 fl (7.4-10.4); MONOCYTES % 13.3 % (2.0-8.0); NEUTROPHILS % 45.5 % (40.0-76.0); PLATELET 305 x1000/uL (130-400); RED BLOOD CELL COUNT 3.96 mill/uL (4.2-5.4)
[2020-01-01 08:00] VITALS: BP 94/61
[2020-01-01] MEDS: HEPARIN 5000 UNITS/ML VIAL SUBCUT SCH (08:30)
[2020-01-01] MEDS ORDERED: AZITHROMYCIN 250 MG in DEXT 5% WATER 250 ML IV SCH (09:00)
[2020-01-01] MEDS ORDERED: ONDA4TAB5 MT (09:44)
[2020-01-01 10:01] VITALS: BP 94/61
[2020-01-01] MEDS ORDERED: PANT40TA4 MT (11:16)
[2020-01-01] MEDS ORDERED: ESCI10TA MT (11:16)
[2020-01-01 12:00] VITALS: BP 96/60
== END 2020-01-01 12:15 | disposition home or self-care (01) | DRG 249 ==
LOC: ER 08:12 → 6EST 16:35 → EDBEDREQ 16:49 → EDBEDREQTM 16:49 → ENRESERV 16:51
PROVIDERS: ADMIT Internal Medicine; ATTEND Internal Medicine
DX: A08.4 Viral intestinal infection, unspecified (principal); E87.8 Other disorders of electrolyte and fluid balance, not elsewhere classified; I11.0 Hypertensive heart disease with heart failure; I50.9 Heart failure, unspecified; E87.1 Hypo-osmolality and hyponatremia; D18.03 Hemangioma of intra-abdominal structures; E87.6 Hypokalemia; G89.4 Chronic pain syndrome; F41.9 Anxiety disorder, unspecified; I16.1 Hypertensive emergency; J45.909 Unspecified asthma, uncomplicated; K21.9 Gastro-esophageal reflux disease without esophagitis; K44.9 Diaphragmatic hernia without obstruction or gangrene; N94.89 Other specified conditions associated with female genital organs and menstrual cycle; F19.10 Other psychoactive substance abuse, uncomplicated; T40.605A Adverse effect of unspecified narcotics, initial encounter; T40.7X5A Adverse effect of cannabis (derivatives), initial encounter; Z90.49 Acquired absence of other specified parts of digestive tract; Z88.6 Allergy status to analgesic agent; Z88.5 Allergy status to narcotic agent; Z88.0 Allergy status to penicillin; Z88.8 Allergy status to other drugs, medicaments and biological substances; Z87.11 Personal history of peptic ulcer disease; Y92.89 Other specified places as the place of occurrence of the external cause; Z79.899 Other long term (current) drug therapy
CPT/HCPCS: 36415; 71045; 74177; 80053; 80305; 80320; 81003; 83036; 83735; 84145; 84484; 84703; 85025; 93005; 99285; C9113; J0456; J1200; J1644; J1956; J2060; J2270; J2405; J2765; J3480; J3490; J7030; J7060; Q0164; Q9967; G0480

== ENCOUNTER 2020-01-23 15:41 | Inpatient (IN) | payer MEDICAID ==
[~2020-01-23] VITALS: Ht 152.4 cm; Wt 51.7 kg
[~2020-01-23 15:41] MED LIST changes: +ALBU6.7H9 INH; +ESCI10TA MT; +ONDA4TAB11 PO; +ONDA4TAB5 MT; -OXYC15TA88 PO; +PANT40TA4 MT
[2020-01-23] MEDS ORDERED: SODIUM CHLORIDE 0.9% 1,000 ML IV ONE (16:15)
[2020-01-23] MEDS ORDERED: MORPHINE SULFATE 4 MG/ML CPJ (NOT FOR IM USE) IV ONE (16:30)
[2020-01-23] MEDS ORDERED: ONDANSETRON HCL 4MG/2ML INJ IV ONE (16:30)
[2020-01-23] MEDS ORDERED: FAMOTIDINE 20MG/2ML VIAL IV ONE (16:30)
[2020-01-23] MEDS ORDERED: DIPHENHYDRAMINE 50MG/ML VIAL IV ONE ×2 (17:30→23:30)
[2020-01-23 17:49] LABS: BASOPHILS % 0.6 % (0.0-2.0); CHLORIDE 109 mEq/L (98-107); EOSINOPHILS % 0.4 % (0.0-5.0); HEMATOCRIT. 41.6 % (36.0-48.0); LYMPHOCYTES % 23.3 % (20.0-50.0); MEAN CORPUSCULAR HEMOGLOBIN 32.8 pg (28.0-32.0); MEAN CORPUSCULAR VOLUME 97.8 fL (81.0-99.0); MEAN PLATELET VOLUME 8.9 fl (7.4-10.4); MONOCYTES % 7.9 % (2.0-8.0); NEUTROPHILS % 67.8 % (40.0-76.0); PLATELET 218 x1000/uL (130-400); RED BLOOD CELL COUNT 4.25 mill/uL (4.2-5.4); RED CELL DISTRIBUTION WIDTH 18.1 % (11.6-14.6)
[2020-01-23 17:55] LABS: BETA HYDROXYBUTYRATE 0.3 mMol/L (0.0-0.3)
[2020-01-23] MEDS ORDERED: DIPHENHYDRAMINE 50MG/ML VIAL IV NR (19:45)
[2020-01-23] MEDS ORDERED: METOCLOPRAMIDE HCL 10MG/2ML VIAL IV NR ×2 (19:45→23:00)
[2020-01-23] MEDS ORDERED: MORPHINE SULFATE 4 MG/ML CPJ (NOT FOR IM USE) IV NR ×2 (19:45→23:00)
[2020-01-24] MEDS ORDERED: MORPHINE SULFATE 2 MG/ML CPJ (NOT FOR IM USE) IV NR (05:00)
[2020-01-24] MEDS ORDERED: ONDANSETRON HCL 4MG/2ML INJ IV PRN ×2 (09:30→12:15)
[2020-01-24] MEDS ORDERED: MORPHINE SULFATE 4 MG/ML CPJ (NOT FOR IM USE) IV PRN (09:30)
[2020-01-24] MEDS ORDERED: SODIUM CHLORIDE 0.45% 1,000 ML IV SCH (10:30)
[2020-01-24] MEDS ORDERED: DIPHENHYDRAMINE 50MG/ML VIAL IV PRN (10:30)
[2020-01-24 11:00] VITALS: BP 118/75
[2020-01-24] MEDS: DIPHENHYDRAMINE 50MG/ML VIAL IV PRN ×2 (12:51→23:15)
[2020-01-24] MEDS: MORPHINE SULFATE 2 MG/ML CPJ (NOT FOR IM USE) IV PRN ×3 (12:52→22:11)
[2020-01-24 15:32] LABS: BASOPHILS % 0.7 % (0.0-2.0); EOSINOPHILS % 1.6 % (0.0-5.0); HEMATOCRIT. 38.6 % (36.0-48.0); HEMOGLOBIN. 12.8 g/dL (12.0-16.0); LYMPHOCYTES % 43.8 % (20.0-50.0); MEAN CORPUSCULAR HEMOGLOBIN 32.2 pg (28.0-32.0); MEAN CORPUSCULAR VOLUME 97.3 fL (81.0-99.0); MEAN PLATELET VOLUME 8.5 fl (7.4-10.4); MONOCYTES % 10.1 % (2.0-8.0); NEUTROPHILS % 43.8 % (40.0-76.0); PLATELET 233 x1000/uL (130-400); RED BLOOD CELL COUNT 3.97 mill/uL (4.2-5.4); RED CELL DISTRIBUTION WIDTH 17.3 % (11.6-14.6)
[2020-01-24 15:42] LABS: CHLORIDE 101 mEq/L (98-107)
[2020-01-24] MEDS: METOCLOPRAMIDE HCL 10MG/2ML VIAL IV SCH (17:41)
[2020-01-24] MEDS ORDERED: GABA-529 MT (19:09)
[2020-01-24] MEDS ORDERED: ONDA4TAB5 MT (19:09)
[2020-01-24] MEDS ORDERED: POLY17PO3 MT (19:09)
[2020-01-24] MEDS ORDERED: LORA-249 MT (19:09)
[2020-01-24] MEDS ORDERED: METO25TA6 MT (19:09)
[2020-01-24] MEDS ORDERED: ALBU4TAB6 PO (19:09)
[2020-01-24] MEDS ORDERED: LACT10SO6 MT (19:09)
[2020-01-24 20:00] VITALS: BP 132/72
[2020-01-24] MEDS: FAMOTIDINE 20MG/2ML VIAL IV SCH (21:17)
[2020-01-24] MEDS: SODIUM CHLORIDE 0.45% 1,000 ML IV SCH (22:57)
[2020-01-25] VITALS: BP 152/87
[2020-01-25] MEDS ORDERED: POTASSIUM CHLORIDE INJ 40 MEQ in DEXT 5% WATER 500 ML IV NR ×2
[2020-01-25] MEDS: METOCLOPRAMIDE HCL 10MG/2ML VIAL IV SCH ×4 (00:38→17:03)
[2020-01-25 04:00] VITALS: BP 140/80
[2020-01-25] MEDS: MORPHINE SULFATE 2 MG/ML CPJ (NOT FOR IM USE) IV PRN ×5 (04:47→16:27)
[2020-01-25] MEDS: DIPHENHYDRAMINE 50MG/ML VIAL IV PRN ×2 (05:21→17:03)
[2020-01-25 08:00] VITALS: BP 137/81
[2020-01-25] MEDS: SODIUM CHLORIDE 0.45% 1,000 ML IV SCH (08:15)
[2020-01-25] MEDS: FAMOTIDINE 20MG/2ML VIAL IV SCH (08:35)
[2020-01-25 09:26] LABS: CLARITY URINE CLEAR (CLEAR); COLOR URINE YELLOW (YELLOW); KETONES URINE NEGATIVE (NEGATIVE); LEUKOCYTE ESTERASE URINE NEGATIVE (NEGATIVE); NITRITE URINE NEGATIVE (NEGATIVE); OCCULT BLOOD URINE NEGATIVE (NEGATIVE); PROTEIN URINE NEGATIVE (NEGATIVE); SPECIFIC GRAVITY URINE 1.007 (1.005-1.030)
[2020-01-25 10:13] LABS: *AMPHETAMINES SCREEN URINE NEGATIVE (NEGATIVE); *BARBITURATES SCREEN URINE NEGATIVE (NEGATIVE); *COCAINE SCREEN URINE NEGATIVE (NEGATIVE); METHADONE URINE SCREEN NEGATIVE (NEGATIVE)
[2020-01-25 10:14] LABS: PHENCYCLIDINE URINE SCREEN NEGATIVE (NEGATIVE)
[2020-01-25 10:15] LABS: *BENZODIAZEPINES SCREEN URINE PRESUMTIVE POSITIVE (NEGATIVE); OPIATES URINE SCREEN PRESUMTIVE POSITIVE (NEGATIVE)
[2020-01-25 10:16] LABS: CANNABINOID URINE SCREEN PRESUMTIVE POSITIVE (NEGATIVE)
[2020-01-25 12:00] VITALS: BP 128/84
[2020-01-25] MEDS ORDERED: POTASSIUM CHLORIDE 20MEQ TABLET SR PO SCH (12:00)
[2020-01-25 15:57] LABS: CHLORIDE 103 mEq/L (98-107)
[2020-01-25 16:00] VITALS: BP 139/77
[2020-01-25 18:07] VITALS: BP 139/77
[2020-01-31 09:07] LABS: 7-AMINOCLONAZEPAM CONFIRM Negative (.); ALPRAZOLAM CONFIRM Negative (.); CHLORDIAZEPOXIDE CONFIRM Negative (.); CLONAZEPAM CONFIRM Negative (.); DESMETHYLCHLORDIAZEPOXIDE Negative (.); DIAZEPAM CONFIRM Negative (.); FLURAZEPAM CONFIRM Negative (.); LORAZEPAM CONFIRM Negative (.); MIDAZOLAM CONFIRM Negative (.); OXAZEPAM CONFIRM Negative (.); TEMAZEPAM CONFIRM Negative (.); TRIAZOLAM CONFIRM Negative (.)
[2020-02-01 17:09] LABS: BARBITURATE SCREEN Negative ug/mL (Cutoff:0.1); BENZODIAZEPINE SCREEN ++POSITIVE++ ng/mL (Cutoff:20); OPIATES SCREEN ++POSITIVE++ ng/mL (Cutoff:5); PHENCYCLIDINE SCREEN Negative ng/mL (Cutoff:8)
== END 2020-01-25 18:29 | disposition home or self-care (01) | DRG 241 ==
LOC: ER 15:41 → 6EST 22:38 → ENRESERV 01-24 10:17
PROVIDERS: ADMIT Family Medicine; ATTEND Family Medicine
DX: K29.70 Gastritis, unspecified, without bleeding (principal); K85.90 Acute pancreatitis without necrosis or infection, unspecified; I11.0 Hypertensive heart disease with heart failure; D57.1 Sickle-cell disease without crisis; I50.9 Heart failure, unspecified; E86.0 Dehydration; R10.9 Unspecified abdominal pain; F41.9 Anxiety disorder, unspecified; G89.4 Chronic pain syndrome; J45.909 Unspecified asthma, uncomplicated; K21.9 Gastro-esophageal reflux disease without esophagitis; Z87.891 Personal history of nicotine dependence; Z88.8 Allergy status to other drugs, medicaments and biological substances; Z88.0 Allergy status to penicillin; Z88.6 Allergy status to analgesic agent; Z90.49 Acquired absence of other specified parts of digestive tract
CPT/HCPCS: 36415; 74018; 80053; 80305; 80307; 81003; 82010; 82962; 85025; 99285; J1200; J2270; J2405; J2765; J3480; J3490; J7030; J7060

== ENCOUNTER 2020-02-28 02:18 | Emergency (ER) | payer MEDICAID ==
[~2020-02-28] VITALS: Ht 152.4 cm; Wt 55.0 kg
[~2020-02-28 02:18] MED LIST changes: +ALBU4TAB6 PO; +GABA-529 MT; +LACT10SO6 MT; +LORA-249 MT; +METO25TA6 MT; +POLY17PO3 MT
[2020-02-28] MEDS ORDERED: HYDROCODONE/ACETAMINOPHEN 5/325MG TABLET PO ONE (03:00)
[2020-02-28] MEDS ORDERED: DIAZEPAM 5 MG/ML 2ML CPJ IM ONE (04:30)
[2020-02-28] MEDS ORDERED: ONDANSETRON 4MG ODT PO ONE (05:30)
[2020-02-28] MEDS ORDERED: MORPHINE SULFATE 10 MG/ML CPJ IM ONE (05:30)
[2020-02-28 05:47] VITALS: BP 110/83
== END 2020-02-28 06:48 | disposition home or self-care (01) ==
LOC: ER 02:18
DX: M54.16 Radiculopathy, lumbar region (principal); F41.9 Anxiety disorder, unspecified; J45.909 Unspecified asthma, uncomplicated; I11.0 Hypertensive heart disease with heart failure; J44.9 Chronic obstructive pulmonary disease, unspecified; Z90.49 Acquired absence of other specified parts of digestive tract; Z79.899 Other long term (current) drug therapy; Z88.0 Allergy status to penicillin
CPT/HCPCS: 70450; 72100; 96372; 99284; J2270; J3360; Q0162

== ENCOUNTER 2020-03-07 09:00 | Inpatient (IN) | payer MEDICAID ==
[~2020-03-07] VITALS: Ht 152.4 cm; Wt 62.1 kg
[2020-03-07] MEDS ORDERED: ONDANSETRON HCL 4MG/2ML INJ IV STA (09:07)
[2020-03-07] MEDS ORDERED: VISCOUS LIDOCAINE 2% 15 ML UDC PO STA (09:07)
[2020-03-07] MEDS ORDERED: SODIUM CHLORIDE 0.9% 1,000 ML IV ONE (09:07)
[2020-03-07] MEDS ORDERED: MAGNESIUM/ALUMINUM HYDROXIDE/SIMETHICONE 30ML UDC PO STA (09:07)
[2020-03-07] MEDS ORDERED: DICYCLOMINE 10 MG/5 ML ORAL SYR PO STA (09:07)
[2020-03-07] MEDS ORDERED: MORPHINE SULFATE 4 MG/ML CPJ (NOT FOR IM USE) IV STA (09:07)
[2020-03-07] MEDS ORDERED: PANTOPRAZOLE SODIUM 40 MG/VIAL IV STA (09:07)
[2020-03-07 10:56] LABS: BASOPHILS % 0.5 % (0.0-2.0); EOSINOPHILS % 0.5 % (0.0-5.0); HEMATOCRIT. 40.2 % (36.0-48.0); HEMOGLOBIN. 13.5 g/dL (12.0-16.0); LYMPHOCYTES % 23.8 % (20.0-50.0); MEAN CORPUSCULAR HEMOGLOBIN 33.5 pg (28.0-32.0); MEAN CORPUSCULAR VOLUME 99.9 fL (81.0-99.0); MONOCYTES % 5.5 % (2.0-8.0); NEUTROPHILS % 69.7 % (40.0-76.0); PLATELET 285 x1000/uL (130-400); RED BLOOD CELL COUNT 4.03 mill/uL (4.2-5.4); RED CELL DISTRIBUTION WIDTH 17.3 % (11.6-14.6)
[2020-03-07 10:59] LABS: CHLORIDE 105 mEq/L (98-107)
[2020-03-07 11:14] LABS: PROTHROMBIN TIME 44.3 sec (9.6-11.0)
[2020-03-07] MEDS ORDERED: DIPHENHYDRAMINE 50MG/ML VIAL IV ONE (11:30)
[2020-03-07 12:00] LABS: INR 4.2
[2020-03-07] MEDS ORDERED: MORPHINE SULFATE 4 MG/ML CPJ (NOT FOR IM USE) IV ONE (12:00)
[2020-03-07 12:34] LABS: CLARITY URINE CLEAR (CLEAR); COLOR URINE YELLOW (YELLOW); KETONES URINE 1+ (NEGATIVE); LEUKOCYTE ESTERASE URINE NEGATIVE (NEGATIVE); NITRITE URINE NEGATIVE (NEGATIVE); OCCULT BLOOD URINE NEGATIVE (NEGATIVE); PH URINE 7.5 (4.5-8.0); PROTEIN URINE NEGATIVE (NEGATIVE); SPECIFIC GRAVITY URINE 1.025 (1.005-1.030)
[2020-03-07 13:30] VITALS: BP 105/75
[2020-03-07] MEDS ORDERED: ACETAMINOPHEN 325MG TABLET PO PRN (14:15)
[2020-03-07] MEDS ORDERED: ONDANSETRON HCL 4MG/2ML INJ IV PRN (14:15)
[2020-03-07] MEDS ORDERED: DIPHENHYDRAMINE 25MG CAPSULE PO NR (17:45)
[2020-03-07] MEDS ORDERED: OXYCODONE HCL/ACETAMINOPHEN 5/325MG TABLET PO NR (18:00)
[2020-03-07] MEDS: DICYCLOMINE HCL 20MG TABLET PO SCH ×2 (18:12→23:14)
[2020-03-07 20:00] VITALS: BP 91/51
[2020-03-07] MEDS: MORPHINE SULFATE 2 MG/ML CPJ (NOT FOR IM USE) IV PRN (23:54)
[2020-03-08] VITALS: BP 111/71
[2020-03-08 04:00] VITALS: BP 116/81
[2020-03-08] MEDS: DICYCLOMINE HCL 20MG TABLET PO SCH (06:26)
[2020-03-08] MEDS: MORPHINE SULFATE 2 MG/ML CPJ (NOT FOR IM USE) IV PRN (06:32)
[2020-03-08] MEDS ORDERED: OMEPRAZOLE 20MG CAPSULE EXTENDED RELEASE PO SCH (07:20)
[2020-03-08 08:00] VITALS: BP 115/73
[2020-03-08 10:55] VITALS: BP 115/73
== END 2020-03-08 11:45 | disposition home or self-care (01) | DRG 241 ==
LOC: ER 09:00 → 6EST 11:51 → EDBEDREQTM 12:17 → EDBEDREQ 12:17 → ENRESERV 12:51
PROVIDERS: ADMIT Internal Medicine; ATTEND Internal Medicine
DX: K29.70 Gastritis, unspecified, without bleeding (principal); I11.0 Hypertensive heart disease with heart failure; I50.9 Heart failure, unspecified; G89.29 Other chronic pain; J44.9 Chronic obstructive pulmonary disease, unspecified; F41.9 Anxiety disorder, unspecified; F12.90 Cannabis use, unspecified, uncomplicated; Z79.899 Other long term (current) drug therapy; Z88.5 Allergy status to narcotic agent; Z88.0 Allergy status to penicillin; Z88.8 Allergy status to other drugs, medicaments and biological substances; Z88.6 Allergy status to analgesic agent; Z76.5 Malingerer [conscious simulation]; Z90.49 Acquired absence of other specified parts of digestive tract
CPT/HCPCS: 36415; 74018; 80053; 81003; 85025; 99285; C9113; J1200; J2270; J2405; J7030

== ENCOUNTER 2020-03-14 06:11 | Inpatient (IN) | payer MEDICAID ==
[~2020-03-14] VITALS: Ht 152.4 cm; Wt 64.9 kg
[2020-03-14] MEDS ORDERED: MORPHINE SULFATE 4 MG/ML CPJ (NOT FOR IM USE) IV STA (06:58)
[2020-03-14] MEDS ORDERED: DIPHENHYDRAMINE 50MG/ML VIAL IV ONE (07:00)
[2020-03-14] MEDS ORDERED: ONDANSETRON HCL 4MG/2ML INJ IV ONE (07:15)
[2020-03-14 07:43] LABS: BASOPHILS % 0.9 % (0.0-2.0); EOSINOPHILS % 1.2 % (0.0-5.0); HEMATOCRIT. 48.2 % (36.0-48.0); HEMOGLOBIN. 16.3 g/dL (12.0-16.0); LYMPHOCYTES % 24.5 % (20.0-50.0); MEAN CORPUSCULAR HEMOGLOBIN 33.6 pg (28.0-32.0); MEAN CORPUSCULAR VOLUME 99.1 fL (81.0-99.0); MEAN PLATELET VOLUME 8.8 fl (7.4-10.4); MONOCYTES % 7.1 % (2.0-8.0); NEUTROPHILS % 66.3 % (40.0-76.0); PLATELET 403 x1000/uL (130-400); RED BLOOD CELL COUNT 4.86 mill/uL (4.2-5.4)
[2020-03-14 07:45] LABS: CHLORIDE 103 mEq/L (98-107)
[2020-03-14 08:29] LABS: INR 1.1; PROTHROMBIN TIME 11.1 sec (9.6-11.0)
[2020-03-14] MEDS ORDERED: MORPHINE SULFATE 4 MG/ML CPJ (NOT FOR IM USE) IV ONE (08:45)
[2020-03-14 12:00] VITALS: BP 166/102
[2020-03-14 12:20] VITALS: BP 166/102
[2020-03-14] MEDS ORDERED: ONDANSETRON HCL 4MG/2ML INJ IV PRN (12:45)
[2020-03-14] MEDS ORDERED: METOCLOPRAMIDE HCL 10MG/2ML VIAL IV PRN (12:45)
[2020-03-14] MEDS ORDERED: ACETAMINOPHEN 325MG TABLET PO PRN (12:45)
[2020-03-14] MEDS ORDERED: CLONIDINE 0.1MG TABLET PO PRN (12:45)
[2020-03-14] MEDS: FAMOTIDINE 20MG/2ML VIAL IV SCH (13:12)
[2020-03-14] MEDS: DEXT 5%/0.45% NACL 1000ML 1,000 ML IV SCH ×2 (13:12→17:21)
[2020-03-14] MEDS: MORPHINE SULFATE 2 MG/ML CPJ (NOT FOR IM USE) IV PRN ×2 (13:14→18:19)
[2020-03-14 16:00] VITALS: BP 117/57
[2020-03-14 20:00] VITALS: BP 116/64
[2020-03-15] VITALS: BP 109/75
[2020-03-15] MEDS: MORPHINE SULFATE 2 MG/ML CPJ (NOT FOR IM USE) IV PRN ×5 (00:51→21:02)
[2020-03-15 04:00] VITALS: BP 103/69
[2020-03-15 08:00] VITALS: BP 118/81
[2020-03-15] MEDS: FAMOTIDINE 20MG/2ML VIAL IV SCH (08:39)
[2020-03-15] MEDS ORDERED: HYDROCODONE/ACETAMINOPHEN 10/325MG TABLET PO PRN (09:25)
[2020-03-15] MEDS ORDERED: LIDOCAINE HCL 1% 20ML VIAL (Pyxis) INJ ONE (10:28)
[2020-03-15] MEDS ORDERED: SODIUM BICARBONATE 4% (2.4MEQ) 5ML VIAL IV ONE (10:28)
[2020-03-15 10:57] LABS: BASOPHILS % 0.6 % (0.0-2.0); EOSINOPHILS % 1.5 % (0.0-5.0); HEMATOCRIT. 44.1 % (36.0-48.0); HEMOGLOBIN. 14.9 g/dL (12.0-16.0); LYMPHOCYTES % 44.7 % (20.0-50.0); MEAN CORPUSCULAR HEMOGLOBIN 33.6 pg (28.0-32.0); MEAN CORPUSCULAR VOLUME 99.4 fL (81.0-99.0); MEAN PLATELET VOLUME 8.1 fl (7.4-10.4); MONOCYTES % 8.7 % (2.0-8.0); NEUTROPHILS % 44.5 % (40.0-76.0); PLATELET 299 x1000/uL (130-400); RED BLOOD CELL COUNT 4.44 mill/uL (4.2-5.4); RED CELL DISTRIBUTION WIDTH 16.3 % (11.6-14.6)
[2020-03-15 11:03] LABS: CHLORIDE 97 mEq/L (98-107)
[2020-03-15 12:00] VITALS: BP 118/76
[2020-03-15 16:00] VITALS: BP 147/84
[2020-03-15 20:00] VITALS: BP 133/91
[2020-03-16] VITALS: BP 94/55
[2020-03-16] MEDS: MORPHINE SULFATE 2 MG/ML CPJ (NOT FOR IM USE) IV PRN ×3 (01:48→11:26)
[2020-03-16 04:00] VITALS: BP 119/78
[2020-03-16 08:00] VITALS: BP 108/77
[2020-03-16] MEDS: FAMOTIDINE 20MG/2ML VIAL IV SCH (08:40)
[2020-03-16 12:00] VITALS: BP 119/70
[2020-03-16 12:29] VITALS: BP 119/70
[2020-03-16] MEDS ORDERED: PANTOPRAZOLE SODIUM 40 MG/VIAL IV SCH (12:30)
== END 2020-03-16 13:03 | disposition home or self-care (01) | DRG 251 ==
LOC: ER 06:11 → 6EST 09:45 → EDBEDREQ 09:49 → EDBEDREQTM 09:49 → ENRESERV 10:56
PROVIDERS: ADMIT Hospitalist; ATTEND Hospitalist
PROC: 02HV33Z Insertion of Infusion Device into Superior Vena Cava, Percutaneous Approach (ICD-10-PCS; principal; 2020-03-15)
PROC: B5181ZA Fluoroscopy of Superior Vena Cava using Low Osmolar Contrast, Guidance (ICD-10-PCS; 2020-03-15)
PROC: B548ZZA Ultrasonography of Superior Vena Cava, Guidance (ICD-10-PCS; 2020-03-15)
DX: R10.9 Unspecified abdominal pain (principal); I11.0 Hypertensive heart disease with heart failure; D57.1 Sickle-cell disease without crisis; I50.9 Heart failure, unspecified; D18.03 Hemangioma of intra-abdominal structures; F17.200 Nicotine dependence, unspecified, uncomplicated; K29.70 Gastritis, unspecified, without bleeding; K44.9 Diaphragmatic hernia without obstruction or gangrene; F12.90 Cannabis use, unspecified, uncomplicated; J45.909 Unspecified asthma, uncomplicated; F19.10 Other psychoactive substance abuse, uncomplicated; F41.9 Anxiety disorder, unspecified; G89.29 Other chronic pain; Z20.828 Contact with and (suspected) exposure to other viral communicable diseases; J44.9 Chronic obstructive pulmonary disease, unspecified; Z87.11 Personal history of peptic ulcer disease; Z76.5 Malingerer [conscious simulation]; Z88.5 Allergy status to narcotic agent; Z90.49 Acquired absence of other specified parts of digestive tract; Z88.0 Allergy status to penicillin; Z91.018 Allergy to other foods; Z79.899 Other long term (current) drug therapy; Z90.89 Acquired absence of other organs
CPT/HCPCS: 36415; 36573; 76937; 80053; 85025; 99285; C1725; J1200; J2270; J2405; J3490

== ENCOUNTER 2020-04-09 07:25 | Inpatient (IN) | payer MEDICAID ==
[~2020-04-09] VITALS: Ht 152.4 cm; Wt 63.5 kg
[2020-04-09] MEDS ORDERED: ONDANSETRON HCL 4MG/2ML INJ IV STA (07:58)
[2020-04-09] MEDS ORDERED: MORPHINE SULFATE 4 MG/ML CPJ (NOT FOR IM USE) IV STA (07:58)
[2020-04-09] MEDS ORDERED: SODIUM CHLORIDE 0.9% 1,000 ML IV ONE (07:58)
[2020-04-09 08:20] LABS: BASOPHILS % 0.6 % (0.0-2.0); EOSINOPHILS % 1.4 % (0.0-5.0); HEMATOCRIT. 43.5 % (36.0-48.0); HEMOGLOBIN. 14.5 g/dL (12.0-16.0); LYMPHOCYTES % 28.4 % (20.0-50.0); MEAN CORPUSCULAR HEMOGLOBIN 32.9 pg (28.0-32.0); MEAN PLATELET VOLUME 7.9 fl (7.4-10.4); MONOCYTES % 8.7 % (2.0-8.0); NEUTROPHILS % 60.9 % (40.0-76.0); PLATELET 305 x1000/uL (130-400); RED CELL DISTRIBUTION WIDTH 15.9 % (11.6-14.6)
[2020-04-09 08:22] LABS: CHLORIDE 105 mEq/L (98-107)
[2020-04-09 08:28] LABS: PROTHROMBIN TIME 10.3 sec (9.6-11.0)
[2020-04-09 08:29] LABS: HCG SCREEN NEGATIVE
[2020-04-09] MEDS ORDERED: MORPHINE SULFATE 4 MG/ML CPJ (NOT FOR IM USE) IV ONE (09:15)
[2020-04-09] MEDS ORDERED: MAGNESIUM/ALUMINUM HYDROXIDE/SIMETHICONE 30ML UDC PO PRN (13:15)
[2020-04-09] MEDS ORDERED: ACETAMINOPHEN 325MG TABLET PO PRN (13:15)
[2020-04-09] MEDS: OXYCODONE HCL/ACETAMINOPHEN 5/325MG TABLET PO PRN (16:27)
[2020-04-09 16:55] LABS: CLARITY URINE CLEAR (CLEAR); COLOR URINE YELLOW (YELLOW); KETONES URINE TRACE (NEGATIVE); LEUKOCYTE ESTERASE URINE 2+ (NEGATIVE); NITRITE URINE NEGATIVE (NEGATIVE); OCCULT BLOOD URINE NEGATIVE (NEGATIVE); PH URINE 7.5 (4.5-8.0); PROTEIN URINE TRACE (NEGATIVE); SPECIFIC GRAVITY URINE 1.026 (1.005-1.030)
[2020-04-09 17:00] VITALS: BP 132/75
[2020-04-09 17:05] VITALS: BP 132/75
[2020-04-09] MEDS ORDERED: IPRATROPIUM/ALBUTEROL 0.5-3(2.5)MG/3ML NEB HHN PRN (17:15)
[2020-04-09 20:00] VITALS: BP 138/93
[2020-04-09] MEDS: SUCRALFATE 1G TABLET PO SCH (20:15)
[2020-04-09] MEDS: MORPHINE SULFATE 4 MG/ML CPJ (NOT FOR IM USE) IV PRN (20:20)
[2020-04-09] MEDS: CEFTRIAXONE 1 G PREMIX 50 ML IV SCH (23:23)
[2020-04-10] VITALS: BP 115/72
[2020-04-10] MEDS ORDERED: LORAZEPAM 1MG TABLET PO PRN
[2020-04-10] MEDS: MORPHINE SULFATE 4 MG/ML CPJ (NOT FOR IM USE) IV PRN ×3 (02:14→17:01)
[2020-04-10] MEDS: ONDANSETRON HCL 4MG/2ML INJ IV PRN ×2 (02:23→14:35)
[2020-04-10 04:00] VITALS: BP 95/62
[2020-04-10] MEDS: SUCRALFATE 1G TABLET PO SCH ×4 (07:17→21:47)
[2020-04-10 08:00] VITALS: BP 110/56
[2020-04-10] MEDS: PANTOPRAZOLE SODIUM 40 MG/VIAL IV SCH (08:47)
[2020-04-10 12:00] VITALS: BP 112/62
[2020-04-10] MEDS ORDERED: BISACODYL 10MG SUPP PR PRN (12:30)
[2020-04-10] MEDS: DOCUSATE SODIUM 250MG CAPSULE PO SCH (12:40)
[2020-04-10] MEDS ORDERED: METRONIDAZOLE 500MG TABLET PO SCH (12:45)
[2020-04-10] MEDS: OXYCODONE HCL/ACETAMINOPHEN 5/325MG TABLET PO PRN (13:11)
[2020-04-10 16:00] VITALS: BP 114/80
[2020-04-10 20:00] VITALS: BP 91/53
[2020-04-10] MEDS: CEFTRIAXONE 1 G PREMIX 50 ML IV SCH (21:47)
[2020-04-11] VITALS: BP 106/66
[2020-04-11] MEDS: MORPHINE SULFATE 4 MG/ML CPJ (NOT FOR IM USE) IV PRN ×2 (00:54→09:39)
[2020-04-11 04:00] VITALS: BP 113/59
[2020-04-11] MEDS: SUCRALFATE 1G TABLET PO SCH ×2 (06:26→12:25)
[2020-04-11 08:00] VITALS: BP 103/65
[2020-04-11] MEDS: PANTOPRAZOLE SODIUM 40 MG/VIAL IV SCH (09:29)
[2020-04-11] MEDS: DOCUSATE SODIUM 250MG CAPSULE PO SCH (09:29)
[2020-04-11 11:44] VITALS: BP 110/65
[2020-04-11 13:37] VITALS: BP 112/67
[2020-04-11] MEDS: OXYCODONE HCL/ACETAMINOPHEN 5/325MG TABLET PO PRN (13:37)
[2020-04-11] MEDS ORDERED: CEFTRIAXONE 1,000 MG in DEXTROSE 5% WATER 50 ML IV SCH (20:00)
== END 2020-04-11 13:57 | disposition home or self-care (01) | DRG 463 ==
LOC: ER 07:36 → 6EST 10:21 → ENRESERV 15:33
PROVIDERS: ADMIT Internal Medicine; ATTEND Internal Medicine
DX: N39.0 Urinary tract infection, site not specified (principal); G89.29 Other chronic pain; J44.9 Chronic obstructive pulmonary disease, unspecified; I11.0 Hypertensive heart disease with heart failure; F41.9 Anxiety disorder, unspecified; F11.20 Opioid dependence, uncomplicated; I50.9 Heart failure, unspecified; J45.909 Unspecified asthma, uncomplicated; Z87.11 Personal history of peptic ulcer disease; Z76.5 Malingerer [conscious simulation]; Z86.11 Personal history of tuberculosis; Z90.49 Acquired absence of other specified parts of digestive tract; Z90.721 Acquired absence of ovaries, unilateral; Z88.8 Allergy status to other drugs, medicaments and biological substances; Z88.0 Allergy status to penicillin; Z88.5 Allergy status to narcotic agent; Z79.51 Long term (current) use of inhaled steroids; Z79.899 Other long term (current) drug therapy
CPT/HCPCS: 36415; 74176; 80053; 81003; 84703; 85025; 93005; 94640; 99285; C9113; J0696; J2270; J2405; J7030; J7060

== ENCOUNTER 2020-05-19 19:32 | Emergency (ER) | payer MEDICAID ==
[~2020-05-19] VITALS: Ht 165.1 cm; Wt 69.0 kg
[~2020-05-19 19:32] MED LIST changes: -PANT40TA4 PO
[2020-05-19] MEDS ORDERED: ONDANSETRON HCL 4MG/2ML INJ IV STA (20:01)
[2020-05-19] MEDS ORDERED: MORPHINE SULFATE 4 MG/ML CPJ (NOT FOR IM USE) IV STA ×2 (20:01→21:11)
[2020-05-19 21:09] LABS: CHLORIDE 105 mEq/L (98-107)
[2020-05-19 21:21] LABS: INR 1.1; PROTHROMBIN TIME 11.1 sec (9.6-11.0)
[2020-05-19 21:25] LABS: CLARITY URINE CLEAR (CLEAR); COLOR URINE YELLOW (YELLOW); KETONES URINE 1+ (NEGATIVE); LEUKOCYTE ESTERASE URINE TRACE (NEGATIVE); NITRITE URINE NEGATIVE (NEGATIVE); OCCULT BLOOD URINE NEGATIVE (NEGATIVE); PROTEIN URINE TRACE (NEGATIVE); SPECIFIC GRAVITY URINE 1.025 (1.005-1.030)
[2020-05-19 21:29] LABS: HCG SCREEN NEGATIVE
[2020-05-19] MEDS ORDERED: DIPHENHYDRAMINE 25MG CAPSULE PO ONE (21:30)
[2020-05-19 21:36] LABS: HEMATOCRIT. 45.9 % (36.0-48.0); MEAN CORPUSCULAR VOLUME 100.8 fL (81.0-99.0); PLATELET 252 x1000/uL (130-400); RED BLOOD CELL COUNT 4.55 mill/uL (4.2-5.4); RED CELL DISTRIBUTION WIDTH 16.1 % (11.6-14.6)
[2020-05-19] MEDS ORDERED: SODIUM CHLORIDE 0.9% 1,000 ML IV ONE ×2 (21:37→23:45)
[2020-05-19] MEDS ORDERED: DIPHENHYDRAMINE 50MG/ML VIAL IV ONE (21:45)
[2020-05-19 21:57] LABS: PLATELET ESTIMATE NORMAL
[2020-05-20] MEDS ORDERED: OLANZAPINE 10 MG/VIAL IM ONE (00:30)
[2020-05-20] MEDS ORDERED: LORAZEPAM 2MG/ML CPJ IV ONE (00:30)
[2020-05-20] MEDS ORDERED: SODIUM CHLORIDE 0.9% 1,000 ML IV ONE (01:00)
[2020-05-20] MEDS ORDERED: MORPHINE SULFATE 4 MG/ML CPJ (NOT FOR IM USE) IV ONE (01:00)
[2020-05-20] MEDS ORDERED: CEFTRIAXONE 1 G PREMIX 50 ML IV SCH (01:15)
[2020-05-20] MEDS ORDERED: MAGNESIUM/ALUMINUM HYDROXIDE/SIMETHICONE 30ML UDC PO STA (04:06)
[2020-05-20] MEDS ORDERED: VISCOUS LIDOCAINE 2% 15 ML UDC PO STA (04:06)
[2020-05-20 04:30] VITALS: BP 121/86
== END 2020-05-20 04:30 | disposition home or self-care (01) ==
LOC: ER 19:32
DX: R10.9 Unspecified abdominal pain (principal); R11.2 Nausea with vomiting, unspecified; I10 Essential (primary) hypertension; J45.909 Unspecified asthma, uncomplicated; Z88.0 Allergy status to penicillin; Z88.8 Allergy status to other drugs, medicaments and biological substances; Z88.5 Allergy status to narcotic agent; Z88.6 Allergy status to analgesic agent; Z91.018 Allergy to other foods; Z79.899 Other long term (current) drug therapy; Z98.890 Other specified postprocedural states; Z90.49 Acquired absence of other specified parts of digestive tract
CPT/HCPCS: 36415; 80053; 81003; 83605; 83690; 84703; 85025; 85610; 93005; 96361; 96365; 96375; 96376; 99285; J0696; J1200; J2270; J2405; J7030

== ENCOUNTER 2020-06-01 00:29 | Emergency (ER) | payer MEDICAID ==
[~2020-06-01] VITALS: Ht 157.5 cm; Wt 50.0 kg
[2020-06-01] MEDS ORDERED: ONDANSETRON HCL 4MG/2ML INJ IV STA (00:58)
[2020-06-01] MEDS ORDERED: MORPHINE SULFATE 4 MG/ML CPJ (NOT FOR IM USE) IV STA (00:58)
[2020-06-01] MEDS ORDERED: DIPHENHYDRAMINE 25MG CAPSULE PO ONE (01:30)
[2020-06-01] MEDS ORDERED: HALOPERIDOL LACTATE 5MG/ML VIAL IM ONE (01:30)
[2020-06-01] MEDS ORDERED: ACETAMINOPHEN 500MG TABLET PO ONE (01:45)
[2020-06-01 02:15] LABS: BASOPHILS % 0.5 % (0.0-2.0); EOSINOPHILS % 1.3 % (0.0-5.0); HEMATOCRIT. 44.9 % (36.0-48.0); HEMOGLOBIN. 15.1 g/dL (12.0-16.0); LYMPHOCYTES % 21.7 % (20.0-50.0); MEAN CORPUSCULAR HEMOGLOBIN 33.4 pg (28.0-32.0); MEAN CORPUSCULAR VOLUME 99.7 fL (81.0-99.0); MEAN PLATELET VOLUME 8.2 fl (7.4-10.4); MONOCYTES % 6.5 % (2.0-8.0); PLATELET 289 x1000/uL (130-400); RED CELL DISTRIBUTION WIDTH 15.8 % (11.6-14.6)
[2020-06-01 02:16] LABS: CHLORIDE 103 mEq/L (98-107)
[2020-06-01 02:20] LABS: PROTHROMBIN TIME 10.5 sec (9.6-11.0)
[2020-06-01 02:21] LABS: ETHANOL BLOOD < 10 mg/dL
[2020-06-01 02:55] VITALS: BP 99/56
== END 2020-06-01 03:38 | disposition left against medical advice (07) ==
LOC: ER 00:29
DX: G89.29 Other chronic pain (principal); R10.9 Unspecified abdominal pain; J45.909 Unspecified asthma, uncomplicated; I10 Essential (primary) hypertension; Z76.5 Malingerer [conscious simulation]; Z88.8 Allergy status to other drugs, medicaments and biological substances; Z88.6 Allergy status to analgesic agent; Z91.018 Allergy to other foods; Z88.0 Allergy status to penicillin; Z79.899 Other long term (current) drug therapy; Z90.49 Acquired absence of other specified parts of digestive tract; Z98.890 Other specified postprocedural states
CPT/HCPCS: 36415; 80053; 80320; 82962; 83605; 83690; 85025; 85610; 93005; 99284; J1630; J2270; J2405; Q0163; G0480

== ENCOUNTER 2020-06-01 03:58 | Emergency (ER) | payer MEDICAID ==
[2020-06-01] MEDS ORDERED: HALOPERIDOL LACTATE 5MG/ML VIAL IM ONE (04:15)
[2020-06-01] MEDS ORDERED: ACETAMINOPHEN 500MG TABLET PO ONE (04:15)
== END 2020-06-01 05:10 | disposition home or self-care (01) ==
LOC: ER 03:58
DX: G89.29 Other chronic pain (principal); R10.9 Unspecified abdominal pain; Z76.5 Malingerer [conscious simulation]; I10 Essential (primary) hypertension; J45.909 Unspecified asthma, uncomplicated; Z90.49 Acquired absence of other specified parts of digestive tract; Z88.6 Allergy status to analgesic agent; Z88.0 Allergy status to penicillin; Z88.8 Allergy status to other drugs, medicaments and biological substances
CPT/HCPCS: 99281

== ENCOUNTER 2021-01-03 09:38 | Inpatient (IN) | payer MEDICAID ==
[~2021-01-03] VITALS: Ht 167.6 cm; Wt 65.8 kg
[~2021-01-03 09:38] MED LIST changes: -PANT40TA4 MT; +PANT40TA51 MT
[2021-01-03] MEDS ORDERED: MORPHINE SULFATE 4 MG/ML CPJ (NOT FOR IM USE) IV STA (10:09)
[2021-01-03] MEDS ORDERED: ONDANSETRON HCL 4MG/2ML INJ IV STA (10:09)
[2021-01-03] MEDS ORDERED: FAMOTIDINE 20MG/2ML VIAL IV STA (10:09)
[2021-01-03] MEDS ORDERED: SODIUM CHLORIDE 0.9% 1,000 ML IV ONE (10:15)
[2021-01-03 10:59] LABS: BASOPHILS % 0.5 % (0.0-2.0); EOSINOPHILS % 1.3 % (0.0-5.0); HEMOGLOBIN. 15.1 g/dL (12.0-16.0); LYMPHOCYTES % 15.3 % (20.0-50.0); MEAN CORPUSCULAR VOLUME 103.4 fL (81.0-99.0); MEAN PLATELET VOLUME 8.6 fl (7.4-10.4); NEUTROPHILS % 72.9 % (40.0-76.0); PLATELET 259 x1000/uL (130-400); RED BLOOD CELL COUNT 4.45 mill/uL (4.2-5.4)
[2021-01-03 11:07] LABS: CHLORIDE 100 mEq/L (98-107)
[2021-01-03 11:09] LABS: PROTHROMBIN TIME 10.6 sec (9.6-11.0)
[2021-01-03 11:33] LABS: HCG SCREEN NEGATIVE
[2021-01-03] MEDS: SODIUM CHLORIDE 0.9% 1,000 ML IV SCH (17:45)
[2021-01-03] MEDS ORDERED: ONDANSETRON HCL 4MG/2ML INJ IV PRN (17:45)
[2021-01-03] MEDS ORDERED: MORPHINE SULFATE 4 MG/ML CPJ (NOT FOR IM USE) IV PRN (17:45)
[2021-01-03] MEDS ORDERED: IOHEXOL-300 100 ML BOTTLE ONE (18:56)
[2021-01-03] MEDS: ACETAMINOPHEN 325MG TABLET PO PRN (20:48)
[2021-01-03] MEDS ORDERED: TRAZODONE HCL 50MG TABLET PO PRN (21:00)
[2021-01-03] MEDS: AMLODIPINE 5MG TABLET PO SCH (22:18)
[2021-01-03] MEDS: HEPARIN 5000 UNITS/ML VIAL SUBCUT SCH (22:20)
[2021-01-03 23:35] VITALS: BP 109/78
[2021-01-04] VITALS: BP 116/78
[2021-01-04 04:00] VITALS: BP 117/84
[2021-01-04] MEDS: SODIUM CHLORIDE 0.9% 1,000 ML IV SCH (06:05)
[2021-01-04 07:32] LABS: BASOPHILS % 0.5 % (0.0-2.0); EOSINOPHILS % 1.8 % (0.0-5.0); HEMATOCRIT. 43.8 % (36.0-48.0); LYMPHOCYTES % 32.2 % (20.0-50.0); MEAN CORPUSCULAR HEMOGLOBIN 34.4 pg (28.0-32.0); MEAN CORPUSCULAR VOLUME 107.7 fL (81.0-99.0); MEAN PLATELET VOLUME 8.8 fl (7.4-10.4); MONOCYTES % 9.7 % (2.0-8.0); NEUTROPHILS % 55.8 % (40.0-76.0); PLATELET 203 x1000/uL (130-400); RED BLOOD CELL COUNT 4.07 mill/uL (4.2-5.4)
[2021-01-04 08:07] LABS: CHLORIDE 103 mEq/L (98-107)
[2021-01-04] MEDS: AMLODIPINE 5MG TABLET PO SCH (10:36)
[2021-01-04] MEDS: HEPARIN 5000 UNITS/ML VIAL SUBCUT SCH (10:38)
[2021-01-04] MEDS: ACETAMINOPHEN 325MG TABLET PO PRN (10:45)
[2021-01-04] MEDS ORDERED: TOPUD PO (12:47)
[2021-01-04 12:59] LABS: TOTAL IRON BINDING CAPACITY 486 ug/dL (250-450)
[2021-01-04 13:53] LABS: FOLIC ACID (FOLATE) SERUM 5.6 ng/mL (>5.38)
== END 2021-01-04 13:15 | disposition left against medical advice (07) | DRG 241 ==
LOC: ER 09:38 → 6EST 13:32 → EDBEDREQ 13:45 → ENRESERV 19:18
PROVIDERS: ADMIT Family Medicine Adult Medicine; ATTEND Family Medicine Adult Medicine
DX: K29.70 Gastritis, unspecified, without bleeding (principal); I11.0 Hypertensive heart disease with heart failure; D57.1 Sickle-cell disease without crisis; I50.9 Heart failure, unspecified; I48.91 Unspecified atrial fibrillation; E78.5 Hyperlipidemia, unspecified; F11.23 Opioid dependence with withdrawal; F41.9 Anxiety disorder, unspecified; G89.4 Chronic pain syndrome; Z53.21 Procedure and treatment not carried out due to patient leaving prior to being seen by health care provider; J45.909 Unspecified asthma, uncomplicated; Z79.899 Other long term (current) drug therapy; Z87.11 Personal history of peptic ulcer disease; Z90.49 Acquired absence of other specified parts of digestive tract; Z88.8 Allergy status to other drugs, medicaments and biological substances; Z88.5 Allergy status to narcotic agent; Z88.0 Allergy status to penicillin; Z91.018 Allergy to other foods
CPT/HCPCS: 36415; 71045; 76700; 80053; 82607; 82746; 83540; 83550; 83735; 84703; 85025; 93005; 93306; 99285; J1644; J2405; J3490; J7030; Q9967

== ENCOUNTER 2021-03-13 14:53 | Emergency (ER) | payer MEDICAID ==
[~2021-03-13] VITALS: Ht 165.1 cm; Wt 60.0 kg
[~2021-03-13 14:53] MED LIST changes: +TOPUD PO
[2021-03-13] MEDS ORDERED: SODIUM CHLORIDE 0.9% 1,000 ML IV ONE (15:30)
[2021-03-13] MEDS ORDERED: NALOXONE HCL 0.4 MG/ML 1ML VIAL IV PRN (15:30)
[2021-03-13 16:15] VITALS: BP 110/82
== END 2021-03-13 16:16 | disposition left against medical advice (07) ==
LOC: ER 14:53
DX: R41.82 Altered mental status, unspecified (principal); I10 Essential (primary) hypertension; J45.909 Unspecified asthma, uncomplicated; Z90.49 Acquired absence of other specified parts of digestive tract; Z88.6 Allergy status to analgesic agent; Z88.8 Allergy status to other drugs, medicaments and biological substances; Z91.018 Allergy to other foods
CPT/HCPCS: 99283; J7030; Z7610

== ENCOUNTER 2021-07-10 20:06 | Emergency (ER) | payer MEDICAID ==
[~2021-07-10] VITALS: Ht 167.6 cm; Wt 59.0 kg
[~2021-07-10 20:06] MED LIST changes: -ONDA4TAB11 PO; -POLY17PO3 MT
[2021-07-10] MEDS ORDERED: MORPHINE SULFATE 4 MG/ML CPJ (NOT FOR IM USE) IV ONE (22:30)
[2021-07-10] MEDS ORDERED: ONDANSETRON HCL 4MG/2ML INJ IV ONE (22:45)
[2021-07-10] MEDS ORDERED: DIPHENHYDRAMINE 50MG/ML VIAL IV ONE (23:45)
[2021-07-10 23:56] LABS: BASOPHILS % 0.6 % (0.0-2.0); EOSINOPHILS % 0.2 % (0.0-5.0); HEMATOCRIT. 41.9 % (36.0-48.0); HEMOGLOBIN. 14.2 g/dL (12.0-16.0); MEAN CORPUSCULAR HEMOGLOBIN 33.7 pg (28.0-32.0); MEAN CORPUSCULAR VOLUME 99.8 fL (81.0-99.0); MEAN PLATELET VOLUME 8.1 fl (7.4-10.4); MONOCYTES % 3.6 % (2.0-8.0); NEUTROPHILS % 77.6 % (40.0-76.0); PLATELET 294 x1000/uL (130-400); RED CELL DISTRIBUTION WIDTH 14.3 % (11.6-14.6)
[2021-07-10 23:57] LABS: CHLORIDE 102 mEq/L (98-107)
[2021-07-11] MEDS ORDERED: MORPHINE SULFATE 4 MG/ML CPJ (NOT FOR IM USE) IV ONE (02:00)
[2021-07-11 02:53] LABS: HCG SCREEN NEGATIVE
[2021-07-11 08:24] VITALS: BP 142/99
== END 2021-07-11 12:00 | disposition home or self-care (01) ==
LOC: ER 20:06
DX: R07.9 Chest pain, unspecified (principal); G89.29 Other chronic pain; M54.9 Dorsalgia, unspecified; R10.13 Epigastric pain; I10 Essential (primary) hypertension; J45.909 Unspecified asthma, uncomplicated; Z87.19 Personal history of other diseases of the digestive system; Z88.8 Allergy status to other drugs, medicaments and biological substances; Z88.6 Allergy status to analgesic agent; Z79.899 Other long term (current) drug therapy; Z88.5 Allergy status to narcotic agent; Z88.0 Allergy status to penicillin; Z91.018 Allergy to other foods
CPT/HCPCS: 36415; 71045; 74176; 80053; 83690; 84484; 84703; 85025; 85044; 85660; 93005; 96374; 96375; 96376; 99285; C1893; J1200; J2270; J2405; Z7610

== ENCOUNTER 2021-07-18 11:09 | Emergency (ER) | payer MEDICAID ==
[~2021-07-18] VITALS: Ht 165.1 cm; Wt 60.0 kg
[2021-07-18 11:12] VITALS: BP 138/80
== END 2021-07-18 13:05 | disposition left against medical advice (07) ==
LOC: ER 11:50
DX: Z53.21 Procedure and treatment not carried out due to patient leaving prior to being seen by health care provider (principal)

== ENCOUNTER 2021-10-20 01:23 | Emergency (ER) | payer MEDICAID ==
[~2021-10-20] VITALS: Ht 165.1 cm; Wt 59.0 kg
[2021-10-20] MEDS ORDERED: MORPHINE SULFATE 4 MG/ML CPJ (NOT FOR IM USE) IV STA (02:52)
[2021-10-20] MEDS ORDERED: SODIUM CHLORIDE 0.9% 1,000 ML IV ONE (03:00)
[2021-10-20 03:28] LABS: BASOPHILS % 0.4 % (0.0-2.0); EOSINOPHILS % 0.1 % (0.0-5.0); HEMOGLOBIN. 15.1 g/dL (12.0-16.0); LYMPHOCYTES % 12.8 % (20.0-50.0); MEAN CORPUSCULAR HEMOGLOBIN 33.4 pg (28.0-32.0); MEAN CORPUSCULAR VOLUME 97.6 fL (81.0-99.0); MEAN PLATELET VOLUME 8.5 fl (7.4-10.4); MONOCYTES % 3.8 % (2.0-8.0); NEUTROPHILS % 82.9 % (40.0-76.0); PLATELET 310 x1000/uL (130-400); RED BLOOD CELL COUNT 4.51 mill/uL (4.2-5.4); RED CELL DISTRIBUTION WIDTH 14.8 % (11.6-14.6)
[2021-10-20 03:37] LABS: CHLORIDE 99 mEq/L (98-107)
[2021-10-20 03:42] LABS: ETHANOL BLOOD 29 mg/dL
[2021-10-20 03:56] LABS: HCG SCREEN NEGATIVE
[2021-10-20] MEDS ORDERED: FAMOTIDINE 20MG/2ML VIAL IV ONE (04:30)
[2021-10-20] MEDS ORDERED: MAGNESIUM/ALUMINUM HYDROXIDE/SIMETHICONE 30ML UDC PO ONE (04:30)
[2021-10-20] MEDS ORDERED: ACETAMINOPHEN 325MG TABLET PO ONE (04:30)
[2021-10-20] MEDS ORDERED: OMEP40CA20 MT (04:55)
[2021-10-20] MEDS ORDERED: TOPUD PO (04:56)
[2021-10-20 06:00] VITALS: BP 125/101
== END 2021-10-20 08:23 | disposition home or self-care (01) ==
LOC: ER 01:46
DX: R10.13 Epigastric pain (principal); J45.909 Unspecified asthma, uncomplicated; I10 Essential (primary) hypertension; Z88.0 Allergy status to penicillin; Z88.8 Allergy status to other drugs, medicaments and biological substances; Z88.6 Allergy status to analgesic agent; Z91.018 Allergy to other foods; Z79.899 Other long term (current) drug therapy; Z86.59 Personal history of other mental and behavioral disorders; Z76.5 Malingerer [conscious simulation]
CPT/HCPCS: 36415; 71045; 80053; 80320; 83605; 83690; 83880; 84484; 84703; 85025; 86850; 86900; 86901; 93005; 96361; 96374; 96375; 99285; J2270; J3490; G0480

== ENCOUNTER 2021-11-09 16:13 | Emergency (ER) | payer MEDICAID ==
[~2021-11-09] VITALS: Ht 162.6 cm; Wt 55.0 kg
[~2021-11-09 16:13] MED LIST changes: +OMEP40CA20 MT
[2021-11-09] MEDS ORDERED: IPRATROPIUM BROMIDE (0.02%) 0.5MG/2.5ML NEB HHN STA (16:48)
[2021-11-09] MEDS ORDERED: ALBUTEROL (0.083%) 2.5MG/3ML NEB HHN STA (16:48)
[2021-11-09] MEDS ORDERED: METHYLPREDNISOLONE SOD SUCC 125 MG/2 ML VIAL IV ONE (17:00)
[2021-11-09 17:50] LABS: CHLORIDE 105 mEq/L (98-107)
[2021-11-09 18:14] LABS: BASOPHILS % 0.6 % (0.0-2.0); EOSINOPHILS % 1.3 % (0.0-5.0); HEMATOCRIT. 40.8 % (36.0-48.0); HEMOGLOBIN. 13.4 g/dL (12.0-16.0); MEAN CORPUSCULAR HEMOGLOBIN 32.4 pg (28.0-32.0); MEAN CORPUSCULAR VOLUME 98.4 fL (81.0-99.0); MONOCYTES % 9.9 % (2.0-8.0); NEUTROPHILS % 33.2 % (40.0-76.0); RED BLOOD CELL COUNT 4.15 mill/uL (4.2-5.4); RED CELL DISTRIBUTION WIDTH 15.1 % (11.6-14.6)
[2021-11-09 19:04] LABS: CHLORIDE 108 mEq/L (98-107); MEAN PLATELET VOLUME 8.6 fl (7.4-10.4); PLATELET 194 x1000/uL (130-400)
[2021-11-09] MEDS ORDERED: P50 MT (19:16)
[2021-11-09] MEDS ORDERED: ACETAMINOPHEN 325MG TABLET PO ONE (19:30)
[2021-11-09 19:35] VITALS: BP 106/68
== END 2021-11-09 20:51 | disposition left against medical advice (07) ==
LOC: ER 16:13
DX: J45.901 Unspecified asthma with (acute) exacerbation (principal); I10 Essential (primary) hypertension; F20.9 Schizophrenia, unspecified; Z88.6 Allergy status to analgesic agent; Z91.014 Allergy to mammalian meats; Z88.8 Allergy status to other drugs, medicaments and biological substances; Z91.018 Allergy to other foods; Z88.0 Allergy status to penicillin
CPT/HCPCS: 36415; 71045; 80048; 80053; 83880; 84484; 85025; 93005; 96374; 99285; J2930; Z7610

== ENCOUNTER 2022-02-28 20:32 | Emergency (ER) | payer MEDICAID ==
[~2022-02-28] VITALS: Ht 152.4 cm; Wt 67.0 kg
[~2022-02-28 20:32] MED LIST changes: +P50 MT; +PROC-1 PO; -PROC10TA17 PO
[2022-02-28] MEDS ORDERED: METHYLPREDNISOLONE SOD SUCC 125 MG/2 ML VIAL IV STA (21:09)
[2022-02-28] MEDS ORDERED: ALBUTEROL (0.083%) 2.5MG/3ML NEB HHN STA (21:09)
[2022-02-28 22:55] LABS: CHLORIDE 105 mEq/L (98-107)
[2022-02-28 22:56] LABS: BASOPHILS % 0.8 % (0.0-2.0); EOSINOPHILS % 2.4 % (0.0-5.0); HEMATOCRIT. 42.7 % (36.0-48.0); HEMOGLOBIN. 13.8 g/dL (12.0-16.0); LYMPHOCYTES % 40.4 % (20.0-50.0); MEAN CORPUSCULAR HEMOGLOBIN 31.8 pg (28.0-32.0); MEAN CORPUSCULAR VOLUME 98.5 fL (81.0-99.0); MONOCYTES % 11.2 % (2.0-8.0); NEUTROPHILS % 45.2 % (40.0-76.0); RED BLOOD CELL COUNT 4.33 mill/uL (4.2-5.4); RED CELL DISTRIBUTION WIDTH 15.8 % (11.6-14.6)
[2022-02-28 23:31] LABS: MEAN PLATELET VOLUME 9.1 fl (7.4-10.4); PLATELET 257 x1000/uL (130-400)
[2022-03-01] MEDS ORDERED: P50 MT (00:52)
[2022-03-01] MEDS ORDERED: ALBU6.7H9 INH (00:52)
[2022-03-01 01:47] VITALS: BP 104/73
== END 2022-03-01 02:00 | disposition home or self-care (01) ==
LOC: ER 20:32
DX: R07.9 Chest pain, unspecified (principal); J45.901 Unspecified asthma with (acute) exacerbation; F17.210 Nicotine dependence, cigarettes, uncomplicated; I10 Essential (primary) hypertension; F20.9 Schizophrenia, unspecified; Z71.6 Tobacco abuse counseling; Z88.0 Allergy status to penicillin; Z88.6 Allergy status to analgesic agent; Z91.014 Allergy to mammalian meats; Z91.018 Allergy to other foods
CPT/HCPCS: 36415; 71045; 80053; 83880; 84484; 85025; 93005; 94640; 96374; 99285; J2930; Z7610

== ENCOUNTER 2022-03-04 23:31 | Emergency (ER) | payer MEDICAID ==
[~2022-03-04] VITALS: Ht 165.1 cm; Wt 60.0 kg
[2022-03-05] MEDS ORDERED: NITROGLYCERIN 0.4MG TABLET SL SL PRN (01:15)
[2022-03-05] MEDS ORDERED: HALOPERIDOL LACTATE 5MG/ML VIAL IM ONE (01:15)
[2022-03-05] MEDS ORDERED: ACETAMINOPHEN 500MG TABLET PO ONE (01:30)
[2022-03-05 01:32] VITALS: BP 148/98
[2022-03-05 01:38] LABS: BASOPHILS % 0.6 % (0.0-2.0); EOSINOPHILS % 1.6 % (0.0-5.0); HEMOGLOBIN. 14.6 g/dL (12.0-16.0); LYMPHOCYTES % 41.1 % (20.0-50.0); MEAN CORPUSCULAR HEMOGLOBIN 32.1 pg (28.0-32.0); MEAN CORPUSCULAR VOLUME 96.7 fL (81.0-99.0); MEAN PLATELET VOLUME 8.1 fl (7.4-10.4); MONOCYTES % 7.9 % (2.0-8.0); NEUTROPHILS % 48.8 % (40.0-76.0); PLATELET 304 x1000/uL (130-400); RED BLOOD CELL COUNT 4.55 mill/uL (4.2-5.4); RED CELL DISTRIBUTION WIDTH 15.5 % (11.6-14.6)
[2022-03-05] MEDS ORDERED: ONDANSETRON HCL 4MG/2ML INJ IV ONE (01:45)
[2022-03-05] MEDS ORDERED: METOCLOPRAMIDE HCL 10MG/2ML VIAL IV ONE (01:45)
[2022-03-05 02:02] LABS: CHLORIDE 102 mEq/L (98-107)
[2022-03-05 02:11] LABS: ETHANOL BLOOD 94 mg/dL
[2022-03-05 03:02] LABS: CLARITY URINE CLEAR (CLEAR); COLOR URINE YELLOW (YELLOW); KETONES URINE NEGATIVE (NEGATIVE); LEUKOCYTE ESTERASE URINE NEGATIVE (NEGATIVE); NITRITE URINE NEGATIVE (NEGATIVE); OCCULT BLOOD URINE NEGATIVE (NEGATIVE); PH URINE 5.5 (4.5-8.0); PROTEIN URINE NEGATIVE (NEGATIVE); UROBILINOGEN URINE 0.2 E.U./dL (0.2-1.0)
[2022-03-05 03:16] LABS: *AMPHETAMINES SCREEN URINE NEGATIVE (NEGATIVE); *BARBITURATES SCREEN URINE NEGATIVE (NEGATIVE); *BENZODIAZEPINES SCREEN URINE NEGATIVE (NEGATIVE); *COCAINE SCREEN URINE NEGATIVE (NEGATIVE); METHADONE URINE SCREEN NEGATIVE (NEGATIVE); OPIATES URINE SCREEN NEGATIVE (NEGATIVE); PHENCYCLIDINE URINE SCREEN NEGATIVE (NEGATIVE)
[2022-03-05 03:17] LABS: CANNABINOID URINE SCREEN PRESUMTIVE POSITIVE (NEGATIVE)
== END 2022-03-05 04:31 | disposition home or self-care (01) ==
LOC: ER 23:31
DX: F12.188 Cannabis abuse with other cannabis-induced disorder (principal); F10.129 Alcohol abuse with intoxication, unspecified; I10 Essential (primary) hypertension; Y90.4 Blood alcohol level of 80-99 mg/100 ml; Z87.19 Personal history of other diseases of the digestive system; Z88.6 Allergy status to analgesic agent; Z91.030 Bee allergy status; Z91.018 Allergy to other foods; Z88.0 Allergy status to penicillin
CPT/HCPCS: 36415; 71045; 80053; 80305; 80320; 81003; 83880; 85025; 93005; 96374; 96375; 99285; J1630; J2405; J2765; G0480

== ENCOUNTER 2024-08-01 19:25 | Emergency (ER) | payer MEDICAID ==
[~2024-08-01] VITALS: Ht 152.4 cm; Wt 48.7 kg
[~2024-08-01 19:25] MED LIST changes: +ALBU6.7H3 INH; -ALBU6.7H9 INH
[2024-08-01 19:48] VITALS: O2SAT 96
[2024-08-01] MEDS: ACETAMINOPHEN 500MG TABLET PO NR (21:00)
[2024-08-01 21:20] VITALS: BP 136/89; PULSE 69; RESP 16; TEMP 36.61404; O2SAT 100
== END 2024-08-01 21:40 | disposition home or self-care (01) ==
LOC: ER 19:25
DX: M79.642 Pain in left hand (principal); I10 Essential (primary) hypertension; Z88.6 Allergy status to analgesic agent; Z88.0 Allergy status to penicillin; Z90.49 Acquired absence of other specified parts of digestive tract; Z79.899 Other long term (current) drug therapy; Z98.890 Other specified postprocedural states
CPT/HCPCS: 73110; 73130; 99284

== ENCOUNTER 2024-08-12 23:23 | Emergency (ER) | payer MEDICAID ==
[~2024-08-12] VITALS: Ht 157.5 cm; Wt 73.0 kg
[~2024-08-12 23:23] MED LIST changes: +LACT-394 MT; -LACT10SO6 MT
[2024-08-13] VITALS: O2SAT 97
[2024-08-13] MEDS ORDERED: TOPUD PO (01:26)
[2024-08-13 02:36] VITALS: BP 139/83; PULSE 90; RESP 18; TEMP 37.00296; O2SAT 99
== END 2024-08-13 02:37 | disposition home or self-care (01) ==
LOC: ER 23:23
DX: S90.111A Contusion of right great toe without damage to nail, initial encounter (principal); I10 Essential (primary) hypertension; J44.89 Other specified chronic obstructive pulmonary disease; J45.909 Unspecified asthma, uncomplicated; W51.XXXA Accidental striking against or bumped into by another person, initial encounter; Y93.89 Activity, other specified; Y92.89 Other specified places as the place of occurrence of the external cause; Y99.8 Other external cause status; Z88.0 Allergy status to penicillin; Z88.6 Allergy status to analgesic agent; Z90.49 Acquired absence of other specified parts of digestive tract
CPT/HCPCS: 99284; 73130; 73630; Z7610 ×2

== ENCOUNTER 2024-08-27 10:06 | Inpatient (IN) | payer MEDICAID ==
[~2024-08-27] VITALS: Ht 152.4 cm; Wt 57.6 kg
[2024-08-27] VITALS (7 sets, daily range): BP systolic 121; BP diastolic 83; PULSE 78–101; RESP 19–29; TEMP 36.33624; O2SAT 98–100
[2024-08-27] MEDS: ALBUTEROL (0.083%) 2.5MG/3ML NEB HHN SCH (10:59)
[2024-08-27] MEDS: IPRATROPIUM BROMIDE (0.02%) 0.5MG/2.5ML NEB HHN STA (11:00)
[2024-08-27] MEDS: LACTATED RINGERS 1,000 ML IV SCH ×2 (11:11→20:08)
[2024-08-27] MEDS: ACETAMINOPHEN 325MG TABLET PO ONE (11:13)
[2024-08-27] MEDS: METHYLPREDNISOLONE SOD SUCC 125MG/2ML (ACT-O-VIAL) IV STA (11:13)
[2024-08-27 11:45] LABS: BASOPHILS % 0.4 % (0.0-2.0); EOSINOPHILS % 0.8 % (0.0-5.0); HEMATOCRIT. 40.9 % (36.0-48.0); HEMOGLOBIN. 13.1 g/dL (12.0-16.0); LYMPHOCYTES % 32.2 % (20.0-50.0); MEAN CORPUSCULAR HEMOGLOBIN 30.9 pg (28.0-32.0); MEAN CORPUSCULAR VOLUME 96.5 fL (81.0-99.0); MEAN PLATELET VOLUME 8.7 fl (7.4-10.4); MONOCYTES % 13.7 % (2.0-8.0); NEUTROPHILS % 52.9 % (40.0-76.0); PLATELET 253 x1000/uL (130-400); RED BLOOD CELL COUNT 4.23 mill/uL (4.2-5.4); RED CELL DISTRIBUTION WIDTH 18.6 % (11.6-14.6); WHITE BLOOD COUNT 5.9 x1000/uL (4.5-11.0)
[2024-08-27 12:04] LABS: CHLORIDE 98 mEq/L (98-107); POTASSIUM 3.8 mEq/L (3.5-5.1); SODIUM 136 mEq/L (136-145)
[2024-08-27 12:06] LABS: CALCIUM 8.8 mg/dL (8.7-10.4); CARBON DIOXIDE 34 mEq/L (21-32)
[2024-08-27 12:11] LABS: CREATININE 0.8 mg/dL (0.6-1.0); GLUCOSE 115 mg/dL (70-105); UREA NITROGEN BLOOD 13 mg/dL (9-23)
[2024-08-27 12:13] LABS: ALANINE AMINOTRANSFERASE 28 IU/L (10-49); ALBUMIN 4.1 g/dL (3.2-4.8); ASPARTATE AMINOTRANSFERASE 51 IU/L (<34); BILIRUBIN DIRECT 0.2 mg/dL (<=3.0); BILIRUBIN TOTAL 0.5 mg/dL (0.1-1.0); PROTEIN TOTAL 6.7 g/dL (6.0-8.3)
[2024-08-27 12:14] LABS: HCG SCREEN NEGATIVE
[2024-08-27] MEDS ORDERED: AZITHROMYCIN 500MG/250ML 250 ML IV SCH (12:15)
[2024-08-27] MEDS: MAGNESIUM 2 G PREMIX 50 ML IV ONE (13:05)
[2024-08-27] MEDS ORDERED: DOCUSATE SODIUM 100MG CAPSULE PO PRN (13:15)
[2024-08-27] MEDS ORDERED: IPRATROPIUM/ALBUTEROL 0.5-3(2.5)MG/3ML NEB HHN PRN (13:15)
[2024-08-27] MEDS ORDERED: ACETAMINOPHEN 325MG TABLET PO PRN ×2 (13:15)
[2024-08-27 13:20] LABS: TROPONIN I HIGH SENSITIVITY 50 ng/L (3.0-34)
[2024-08-27 13:58] LABS: TROPONIN I HIGH SENSITIVITY 45 ng/L (3.0-34)
[2024-08-27 14:25] LABS: BG BASE EXCESS 6.6 mmol/L (-2.0-3.0); BG DEOXYHEMOGLOBIN 3.2 % (0.0-5.0); BG FRACTION INSPIRED OXYGEN 35; BG HCO3 ACT 35.5 mmol/L (21.0-28.0); BG METHEMOGLOBIN 0.1 % (0.5-1.5); BG OXYGEN SATURATION 96.7 % (94.0-98.0); BG OXYHEMOGLOBIN 94.7 % (94.0-98.0); BG PCO2 72.5 mmHg (32.0-45.0); BG PH 7.308 (7.350-7.450); BG PO2 98.5 mmHg (83.0-108.0); BG TOTAL HEMOGLOBIN 13.9 g/dL (12.0-16.0); BG VENT MODE MASK - BIPAP
[2024-08-27 15:10] LABS: IRON 28 ug/dL (50-170)
[2024-08-27 15:13] LABS: ALBUMIN 4.3 g/dL (3.2-4.8); CREATINE KINASE 548 IU/L (34-145); TOTAL IRON BINDING CAPACITY 486 ug/dl (250-425)
[2024-08-27 15:17] LABS: FOLIC ACID (FOLATE) SERUM 15.27 ng/mL (>5.38); VITAMIN B12 SERUM 250 pg/mL (211-911)
[2024-08-27] MEDS: IPRATROPIUM/ALBUTEROL 0.5-3(2.5)MG/3ML NEB HHN SCH (15:38)
[2024-08-27] MEDS: ENOXAPARIN 40MG/0.4ML SYR SUBCUT SCH (15:44)
[2024-08-27] MEDS: CEFTRIAXONE 1GM/50ML 50 ML IV SCH (15:44)
[2024-08-27 16:11] LABS: AMMONIA 17 uMol/L (<32)
[2024-08-27] MEDS: MORPHINE SULFATE 2 MG/ML INJ (NOT FOR IM USE) IV PRN (17:00)
[2024-08-27] MEDS: PANTOPRAZOLE SODIUM 40 MG/VIAL IV SCH (17:01)
[2024-08-27] MEDS: DOXYCYCLINE 100MG/100ML 100 ML IV SCH (17:03)
[2024-08-27] MEDS: GUAIFENESIN 600MG ER TABLET PO SCH (21:00)
[2024-08-27] MEDS: ATORVASTATIN CALCIUM 20MG TABLET PO SCH (21:00)
[2024-08-27] MEDS: METHYLPREDNISOLONE SOD SUCC 40MG/ML (ACT-O-VIAL) IV SCH (21:29)
[2024-08-27] MEDS: MORPHINE SULFATE 2 MG/ML INJ (NOT FOR IM USE) IV NR (22:10)
[2024-08-28] VITALS (15 sets, daily range): BP systolic 100–142; BP diastolic 64–92; PULSE 72–97; RESP 17–25; TEMP 36.22512–36.55848; O2SAT 93–100
[2024-08-28] MEDS: LORAZEPAM 2MG/ML INJ IV NR (01:25)
[2024-08-28] MEDS: MORPHINE SULFATE 2 MG/ML INJ (NOT FOR IM USE) IV NR (08:54)
[2024-08-28] MEDS: METHYLPREDNISOLONE SOD SUCC 125MG/2ML (ACT-O-VIAL) IV SCH (08:55)
[2024-08-28 09:13] LABS: BG BASE EXCESS 8.5 mmol/L (-2.0-3.0); BG CARBOXYHEMOGLOBIN 0.4 % (0.5-1.5); BG DEOXYHEMOGLOBIN 5.2 % (0.0-5.0); BG FRACTION INSPIRED OXYGEN 32; BG OXYGEN SATURATION 94.8 % (94.0-98.0); BG OXYHEMOGLOBIN 94.4 % (94.0-98.0); BG PCO2 56.4 mmHg (32.0-45.0); BG PH 7.411 (7.350-7.450); BG PO2 71.2 mmHg (83.0-108.0); BG SAMPLE SITE RIGHT BRACHIAL; BG TOTAL HEMOGLOBIN 13.4 g/dL (12.0-16.0); BG VENT MODE NASAL CANNULA
[2024-08-28] MEDS: ASPIRIN 81MG EC TABLET PO SCH (13:43)
[2024-08-28] MEDS: CEFTRIAXONE 1GM/50ML 50 ML IV SCH (15:30)
[2024-08-28] MEDS ORDERED: NALOXONE HCL 0.4MG/ML VIAL IV PRN (16:00)
[2024-08-28] MEDS ORDERED: HYDROCODONE/ACETAMINOPHEN 10/325MG TABLET PO PRN (16:00)
[2024-08-28] MEDS ORDERED: DOXYCYCLINE 100MG/100ML 100 ML IV SCH (16:30)
[2024-08-28] MEDS: DOXYCYCLINE 100MG/100ML 100 ML IV SCH (17:01)
[2024-08-28] MEDS: GUAIFENESIN 200MG/10ML SUGAR FREE UDC PO PRN (17:23)
[2024-08-28] MEDS: MORPHINE SULFATE 2 MG/ML INJ (NOT FOR IM USE) IV PRN (19:35)
[2024-08-28 21:17] LABS: BASOPHILS % 0.3 % (0.0-2.0); HEMATOCRIT. 39.9 % (36.0-48.0); HEMOGLOBIN. 12.8 g/dL (12.0-16.0); LYMPHOCYTES % 8.4 % (20.0-50.0); MEAN CORPUSCULAR HEMOGLOBIN 30.8 pg (28.0-32.0); MEAN CORPUSCULAR VOLUME 96.1 fL (81.0-99.0); MEAN PLATELET VOLUME 9.4 fl (7.4-10.4); NEUTROPHILS % 84.3 % (40.0-76.0); PLATELET 282 x1000/uL (130-400); RED BLOOD CELL COUNT 4.15 mill/uL (4.2-5.4); RED CELL DISTRIBUTION WIDTH 18.1 % (11.6-14.6); WHITE BLOOD COUNT 8.2 x1000/uL (4.5-11.0)
[2024-08-28 21:18] LABS: CHLORIDE 102 mEq/L (98-107); POTASSIUM 5.1 mEq/L (3.5-5.1); SODIUM 136 mEq/L (136-145)
[2024-08-28 21:19] LABS: CALCIUM 9.3 mg/dL (8.7-10.4); CARBON DIOXIDE 31 mEq/L (21-32)
[2024-08-28 21:24] LABS: CREATININE 0.8 mg/dL (0.6-1.0); GLUCOSE 144 mg/dL (70-105); TRIGLYCERIDE 55 mg/dL (0-150); UREA NITROGEN BLOOD 14 mg/dL (9-23)
[2024-08-28 21:24] LABS: *AMPHETAMINES SCREEN URINE NEGATIVE (NEGATIVE)
[2024-08-28 21:25] LABS: CREATINE KINASE MB FRACTION 5.7 ng/mL (0.5-3.6); LDL CHOLESTEROL 64 mg/dL (5-100)
[2024-08-28 21:25] LABS: *BARBITURATES SCREEN URINE NEGATIVE (NEGATIVE); *BENZODIAZEPINES SCREEN URINE PRESUMPTIVE POSITIVE (NEGATIVE); *COCAINE SCREEN URINE NEGATIVE (NEGATIVE); CANNABINOID URINE SCREEN PRESUMPTIVE POSITIVE (NEGATIVE); CLARITY URINE TURBID (CLEAR); COLOR URINE DARK YELLOW (YELLOW); ECSTASY MDMA SCREEN URINE NEGATIVE (NEGATIVE); GLUCOSE URINE NEGATIVE (NEGATIVE); KETONES URINE NEGATIVE (NEGATIVE); LEUKOCYTE ESTERASE URINE TRACE (NEGATIVE); METHADONE URINE SCREEN NEGATIVE (NEGATIVE); NITRITE URINE POSITIVE (NEGATIVE); OCCULT BLOOD URINE NEGATIVE (NEGATIVE); OPIATES URINE SCREEN PRESUMPTIVE POSITIVE (NEGATIVE); PH URINE 5.5 (4.5-8.0); PHENCYCLIDINE URINE SCREEN NEGATIVE (NEGATIVE); PROTEIN URINE 2+ (NEGATIVE); SPECIFIC GRAVITY URINE >1.040 (1.005-1.030)
[2024-08-28 21:26] LABS: CHOLESTEROL 117 mg/dL (<200); CREATINE KINASE 236 IU/L (34-145); HDL CHOLESTEROL 43 mg/dL (>65)
[2024-08-28 21:29] LABS: THYROID STIMULATING HORMONE < 0.10 uIU/mL (0.55-4.78)
[2024-08-28 22:15] LABS: BACTERIA URINE 4+; RBC URINE NONE SEEN /hpf (0-2); SQUAMOUS EPITHELIAL CELL URINE FEW /lpf (RARE/1+); WBC URINE 0-2 /hpf (0-2)
[2024-08-28] MEDS: KETOROLAC 15MG/ML VIAL IV NR (22:45)
[2024-08-29] VITALS (11 sets, daily range): BP systolic 116–162; BP diastolic 73–98; PULSE 66–108; RESP 19–26; TEMP 36.22512–36.61404; O2SAT 95–100
[2024-08-29] MEDS: DIPHENHYDRAMINE 50MG/ML VIAL IV PRN (01:56)
[2024-08-29 02:02] LABS: CREATINE KINASE MB FRACTION 5.9 ng/mL (0.5-3.6)
[2024-08-29] MEDS: HYDRALAZINE 20MG/ML VIAL IV PRN (03:12)
[2024-08-29 10:22] LABS: BG BASE EXCESS 9.1 mmol/L (-2.0-3.0); BG CARBOXYHEMOGLOBIN 0.3 % (0.5-1.5); BG DEOXYHEMOGLOBIN 5.1 % (0.0-5.0); BG FRACTION INSPIRED OXYGEN 32; BG HCO3 ACT 35.2 mmol/L (21.0-28.0); BG METHEMOGLOBIN 0.3 % (0.5-1.5); BG OXYGEN SATURATION 94.9 % (94.0-98.0); BG OXYHEMOGLOBIN 94.3 % (94.0-98.0); BG PCO2 54.2 mmHg (32.0-45.0); BG PO2 71.7 mmHg (83.0-108.0); BG SAMPLE SITE RIGHT RADIAL; BG TOTAL HEMOGLOBIN 13.3 g/dL (12.0-16.0); BG VENT MODE NASAL CANNULA
[2024-08-29] MEDS: METHYLPREDNISOLONE SOD SUCC 40MG/ML (ACT-O-VIAL) IV SCH (12:50)
[2024-08-29 13:07] LABS: CHLORIDE 101 mEq/L (98-107); POTASSIUM 4.5 mEq/L (3.5-5.1); SODIUM 138 mEq/L (136-145)
[2024-08-29 13:08] LABS: CALCIUM 9.6 mg/dL (8.7-10.4); CARBON DIOXIDE 30 mEq/L (21-32); WHITE BLOOD COUNT 10.4 x1000/uL (4.5-11.0)
[2024-08-29 13:13] LABS: CREATININE 0.7 mg/dL (0.6-1.0); GLUCOSE 141 mg/dL (70-105); UREA NITROGEN BLOOD 13 mg/dL (9-23)
[2024-08-29 13:14] LABS: TROPONIN I HIGH SENSITIVITY 8 ng/L (3.0-34)
[2024-08-29 13:15] LABS: AMYLASE 54 IU/L (30-118)
[2024-08-29 13:22] LABS: HEMATOCRIT. 41.1 % (36.0-48.0); HEMOGLOBIN. 12.9 g/dL (12.0-16.0); MEAN CORPUSCULAR HEMOGLOBIN 30.1 pg (28.0-32.0); MEAN CORPUSCULAR HGB CONC 31.4 g/dL (31.0-37.0); MEAN CORPUSCULAR VOLUME 95.8 fL (81.0-99.0); MEAN PLATELET VOLUME 9.4 fl (7.4-10.4); PLATELET 297 x1000/uL (130-400); RED BLOOD CELL COUNT 4.29 mill/uL (4.2-5.4); RED CELL DISTRIBUTION WIDTH 18.7 % (11.6-14.6)
[2024-08-29 13:25] LABS: DIFFERENTIAL COMMENT 1
[2024-08-29 16:27] LABS: ANISOCYTOSIS 1+; PLATELET ESTIMATE NORMAL
[2024-08-29] MEDS: MAGNESIUM 2 G PREMIX 50 ML IV NR (17:30)
[2024-08-29] MEDS ORDERED: DOXYCYCLINE HYCLATE 100MG CAPSULE PO SCH (21:00)
== END 2024-08-29 19:30 | disposition left against medical advice (07) | DRG 720 ==
LOC: ER 10:06 → EDBEDREQ 10:39 → 5EST 12:10 → EDBEDREQ 12:14 → EDBEDREQSVC 12:14
PROVIDERS: ADMIT Hospitalist; ATTEND Hospitalist
PROC: 5A09357 Assistance with Respiratory Ventilation, Less than 24 Consecutive Hours, Continuous Positive Airway Pressure (ICD-10-PCS; principal; 2024-08-27)
PROC: 5A09357 Assistance with Respiratory Ventilation, Less than 24 Consecutive Hours, Continuous Positive Airway Pressure (ICD-10-PCS; 2024-08-28)
DX: A41.9 Sepsis, unspecified organism (principal); J96.21 Acute and chronic respiratory failure with hypoxia; I21.A1 Myocardial infarction type 2; J18.9 Pneumonia, unspecified organism; E87.4 Mixed disorder of acid-base balance; D57.1 Sickle-cell disease without crisis; J44.1 Chronic obstructive pulmonary disease with (acute) exacerbation; J45.901 Unspecified asthma with (acute) exacerbation; J44.0 Chronic obstructive pulmonary disease with (acute) lower respiratory infection; J96.22 Acute and chronic respiratory failure with hypercapnia; Z20.822 Contact with and (suspected) exposure to COVID-19; I10 Essential (primary) hypertension; E83.42 Hypomagnesemia; K44.9 Diaphragmatic hernia without obstruction or gangrene; K57.30 Diverticulosis of large intestine without perforation or abscess without bleeding; G89.4 Chronic pain syndrome; M79.641 Pain in right hand; M79.642 Pain in left hand; N39.0 Urinary tract infection, site not specified; Z53.29 Procedure and treatment not carried out because of patient's decision for other reasons; R50.81 Fever presenting with conditions classified elsewhere; Z88.0 Allergy status to penicillin; Z87.11 Personal history of peptic ulcer disease; Z79.82 Long term (current) use of aspirin; Z90.49 Acquired absence of other specified parts of digestive tract; Z98.891 History of uterine scar from previous surgery; Z79.899 Other long term (current) drug therapy; Z88.6 Allergy status to analgesic agent; Z91.014 Allergy to mammalian meats; Z91.018 Allergy to other foods; E78.5 Hyperlipidemia, unspecified; F11.20 Opioid dependence, uncomplicated; S62.305S Unspecified fracture of fourth metacarpal bone, left hand, sequela
CPT/HCPCS: 36415; 36600; 71045; 74176; 80048; 80061; 80076; 80305; 81003; 82040; 82140; 82150; 82375; 82550; 82553; 82607; 82746; 82805; 83036; 83540; 83550; 83605; 83735; 83880; 84145; 84443; 84484; 84703; 85025; 85044; 85379; 87426; 87804; 93005; 93306; 93970; 94640; 94660; 99291; J0360; J0456; J0696; J1200; J1650; J1885; J2060; J2270; J2470; J2919; J2920; J3475; J3490; J7120

== ENCOUNTER 2025-07-11 12:41 | Emergency (ER) | payer MEDICAID ==
[~2025-07-11] VITALS: Ht 165.1 cm; Wt 48.0 kg
[~2025-07-11 12:41] MED LIST changes: +ALBU18HF2; -ALBU4TAB6 PO; -ALBU6.7H3 INH; +ATOR40TA70 PO; +BUDE6.9H IH; +CYCL10TA21 PO; +FURO20TA4 PO; +GABA-1180 PO; -GABA-529 MT; -LACT-394 MT; +LEVO750T68 MT; -LORA-249 MT; -LORA2TAB2 PO; -ONDA4TAB5 MT; -PROC-1 PO; +RISP-29 PO
[2025-07-11 12:51] VITALS: O2SAT 99
[2025-07-11 15:39] LABS: BASOPHILS % 0.3 % (0.0-2.0); EOSINOPHILS % 1.8 % (0.0-5.0); HEMATOCRIT. 34.9 % (36.0-48.0); HEMOGLOBIN. 11.0 g/dL (12.0-16.0); LYMPHOCYTES % 32.4 % (20.0-50.0); MEAN PLATELET VOLUME 8.8 fl (7.4-10.4); MONOCYTES % 10.3 % (2.0-8.0); NEUTROPHILS % 55.2 % (40.0-76.0); PLATELET 275 x1000/uL (130-400); RED BLOOD CELL COUNT 3.60 mill/uL (4.2-5.4); RED CELL DISTRIBUTION WIDTH 17.9 % (11.6-14.6)
[2025-07-11 15:55] LABS: CREATININE 0.6 mg/dL (0.6-1.0); UREA NITROGEN BLOOD 11 mg/dL (9-23)
[2025-07-11] MEDS: ONDANSETRON HCL 4MG/2ML INJ IV ONE (16:03)
[2025-07-11] MEDS: HYDROMORPHONE HCL 2MG TABLET PO ONE (16:49)
[2025-07-11] MEDS: ONDANSETRON HCL 4MG/2ML INJ IV SCH (18:12)
[2025-07-11 18:32] LABS: CLARITY URINE CLOUDY (CLEAR); COLOR URINE YELLOW (YELLOW); GLUCOSE URINE NEGATIVE (NEGATIVE); KETONES URINE NEGATIVE (NEGATIVE); LEUKOCYTE ESTERASE URINE NEGATIVE (NEGATIVE); NITRITE URINE NEGATIVE (NEGATIVE); OCCULT BLOOD URINE NEGATIVE (NEGATIVE); PH URINE >=9.0 (4.5-8.0); PROTEIN URINE NEGATIVE (NEGATIVE); SPECIFIC GRAVITY URINE 1.015 (1.005-1.030); UROBILINOGEN URINE 0.2 E.U./dL (0.2-1.0)
[2025-07-11] MEDS: DIPHENHYDRAMINE 50MG/ML VIAL IV ONE ×2 (18:51→20:25)
[2025-07-11 18:54] LABS: AMORPHOUS SEDIMENT URINE 2+ /lpf; BACTERIA URINE 1+; RBC URINE NONE SEEN /hpf (0-2); SQUAMOUS EPITHELIAL CELL URINE FEW /lpf (RARE/1+); WBC URINE 0-2 /hpf (0-2)
[2025-07-11] MEDS ORDERED: METHYLPREDNISOLONE 40MG/ML INJ IV ONE (20:15)
[2025-07-11] MEDS: METHYLPREDNISOLONE SOD SUCC 125MG/2ML (ACT-O-VIAL) IV SCH (20:22)
[2025-07-11] MEDS: HYDROMORPHONE HCL/PF 2MG/ML INJ IV ONE ×2 (20:25→23:52)
[2025-07-11] MEDS: DIPHENHYDRAMINE 50MG/ML VIAL IV SCH (22:34)
[2025-07-11] MEDS: IOHEXOL-300 100 ML BOTTLE ONE (23:52)
[2025-07-12 00:30] VITALS: BP 155/87; PULSE 72; RESP 16; TEMP 36.8; O2SAT 98
== END 2025-07-12 00:30 | disposition home or self-care (01) ==
LOC: ER 12:41
DX: G89.29 Other chronic pain (principal); D64.9 Anemia, unspecified; D57.1 Sickle-cell disease without crisis; I11.0 Hypertensive heart disease with heart failure; I50.9 Heart failure, unspecified; J44.9 Chronic obstructive pulmonary disease, unspecified; Z79.899 Other long term (current) drug therapy; Z88.0 Allergy status to penicillin; Z88.1 Allergy status to other antibiotic agents; Z88.5 Allergy status to narcotic agent; Z88.6 Allergy status to analgesic agent
CPT/HCPCS: 80048; 81003; 83605; 85025; 36415; 74177; 96374; 96375; 96376; 99285; Q9967; J1200; J2919; J2405; J1171; Z7610 ×4; A4615

== ENCOUNTER 2025-07-16 01:34 | Emergency (ER) | payer MEDICAID ==
[~2025-07-16] VITALS: Ht 152.4 cm; Wt 59.0 kg
[2025-07-16 01:42] VITALS: O2SAT 100
[2025-07-16] MEDS: TETANUS, DIPHTHERIA, PERTUSSIS VAC/PF 0.5ML (>10YR OLD) IM ONE (02:50)
[2025-07-16] MEDS: LIDOCAINE HCL 1% 20ML VIAL INFIL ONE (02:51)
[2025-07-16] MEDS: LORAZEPAM 0.5MG TABLET PO ONE (03:26)
[2025-07-16] MEDS: ACETAMINOPHEN 325MG TABLET PO ONE (03:27)
[2025-07-16] MEDS ORDERED: BO1 TP (05:23)
[2025-07-16 05:41] VITALS: BP 138/87; PULSE 89; RESP 16; TEMP 36.8; O2SAT 99
== END 2025-07-16 05:41 | disposition home or self-care (01) ==
LOC: ER 01:34
DX: S61.213A Laceration without foreign body of left middle finger without damage to nail, initial encounter (principal); I11.0 Hypertensive heart disease with heart failure; I50.9 Heart failure, unspecified; F41.9 Anxiety disorder, unspecified; D57.1 Sickle-cell disease without crisis; J44.89 Other specified chronic obstructive pulmonary disease; Z79.51 Long term (current) use of inhaled steroids; Z88.6 Allergy status to analgesic agent; Z88.1 Allergy status to other antibiotic agents; Z88.5 Allergy status to narcotic agent; Z88.0 Allergy status to penicillin; Z79.899 Other long term (current) drug therapy; Y04.0XXA Assault by unarmed brawl or fight, initial encounter; Y93.89 Activity, other specified; Y92.000 Kitchen of unspecified non-institutional (private) residence as the place of occurrence of the external cause; Y99.8 Other external cause status
CPT/HCPCS: 73130; 90715; 12001; 90471; 99283; J2003; Z7610 ×3